=== PATIENT | male | born 1955 | race Caucasian/White ===

== ENCOUNTER 2020-07-10 07:04 | Outpatient (REF) | payer MEDICARE, SELFPAY ==
[2020-07-10 07:51] LABS: MANUAL DIFF FLAG NO
[2020-07-10 07:54] LABS: Basophils Percent Auto 0.4 % (0-2); Eosinophils Absolute Auto 0.1 X10*3/uL (0.0-0.4); Eosinophils Percent Auto 1.8 % (0-4); Hematocrit 41.7 % (42-52); Hemoglobin 13.9 g/dl (14.0-18.0); Imm Gran Abs Auto 0.02 X10*3/uL (0.00-0.03); Imm Gran Pct Auto 0.3 % (0.0-0.4); Lymphocytes Absolute Auto 1.5 X10*3/uL (1.2-4.9); Mean Corpuscular HGB Conc 33.3 g/dl (31.0-36.0); Mean Corpuscular Volume 95.9 fL (80-98); Mean Platelet Volume 9.8 fL (9.4-12.4); Monocytes Absolute Auto 0.7 X10*3/uL (0.1-1.2); Monocytes Percent Auto 10.7 % (2-11); Neutrophils Absolute Auto 4.3 X10*3/uL (2.0-8.3); Neutrophils Percent Auto 63.8 % (45-73); Platelet Count 243 X10*3/uL (160-400); Red Blood Count 4.35 X10*6/uL (4.60-5.80); Red Cell Distribution Width 12.2 % (11.0-16.0); White Blood Count 6.7 X10*3/uL (4.8-10.8)
[2020-07-10 08:21] LABS: Alanine Aminotransferase 11 U/L (0-40); Albumin Level 4.2 g/dL (3.5-5.0); Alkaline Phosphatase 96 U/L (39-117); Anion Gap 12 (12-20); Aspartate Amino Transferase 14 U/L (5-37); Bilirubin Total 0.7 mg/dL (0.0-1.0); Blood Urea Nitrogen 19 mg/dL (9-16); Carbon Dioxide 32 mmol/L (22-29); Chloride 100 mmol/L (96-108); Cholesterol 148 mg/dL; Estimated Glomerular Filt Rate > 60; Glucose Fasting 134 mg/dL (60-99); HDL Cholesterol 46 mg/dL; LDL Cholesterol Calculated 83 mg/dl; Potassium 4.9 mmol/l (3.3-5.1); Sodium 139 mmol/L (135-145); Total Protein 6.9 g/dL (6.5-8.0); Triglycerides 98 mg/dL
[2020-07-10 08:42] LABS: TSH reflex Free T4 1.58 mIU/mL (0.32-4.0); Vitamin D 25-OH Total 25.9 ng/mL (>30)
[2020-07-10 09:05] LABS: Glucose Urine UA 500 MG/DL (NEG); Leukocyte Esterase Urine NEG (NEG); Nitrite Urine NEG (NEG); PH 5.5 (5.0-8.0); Specific Gravity - Urine 1.025 (1.005-1.025); Urine Blood NEG (NEG); Urine Ketones NEG (NEG); Urine Protein NEG (NEG-TRACE)
[2020-07-10 09:06] LABS: Appearance Urine CLEAR; Color Urine YELLOW
[2020-07-10 09:33] LABS: Creatinine Urine 107.97 mg/dL; Microalbum/Creatinine Ratio Ur 6.4 ug/mg cr
[2020-07-10 09:52] LABS: Mucus Urine TRACE /LPF; RBC Urine 0 /HPF (0); Squamous Epithelial Cell Urine TRACE /LPF; WBC Urine 0 /HPF (0-4)
== END 2020-07-10 07:05 | disposition home or self-care (01) ==
LOC: HO.LAB 07:04
PROVIDERS: PCP Internal Medicine; Visit Provider Internal Medicine
DX: E11.9 Type 2 diabetes mellitus without complications (principal); I10 Essential (primary) hypertension; E78.5 Hyperlipidemia, unspecified; D64.9 Anemia, unspecified; E55.9 Vitamin D deficiency, unspecified; E66.9 Obesity, unspecified
CPT/HCPCS: 36415; 80053; 80061; 81001; 81003; 82043; 82306; 84443; 85025

== ENCOUNTER 2020-07-16 16:26 | Outpatient (REF) | payer MEDICARE, SELFPAY | END 2020-07-16 16:27 | disposition home or self-care (01) | LOC: HO.LNP 16:26 | PROVIDERS: Visit Provider Internal Medicine | DX: H60.21 Malignant otitis externa, right ear (principal) | CPT/HCPCS: 87070; 87077; 87186; 87205 ==

== ENCOUNTER 2020-11-13 07:01 | Outpatient (REF) | payer MEDICARE, SELFPAY ==
[2020-11-13 07:28] LABS: MANUAL DIFF FLAG NO
[2020-11-13 07:37] LABS: Basophils Percent Auto 0.6 % (0-2); Eosinophils Absolute Auto 0.1 X10*3/uL (0.0-0.4); Eosinophils Percent Auto 2.1 % (0-4); Hemoglobin 13.6 g/dl (14.0-18.0); Imm Gran Abs Auto 0.01 X10*3/uL (0.00-0.03); Imm Gran Pct Auto 0.2 % (0.0-0.4); Lymphocytes Absolute Auto 1.4 X10*3/uL (1.2-4.9); Lymphocytes Percent Auto 21.6 % (20-40); Mean Corpuscular HGB Conc 33.2 g/dl (31.0-36.0); Mean Corpuscular Volume 96.5 fL (80-98); Mean Platelet Volume 9.8 fL (9.4-12.4); Monocytes Absolute Auto 0.6 X10*3/uL (0.1-1.2); Monocytes Percent Auto 9.5 % (2-11); Neutrophils Absolute Auto 4.3 X10*3/uL (2.0-8.3); Platelet Count 238 X10*3/uL (160-400); Red Blood Count 4.25 X10*6/uL (4.60-5.80); Red Cell Distribution Width 12.7 % (11.0-16.0); White Blood Count 6.6 X10*3/uL (4.8-10.8)
[2020-11-13 07:44] LABS: Glucose Urine UA 500 MG/DL (NEG); Leukocyte Esterase Urine NEG (NEG); Nitrite Urine NEG (NEG); Specific Gravity - Urine 1.025 (1.005-1.025); Urine Blood NEG (NEG); Urine Ketones NEG (NEG); Urine Protein NEG (NEG-TRACE)
[2020-11-13 07:51] LABS: Appearance Urine CLEAR; Color Urine YELLOW
[2020-11-13 08:00] LABS: Creatinine Urine 135.53 mg/dL; Microalbum/Creatinine Ratio Ur 5.9 ug/mg cr
[2020-11-13 08:02] LABS: Alanine Aminotransferase 9 U/L (0-40); Albumin Level 4.2 g/dL (3.5-5.0); Alkaline Phosphatase 96 U/L (39-117); Anion Gap 12 (12-20); Aspartate Amino Transferase 13 U/L (5-37); Bilirubin Total 0.9 mg/dL (0.0-1.0); Blood Urea Nitrogen 18 mg/dL (9-16); Calcium 8.8 mg/dL (8.4-10.2); Carbon Dioxide 29 mmol/L (22-29); Chloride 103 mmol/L (96-108); Cholesterol 137 mg/dL; Estimated Glomerular Filt Rate > 60; Glucose Fasting 166 mg/dL (60-99); HDL Cholesterol 45 mg/dL; LDL Cholesterol Calculated 75 mg/dl; Potassium 4.2 mmol/L (3.3-5.1); Sodium 140 mmol/L (135-145); Triglycerides 86 mg/dL
[2020-11-13 08:25] LABS: TSH reflex Free T4 1.74 uIU/mL (0.32-4.0); Vitamin D 25-OH Total 24.7 ng/mL (>30)
== END 2020-11-13 07:02 | disposition home or self-care (01) ==
LOC: HO.LAB 07:01
PROVIDERS: PCP Internal Medicine; Visit Provider Internal Medicine
DX: I10 Essential (primary) hypertension (principal); E78.00 Pure hypercholesterolemia, unspecified; E11.9 Type 2 diabetes mellitus without complications; E66.9 Obesity, unspecified; E55.9 Vitamin D deficiency, unspecified
CPT/HCPCS: 36415; 80053; 80061; 81003; 82043; 82306; 84443; 85025

== ENCOUNTER 2021-03-16 06:26 | Outpatient (REF) | payer MEDICARE, SELFPAY ==
[2021-03-16 06:59] LABS: MANUAL DIFF FLAG NO
[2021-03-16 07:03] LABS: Basophils Percent Auto 0.5 % (0-2); Eosinophils Absolute Auto 0.1 X10*3/uL (0.0-0.4); Eosinophils Percent Auto 1.7 % (0-4); Hematocrit 41.9 % (42-52); Imm Gran Abs Auto 0.02 X10*3/uL (0.00-0.03); Imm Gran Pct Auto 0.3 % (0.0-0.4); Lymphocytes Absolute Auto 1.5 X10*3/uL (1.2-4.9); Lymphocytes Percent Auto 22.6 % (20-40); Mean Corpuscular HGB Conc 33.4 g/dl (31.0-36.0); Mean Corpuscular Hemoglobin 32.4 pg (27.0-33.0); Monocytes Absolute Auto 0.8 X10*3/uL (0.1-1.2); Monocytes Percent Auto 11.9 % (2-11); Neutrophils Absolute Auto 4.2 X10*3/uL (2.0-8.3); Platelet Count 242 X10*3/uL (160-400); Red Blood Count 4.32 X10*6/uL (4.60-5.80); Red Cell Distribution Width 12.6 % (11.0-16.0); White Blood Count 6.6 X10*3/uL (4.8-10.8)
[2021-03-16 07:31] LABS: Alanine Aminotransferase 10 U/L (0-40); Albumin Level 4.3 g/dL (3.5-5.0); Alkaline Phosphatase 96 U/L (39-117); Anion Gap 10 (12-20); Aspartate Amino Transferase 14 U/L (5-37); Bilirubin Total 0.6 mg/dL (0.0-1.0); Blood Urea Nitrogen 13 mg/dL (9-16); Calcium 9.6 mg/dL (8.4-10.2); Carbon Dioxide 33 mmol/L (22-29); Chloride 103 mmol/L (96-108); Cholesterol 132 mg/dL; Estimated Glomerular Filt Rate > 60; Glucose Fasting 116 mg/dL (60-99); HDL Cholesterol 45 mg/dL; LDL Cholesterol Calculated 73 mg/dl; Sodium 141 mmol/L (135-145); Total Protein 7.1 g/dL (6.5-8.0); Triglycerides 74 mg/dL
[2021-03-16 07:53] LABS: TSH reflex Free T4 1.55 uIU/mL (0.32-4.0); Vitamin D 25-OH Total 27.5 ng/mL (>30)
[2021-03-16 08:08] LABS: Estimated Average Glucose 194 mg/dL; Hemoglobin A1c % 8.4 %
[2021-03-16 10:10] LABS: Glucose Urine UA NEG (NEG); Leukocyte Esterase Urine NEG (NEG); Nitrite Urine NEG (NEG); Specific Gravity - Urine <= 1.005 (1.005-1.025); Urine Blood NEG (NEG); Urine Ketones NEG (NEG); Urine Protein NEG (NEG-TRACE)
[2021-03-16 10:11] LABS: Appearance Urine CLEAR; Color Urine YELLOW
[2021-03-16 10:22] LABS: Creatinine Urine 27.42 mg/dL; Microalbumin Urine < 5.0 mg/L
== END 2021-03-16 06:27 | disposition home or self-care (01) ==
LOC: HO.LAB 06:26
PROVIDERS: PCP Internal Medicine; Visit Provider Internal Medicine
DX: D64.9 Anemia, unspecified (principal); I10 Essential (primary) hypertension; E78.00 Pure hypercholesterolemia, unspecified; E11.9 Type 2 diabetes mellitus without complications; E66.9 Obesity, unspecified; E55.9 Vitamin D deficiency, unspecified
CPT/HCPCS: 36415; 80053; 80061; 81003; 82043; 82306; 83036; 84443; 85025

== ENCOUNTER 2021-10-13 06:06 | Outpatient (REF) | payer MEDICARE, SELFPAY ==
[2021-10-13 06:24] LABS: MANUAL DIFF FLAG NO
[2021-10-13 07:27] LABS: Basophils Percent Auto 0.4 % (0-2); Eosinophils Absolute Auto 0.1 X10*3/uL (0.0-0.4); Eosinophils Percent Auto 1.9 % (0-4); Hematocrit 43.5 % (42.0-52.0); Hemoglobin 14.3 g/dl (14.0-18.0); Imm Gran Abs Auto 0.02 X10*3/uL (0.00-0.03); Imm Gran Pct Auto 0.3 % (0.0-0.4); Lymphocytes Absolute Auto 1.7 X10*3/uL (1.2-4.9); Lymphocytes Percent Auto 24.8 % (20-40); Mean Corpuscular HGB Conc 32.9 g/dl (31.0-36.0); Mean Corpuscular Hemoglobin 31.8 pg (27.0-33.0); Mean Corpuscular Volume 96.9 fL (80.0-98.0); Mean Platelet Volume 10.2 fL (9.4-12.4); Monocytes Absolute Auto 0.7 X10*3/uL (0.1-1.2); Monocytes Percent Auto 10.8 % (2-11); Neutrophils Absolute Auto 4.1 x10*3/uL (2.0-8.3); Neutrophils Percent Auto 61.8 % (45-73); Platelet Count 283 X10*3/uL (160-400); Red Blood Count 4.49 X10*6/uL (4.60-5.80); Red Cell Distribution Width 12.3 % (11.0-16.0); White Blood Count 6.7 X10*3/uL (4.8-10.8)
[2021-10-13 07:50] LABS: Estimated Average Glucose 200 mg/dL; Hemoglobin A1c % 8.6 %
[2021-10-13 07:55] LABS: B Type Natriuretic Peptide < 10 pg/mL (<100)
[2021-10-13 07:59] LABS: Alanine Aminotransferase 12 U/L (0-40); Albumin Level 4.2 g/dL (3.5-5.0); Alkaline Phosphatase 104 U/L (39-117); Anion Gap 11 (12-20); Aspartate Amino Transferase 14 U/L (5-37); Bilirubin Total 0.7 mg/dL (0.0-1.0); Blood Urea Nitrogen 14 mg/dL (9-16); Calcium 9.5 mg/dL (8.4-10.2); Carbon Dioxide 31 mmol/L (22-29); Chloride 100 mmol/L (96-108); Cholesterol 115 mg/dL; Estimated Glomerular Filt Rate > 60; Glucose Fasting 147 mg/dL (60-99); HDL Cholesterol 37 mg/dL; LDL Cholesterol Calculated 62 mg/dl; Potassium 4.4 mmol/L (3.3-5.1); Sodium 138 mmol/L (135-145); Total Protein 7.1 g/dL (6.5-8.0); Triglycerides 82 mg/dL
[2021-10-13 08:08] LABS: Erythrocyte Sedimentation Rate 7 MM/HR (0-15)
[2021-10-13 08:13] LABS: Creatinine Urine 65.23 mg/dL; Microalbum/Creatinine Ratio Ur 7.6 ug/mg cr
[2021-10-13 08:23] LABS: TSH reflex Free T4 2.92 uIU/mL (0.32-4.0); Vitamin D 25-OH Total 27.9 ng/mL (>30)
[2021-10-13 08:26] LABS: Appearance Urine CLEAR; Color Urine YELLOW; Glucose Urine UA 100 MG/DL (NEG); Leukocyte Esterase Urine NEG (NEG); Nitrite Urine NEG (NEG); Urine Blood NEG (NEG); Urine Ketones NEG (NEG); Urine Protein NEG (NEG-TRACE)
== END 2021-10-13 06:07 | disposition home or self-care (01) ==
LOC: HO.LAB 06:06
PROVIDERS: PCP Internal Medicine; Visit Provider Internal Medicine
DX: E11.9 Type 2 diabetes mellitus without complications (principal); R60.0 Localized edema; D64.9 Anemia, unspecified; I10 Essential (primary) hypertension; E55.9 Vitamin D deficiency, unspecified; E78.00 Pure hypercholesterolemia, unspecified; E66.9 Obesity, unspecified; Z85.048 Personal history of other malignant neoplasm of rectum, rectosigmoid junction, and anus
CPT/HCPCS: 36415; 80053; 80061; 81003; 82043; 82306; 83036; 83880; 84443; 85025; 85652

== ENCOUNTER 2022-01-18 06:18 | Outpatient (REF) | payer MEDICARE, SELFPAY ==
[2022-01-18 06:35] LABS: MANUAL DIFF FLAG NO
[2022-01-18 07:33] LABS: Basophils Percent Auto 0.5 % (0-2); Eosinophils Absolute Auto 0.2 X10*3/uL (0.0-0.4); Hematocrit 42.2 % (42.0-52.0); Hemoglobin 13.9 g/dl (14.0-18.0); Imm Gran Abs Auto 0.02 X10*3/uL (0.00-0.03); Imm Gran Pct Auto 0.3 % (0.0-0.4); Lymphocytes Absolute Auto 1.8 X10*3/uL (1.2-4.9); Lymphocytes Percent Auto 22.2 % (20-40); Mean Corpuscular HGB Conc 32.9 g/dl (31.0-36.0); Mean Corpuscular Hemoglobin 31.9 pg (27.0-33.0); Mean Corpuscular Volume 96.8 fL (80.0-98.0); Mean Platelet Volume 10.4 fL (9.4-12.4); Monocytes Absolute Auto 0.8 X10*3/uL (0.1-1.2); Monocytes Percent Auto 10.3 % (2-11); Neutrophils Absolute Auto 5.1 x10*3/uL (2.0-8.3); Neutrophils Percent Auto 64.7 % (45-73); Platelet Count 272 X10*3/uL (160-400); Red Blood Count 4.36 X10*6/uL (4.60-5.80); Red Cell Distribution Width 12.6 % (11.0-16.0); White Blood Count 7.9 X10*3/uL (4.8-10.8)
[2022-01-18 07:41] LABS: Estimated Average Glucose 203 mg/dL; Hemoglobin A1c % 8.7 %
[2022-01-18 07:54] LABS: Alanine Aminotransferase 12 U/L (0-40); Albumin Level 4.3 g/dL (3.5-5.0); Alkaline Phosphatase 93 U/L (39-117); Anion Gap 13 (12-20); Aspartate Amino Transferase 14 U/L (5-37); Bilirubin Total 0.9 mg/dL (0.0-1.0); Blood Urea Nitrogen 16 mg/dL (9-16); Calcium 9.6 mg/dL (8.4-10.2); Carbon Dioxide 30 mmol/L (22-29); Chloride 99 mmol/L (96-108); Cholesterol 147 mg/dL; Estimated Glomerular Filt Rate > 60; Glucose Fasting 166 mg/dL (60-99); HDL Cholesterol 44 mg/dL; LDL Cholesterol Calculated 81 mg/dl; Potassium 4.4 mmol/L (3.3-5.1); Sodium 138 mmol/L (135-145); Total Protein 7.2 g/dL (6.5-8.0); Triglycerides 110 mg/dL
[2022-01-18 08:12] LABS: Appearance Urine CLEAR; Color Urine YELLOW; Glucose Urine UA 250 MG/DL (NEG); Leukocyte Esterase Urine NEG (NEG); Nitrite Urine NEG (NEG); Urine Blood NEG (NEG); Urine Ketones NEG (NEG); Urine Protein NEG (NEG-TRACE)
[2022-01-18 08:17] LABS: TSH reflex Free T4 2.32 uIU/mL (0.32-4.0); Vitamin D 25-OH Total 27.6 ng/mL (>30)
[2022-01-18 08:29] LABS: Creatinine Urine 94.22 mg/dL; Microalbum/Creatinine Ratio Ur 8.4 ug/mg cr
== END 2022-01-18 06:19 | disposition home or self-care (01) ==
LOC: HO.LAB 06:18
PROVIDERS: PCP Internal Medicine; Visit Provider Internal Medicine
DX: E55.9 Vitamin D deficiency, unspecified (principal); I10 Essential (primary) hypertension; E78.00 Pure hypercholesterolemia, unspecified; E11.9 Type 2 diabetes mellitus without complications
CPT/HCPCS: 36415; 80053; 80061; 81003; 82043; 82306; 83036; 84443; 85025

== ENCOUNTER 2022-01-19 09:07 | Outpatient (REF) | payer MEDICARE, SELFPAY ==
--- NOTE | ~2022-01-19 | XR_ITS ---
EXAMINATION: XR HUMERUS, LEFT CLINICAL INFORMATION: Pain COMPARISON: None TECHNIQUE: AP and lateral views of the left humerus. FINDINGS: No fracture of the left humerus. No focal soft tissue swelling identified. No radiopaque foreign body. Visualized portions of the left shoulder and elbow are grossly unremarkable. Visualized left-sided ribs and lung parenchyma are unremarkable. XR/XR humerus LT IMPRESSION: No fracture.
== END 2022-01-19 09:08 | disposition home or self-care (01) ==
LOC: HO.XRAY 09:07
PROVIDERS: PCP Internal Medicine; Visit Provider Nurse Practitioner Family
DX: M79.602 Pain in left arm (principal)
CPT/HCPCS: 73060

== ENCOUNTER 2022-02-22 06:47 | Outpatient (RCR) | payer MEDICARE, SELFPAY ==
[2022-02-22 07:15] VITALS: BP 192/92; PULSE 98; O2SAT 95
--- NOTE | 2022-02-22 08:54 | MHC.PT.EP ---
[facility] [place] Office [place] Office [place] Office [address] Jocelyne Caldwell [address] [phone] F: [phone] F: [phone] F: [phone] F: [phone] Physical Therapy Plan of Care Date of Evaluation: Date of Surgery: Diagnosis: UNSTEADINESS ON FEET Assessment: 66 YO MALE REF TO PT WITH A DIAGNOSIS OF UNSTEADINESS ON HIS FEET-> HE NOTES HE HAS THUS FAR BEEN ABLE TO PREVENT HIMSELF FROM FALLING. HE RETIRED 3 YRS AGO FROM A PHYSICALLY DEMANDING JOB AND HE NOTES HIS ACTIVITY LEVEL HAS GRADUALLY DECREASED. HIS PT EVAL WAS LIGHTLY INITIATED, IN ASSESSMENT, BP WAS ELEVATED AND THEREFORE ACTIVITY WAS MODIFIED. Pt'S MD WAS CONTACTED AND UPDATED RE FINDINGS. Pt CURRENTLY ASYMPTOMATIC. OBJECTIVELY, Pt HAS DECR POSTURAL AWARENESS W MILD SCOLIOSIS AND LIMITED TRUNK ROTAT, DECR MOBILITY IN EBONIE ANKLES/ HS/ MILDLY IN HPS, DECR LEs STRENGTH EVIDENT WITH HIS INCR USE OF UEs WITH SIT <-> STAND TRANSFERS. OBSERVED GAIT: TIGHT PSOAS, TIGH CALVES, DECR TRUNK ROTAT, AND LIMITED UEs SWING. Pt NOTES DIFFIC DESCENDING > ASCENDING ESCALATORS, STAIR MGMT, INCR AMB, AND IN/ OUT OF HIS VEHICLE. I DID NOT PERFORM BALANCE TESTS OR FORMAL RESISTIVE TASKS TODAY, PREFER PERFORMING AFTER BP CONCERNS ADDRESSED. Pt WILL BE A GOOD PT CANDIDATE FOR SKILLED PT TO ADDRESS LEs FLEXIB, Jt ROM, LEs STRENGTH, PROGR FUNCT MOBILITY , AND DEV A SOLID HEP. 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 Manual therapy to restore motion and function. Therapeutic exercise to improve strength and flexibility. Neuromuscular re-education for posture and balance. Therapeutic activities to return to functional activities of daily living. Electronically signed by: Lalitha Woo,PT Please sign and return to therapist. Thank you for your referral.
--- NOTE | 2022-04-05 08:57 | MHC.PT.DC ---
[facility] [place] Office [place] Office [place] Office [address] Jocelyne Caldwell [address] [phone] F: [phone] F: [phone] F: [phone] F: [phone] Physical Therapy Discharge Report Diagnosis: UNSTEADINESS ON FEET Date of Surgery: Date of Evaluation: 02/22/22 Date of Discharge: 04/05/22 Treatments to Date: 1 Cancellations to Date: No Shows to Date: Discharge Status: Recommend MD Follow-up Discharge Summary: Pt'S PT EVAL WAS LIGHTLY INITIATED, IN ASSESSMENT, BP WAS ELEVATED AND THEREFORE ACTIVITY WAS MODIFIED. Pt'S MD WAS CONTACTED AND UPDATED RE FINDINGS. PT WAS PLACED ON HOLD AWAITING FURTHER ORDERS APPROPRIATE. Electronically signed by: Lalitha WooPT Please sign and return to therapist. Thank you for your referral.
== END 2022-04-05 08:56 | disposition home or self-care (01) ==
LOC: HO.PT 06:47
PROVIDERS: PCP Internal Medicine; Visit Provider Nurse Practitioner Family
DX: R26.81 Unsteadiness on feet (principal)
CPT/HCPCS: 97162

== ENCOUNTER 2022-06-05 06:51 | Outpatient (REF) | payer MEDICARE, SELFPAY ==
[2022-06-05 07:39] LABS: Cholesterol 128 mg/dL; HDL Cholesterol 32 mg/dL; LDL Cholesterol Calculated 77 mg/dl; Triglycerides 95 mg/dL
[2022-06-05 07:45] LABS: Hematocrit 40.5 % (42.0-52.0); Hemoglobin 13.4 g/dl (14.0-18.0); Mean Corpuscular HGB Conc 33.1 g/dl (31.0-36.0); Mean Corpuscular Hemoglobin 31.3 pg (27.0-33.0); Mean Corpuscular Volume 94.6 fL (80.0-98.0); Mean Platelet Volume 10.3 fL (9.4-12.4); Platelet Count 280 X10*3/uL (160-400); Red Blood Count 4.28 X10*6/uL (4.60-5.80); Red Cell Distribution Width 12.5 % (11.0-16.0); White Blood Count 6.7 X10*3/uL (4.8-10.8)
[2022-06-05 07:51] LABS: Estimated Average Glucose 243 mg/dL; Hemoglobin A1c % 10.1 %
[2022-06-08 17:02] LABS: Vitamin D 25-OH, D2 <4 ng/mL; Vitamin D 25-OH, D3 37 ng/mL; Vitamin D 25-OH, Total 37 ng/mL (30-100)
== END 2022-06-05 06:52 | disposition home or self-care (01) ==
LOC: HO.LAB 06:51
PROVIDERS: PCP Internal Medicine; Visit Provider Nurse Practitioner Family
DX: E66.9 Obesity, unspecified (principal); E78.00 Pure hypercholesterolemia, unspecified; I10 Essential (primary) hypertension; R26.81 Unsteadiness on feet; E11.9 Type 2 diabetes mellitus without complications; D64.9 Anemia, unspecified
CPT/HCPCS: 36415; 80061; 82306; 83036; 85027

== ENCOUNTER 2022-09-02 07:07 | Outpatient (REF) | payer MEDICARE, SELFPAY ==
[2022-09-02 07:28] LABS: MANUAL DIFF FLAG NO
[2022-09-02 07:34] LABS: Basophils Absolute Auto 0.1 X10*3/uL (0.0-0.2); Basophils Percent Auto 0.7 % (0-2); Eosinophils Absolute Auto 0.1 X10*3/uL (0.0-0.4); Eosinophils Percent Auto 1.6 % (0-4); Hematocrit 45.5 % (42.0-52.0); Hemoglobin 14.8 g/dl (14.0-18.0); Imm Gran Abs Auto 0.02 X10*3/uL (0.00-0.03); Imm Gran Pct Auto 0.3 % (0.0-0.4); Lymphocytes Absolute Auto 1.5 X10*3/uL (1.2-4.9); Mean Corpuscular HGB Conc 32.5 g/dl (31.0-36.0); Mean Corpuscular Hemoglobin 30.8 pg (27.0-33.0); Mean Corpuscular Volume 94.8 fL (80.0-98.0); Mean Platelet Volume 9.6 fL (9.4-12.4); Monocytes Absolute Auto 0.7 X10*3/uL (0.1-1.2); Monocytes Percent Auto 9.1 % (2-11); Neutrophils Absolute Auto 5.2 x10*3/uL (2.0-8.3); Neutrophils Percent Auto 68.3 % (45-73); Platelet Count 291 X10*3/uL (160-400); White Blood Count 7.6 X10*3/uL (4.8-10.8)
[2022-09-02 07:52] LABS: Estimated Average Glucose 171 mg/dL; Hemoglobin A1c % 7.6 %
[2022-09-02 08:19] LABS: Alanine Aminotransferase 15 U/L (0-40); Albumin Level 4.4 g/dL (3.5-5.0); Alkaline Phosphatase 91 U/L (39-117); Anion Gap 12 (12-20); Aspartate Amino Transferase 15 U/L (5-37); Bilirubin Total 0.8 mg/dL (0.0-1.0); Blood Urea Nitrogen 16 mg/dL (9-16); Calcium 9.6 mg/dL (8.4-10.2); Carbon Dioxide 30 mmol/L (22-29); Chloride 102 mmol/L (96-108); Cholesterol 116 mg/dL; Estimated Glomerular Filt Rate > 60; Glucose Fasting 124 mg/dL (60-99); HDL Cholesterol 34 mg/dL; LDL Cholesterol Calculated 66 mg/dl; Potassium 4.4 mmol/L (3.3-5.1); Sodium 140 mmol/L (135-145); TSH reflex Free T4 2.36 uIU/mL (0.32-4.0); Total Protein 7.2 g/dL (6.5-8.0); Triglycerides 80 mg/dL; Vitamin D 25-OH Total 51.8 ng/mL (>30)
[2022-09-02 09:02] LABS: Appearance Urine Clear; Color Urine Dark Yellow; Glucose Urine UA 250 mg/dL (Negative); Leukocyte Esterase Urine Negative (Negative); Nitrite Urine Negative (Negative); PH 5.5 (5.0-9.0); Specific Gravity - Urine 1.025 (1.005-1.025); Urine Blood Negative (Negative); Urine Ketones Negative (Negative); Urine Protein Negative (Neg-Trace)
[2022-09-02 09:12] LABS: Folate > 20.0 ng/mL (> or = 4.0); Vitamin B12 562 pg/mL (200-900)
[2022-09-02 09:34] LABS: Creatinine Urine 168.56 mg/dL; Microalbum/Creatinine Ratio Ur 7.1 ug/mg cr
[2022-09-05 01:54] LABS: C Peptide 1.05 ng/mL (0.80-3.85)
[2022-09-06 17:04] LABS: Glutamic acid decarboxylase Ab <5 IU/mL (<5)
== END 2022-09-02 07:08 | disposition home or self-care (01) ==
LOC: HO.LAB 07:07
PROVIDERS: PCP Internal Medicine; Visit Provider Internal Medicine
DX: E55.9 Vitamin D deficiency, unspecified (principal); E53.8 Deficiency of other specified B group vitamins; R20.2 Paresthesia of skin; I10 Essential (primary) hypertension; E78.00 Pure hypercholesterolemia, unspecified; E11.9 Type 2 diabetes mellitus without complications
CPT/HCPCS: 36415; 80053; 80061; 81003; 82043; 82306; 82607; 82746; 83036; 84443; 84681; 85025; 86341

== ENCOUNTER 2022-12-10 15:42 | Emergency (ER) | payer MEDICARE, SELFPAY ==
--- NOTE | ~2022-12-10 | CT_ITS ---
EXAMINATION: CT HEAD WITHOUT CONTRAST CT CERVICAL SPINE WITHOUT CONTRAST CLINICAL INFORMATION: Neck pain, syncope, head strike COMPARISON: None TECHNIQUE: A noncontrast CT of the head and a noncontrast CT of the cervical spine with sagittal and coronal reformats. This CT examination was performed using dose optimization techniques as appropriate, variously including the following: *Automated exposure control *Adjustment of mA and/or kV according to patient size (this includes techniques or standardized protocols for targeted exams where dose is matched to indication/reason for exam; i.e. extremities or head) *Use of iterative reconstruction technique DLP: 1184 FINDINGS: No intra-axial or extra-axial hemorrhage. No acute territorial infarct. Chronic small vessel ischemic disease of the periventricular white matter with generalized atrophy. Preservation of guzman-white matter differentiation. No mass, mass effect, or midline shift. No fracture. Partial opacification of the left mastoid air cells. The right mastoid air cells and visualized paranasal sinuses are otherwise clear. Normal alignment of the cervical spine. No fracture. No prevertebral soft tissue swelling. Multilevel degenerative disc disease, most prominent at C5-C6 and C6-C7. Prominent degenerative changes at the anterior atlantoaxial junction. CT/CT head/brain wo IV con IMPRESSION: 1. No acute intracranial abnormality. Partial opacification of the left mastoid air cells inferiorly. Could represent mastoiditis. 2. No cervical spine fracture or traumatic subluxation.
--- NOTE | ~2022-12-10 | XR_ITS ---
EXAMINATION: XR CHEST CLINICAL INFORMATION: Fall with chest trauma COMPARISON: None available. TECHNIQUE: Frontal view of the chest was obtained. FINDINGS: No significant abnormality is noted involving the heart, lungs, mediastinum, bony thorax or soft tissues. No fractures are seen of the bony thorax. XR/XR chest 1V IMPRESSION: Unremarkable examination.
--- NOTE | ~2022-12-10 | CT_ITS ---
EXAMINATION: CT HEAD WITHOUT CONTRAST CT CERVICAL SPINE WITHOUT CONTRAST CLINICAL INFORMATION: Neck pain, syncope, head strike COMPARISON: None TECHNIQUE: A noncontrast CT of the head and a noncontrast CT of the cervical spine with sagittal and coronal reformats. This CT examination was performed using dose optimization techniques as appropriate, variously including the following: *Automated exposure control *Adjustment of mA and/or kV according to patient size (this includes techniques or standardized protocols for targeted exams where dose is matched to indication/reason for exam; i.e. extremities or head) *Use of iterative reconstruction technique DLP: 1184 FINDINGS: No intra-axial or extra-axial hemorrhage. No acute territorial infarct. Chronic small vessel ischemic disease of the periventricular white matter with generalized atrophy. Preservation of guzman-white matter differentiation. No mass, mass effect, or midline shift. No fracture. Partial opacification of the left mastoid air cells. The right mastoid air cells and visualized paranasal sinuses are otherwise clear. Normal alignment of the cervical spine. No fracture. No prevertebral soft tissue swelling. Multilevel degenerative disc disease, most prominent at C5-C6 and C6-C7. Prominent degenerative changes at the anterior atlantoaxial junction. CT/CT cervical spine wo IV con IMPRESSION: 1. No acute intracranial abnormality. Partial opacification of the left mastoid air cells inferiorly. Could represent mastoiditis. 2. No cervical spine fracture or traumatic subluxation.
[2022-12-10 16:02] VITALS: BP 94/60; PULSE 102; O2SAT 94
[2022-12-10 16:15] VITALS: BP 137/65; PULSE 101; RESP 20; TEMP 35.9; BMI 30.8
--- NOTE | 2022-12-10 18:04 | ECG_ITS ---
Test Reason : SOB Blood Pressure : / mmHG Vent. Rate : 101 BPM Atrial Rate : 101 BPM P-R Int : 174 ms QRS Dur : 096 ms QT Int : 360 ms P-R-T Axes : 055 058 030 degrees QTc Int : 466 ms Sinus tachycardia Otherwise normal ECG When compared with ECG of 30-OCT-2004 17:59, ST now depressed in Lateral leads Nonspecific T wave abnormality now evident in Lateral leads Referred By: Chelo Bruce Electronically Signed By:CHUNG TALBERT
--- NOTE | 2022-12-10 18:16 | ED.GENADULT ---
HPI - General Adult General Chief complaint: Dizziness Stated complaint: SYNCOPE Time Seen by Provider: 12/10/22 18:03 Source: patient Mode of arrival: ambulatory Limitations: no limitations History of Present Illness HPI narrative: 66-year-old male history of obesity, anemia, diabetes, hypertension presenting to the emergency department for evaluation of near syncopal episode just prior to arrival. Patient tells me that he has been feeling sick for the past few days with congestion, productive cough, fatigue, malaise, chills. He tells me me was walking out of the shower, felt dizzy and lightheaded called for help came into the bathroom, he lowered himself to the ground as he felt like he was going to fall, witnessed this, he did not lose consciousness, no head strike no injuries to chest, abdomen or pelvis, No LOC . Patient reports he just has not been feeling well and battling a cold and has been eating and drinking less than usual. Feeling slightly weak. Denies sick contacts. Denies chest pain, shortness of breath, nausea, vomiting, abdominal pain, headache, vision changes, dizziness. NIH stroke scale 0 on arrival. Related Data Home Medications Medication Instructions Recorded Confirmed cholecalciferol (vitamin D3) 50 50 mcg PO DAILY 07/15/20 09/06/22 mcg (2,000 unit) capsule Previous Rx's Medication Instructions Recorded pen needle, diabetic 32 gauge x 1 ea subcut DAILY #30 ea 07/28/21 (BD Ultra-Fine Racquel Pen Needle) atorvastatin 20 mg tablet 20 mg PO BEDTIME 90 days #90 tabs 04/10/22 pioglitazone 30 mg tablet 30 mg PO DAILY 90 days #90 tabs 04/12/22 lisinopril 10 mg tablet 10 mg PO DAILY 90 days #90 tabs 08/11/22 Trulicity 0.75 mg/0.5 mL 0.75 mg (0.5 mL) subcut QWEEK 4 09/06/22 subcutaneous pen injector weeks #2 mL (dulaglutide) insulin glargine U-300 conc 300 35 unit (0.1167 mL) subcut DAILY 09/06/22 unit/mL (1.5 mL) subcutaneous pen 90 days #10.503 mL (Toujeo SoloStar U-300 Insulin) metformin 1,000 mg tablet 1,000 mg PO BID 90 days #180 tabs 09/06/22 albuterol sulfate 90 mcg/actuation 2 inh inhalation Q4-6H PRN 12/10/22 breath activated powder inhaler shortness of breath or wheezing #1 ea benzonatate 100 mg capsule 100 mg PO BID PRN cough #20 caps 12/10/22 doxycycline hyclate 100 mg capsule 100 mg PO BID 10 days #20 caps 12/10/22 Allergies Allergy/AdvReac Type Severity Reaction Status Date / Time dulaglutide [Trulicity] AdvReac Intermediate abdominal Verified 09/06/22 09:08 pain Review of Systems Review of Systems: Constitutional : No Weight loss, No Fever, No Chills, + Fatigue, + Malaise ENT/Mouth : No sore throat, No Rhinorrhea, + congestion Eyes: No Eye Pain, No Swelling, No Redness Cardiovascular : No Chest Pain, No SOB, No Dyspnea on Exertion, No Orthopnea, No Edema, No Palpitations Respiratory : + Cough, + Sputum, No Wheezing Gastrointestinal : No Nausea, No Vomiting, No Diarrhea, No Constipation, No abdominal Pain, No Hematochezia, No Melena Genitourinary : No Dysuria, No Urinary Frequency, No Hematuria, Musculoskeletal : No joint pain, No Myalgias, No Joint Swelling Skin : No Skin Lesions, No rash Neuro : No Weakness, No Numbness, No Dizziness, No Headache Psych : No Anxiety/Panic, No Depression All other systems reviewed and are negative Yes all other systems are reviewed and are negative [facility] Past Medical History Attestation statement: The following information was validated with the patient. Source: old records reviewed and nursing notes reviewed Medical History Anemia Benign essential hypertension Bilateral lower extremity edema Diabetes mellitus History of malignant neoplasm of rectum Obesity (BMI 30-39.9) Otitis externa of left ear Pure hypercholesterolemia Vitamin D deficiency Surgical History History of colon resection (~08/23/04) Family History Family History Father Medical history unknown Mother Hypertension Stroke Diabetes Cancer Social History Social History Housing: Apartment Alcohol intake: never Patient Tobacco Use Status: Former Tobacco user Smoked in Last 30 Days: No e-Cigarette/Vaping Use: Never Used Second Hand Smoke Exposure: Yes Use of substances other than those prescribed or required for medical reasons: No Advance Directives: No Advance Directives Information Provided: No service: No Current occupational status: retired Cognitive needs: No Hearing needs: No Vision needs: Yes (glasses) Physical Exam ED Vital Signs: Vital Signs - 24 hr 12/10/22 16:15 Temperature 96.6 F L Pulse Rate 101 H Respiratory Rate 20 Blood Pressure 137/65 BMI result Body Mass Index 30.8 vss Appearance: Alert.? Oriented X3.? No acute distress.? Head: Normocephalic, atraumatic, no step-offs or deformities Eyes: Pupils equal, round and reactive to light.? ENT: Pharynx normal.? Neck: Normal inspection.? Neck supple.? CVS: Normal heart rate and rhythm.? Pulses normal.? Respiratory: No respiratory distress.? Breath sounds diminished bilaterally.? Abdomen: Soft and nontender.? Skin: Skin warm and dry.? Normal skin color.? Normal skin turgor.? Extremities: No lower extremity edema.? No calf ttp. 5/5 strength to bilateral upper and lower extremities Neuro: Oriented X 3.? No motor deficit.? No sensory deficit. CN 2-12 intact . Normal [id number], [id number]. Ambulatory with steady tandem gait normal coordination. Course Reevaluation(s) Reevaluation #1: CBC with normocytic anemia, appears to be around patient's baseline. Chemistry with no acute findings requiring intervention. Patient's total bilirubin 1.6 however no tenderness to palpation of abdomen a right upper quadrant, likely secondary to viral illness. Troponin negative, EKG without evidence of acute ischemia. Patient with sinus tachycardia. He does not have chest pain or shortness of breath at this time. He tells me he does has a dry cough. COVID and influenza negative. Head CT is no acute intracranial abnormality. Partial opacification of the left mastoid air cells inferiorly which could represent mastoiditis however patient has no mastoid tenderness therefore low suspicion. No cervical spine fractures or traumatic subluxations. Chest x-ray unremarkable. Will to treat for bacterial bronchitis. Time: 20:46 Medications Administered Discontinued Medications Generic Name Dose Route Start Last Admin Trade Name Ralph PRN Reason Stop Dose Admin Sodium Chloride 1,000 mls @ 999 mls/hr 12/10/22 18:15 12/10/22 19:09 Ns IV 12/10/22 19:15 999 mls/hr .Q1H1M JANICE Administration Medical Decision Making Medical Decision Making [facility] Narrative: 1800 66-year-old male presents with fatigue, malaise, productive cough, chills, near syncopal episode prior to arrival Physical examination with diminished breath sounds bilaterally. Regular rate and rhythm. Abdomen soft nontender nondistended. Neuro nonfocal. Cerebellar intact. NIH stroke scale 0. Concerns for viral illness. Will rule out pneumonia. Patient did not fall and hit her his head, neuro nonfocal unlikely intracranial hemorrhage, stroke, posterior stroke. No traumatic injuries to the chest, abdomen and pelvis sustained, low suspicion for fractures, dislocations or injuries to internal organs. No chest pain, sob or hypoxia unlikley PE. Plan at this time labs, chest x-ray, COVID and flu testing, troponin, EKG, orthostatic vital signs. Differential Diagnosis Differential Diagnoses: The differential diagnosis associated with the presentation includes Concerns for viral illness. Will rule out pneumonia. Patient did not fall and hit her his head, neuro nonfocal unlikely intracranial hemorrhage, stroke, posterior stroke. No traumatic injuries to the chest, abdomen and pelvis sustained, low suspicion for fractures, dislocations or injuries to internal organs. No chest pain, sob or hypoxia unlikley PE. Admission/Observation Consideration of admission/observation: Escalation of care including admission/observation considered Lab Data [facility] Lab Attestation statement: I reviewed the patient's lab results. 12/10/22 19:34 12/10/22 19:34 Labs: Lab Results 12/10/22 12/10/22 12/10/22 Range/Units 19:34 19:34 19:34 WBC 10.4 (4.8-10.8) X10*3/uL RBC 4.32 L (4.60-5.80) X10*6/uL Hgb 13.5 L (14.0-18.0) g/dl Hct 41.1 L (42.0-52.0) % MCV 95.1 (80.0-98.0) fL MCH 31.3 (27.0-33.0) pg MCHC 32.8 (31.0-36.0) g/dl RDW 13.2 (11.0-16.0) % Plt Count 209 D (160-400) X10*3/uL MPV 9.4 (9.4-12.4) fL Immature Gran % (Auto) 0.3 (0.0-0.4) % Neut % (Auto) 73.5 H (45-73) % Lymph % (Auto) 10.7 L (20-40) % [place] % (Auto) 14.8 H (2-11) % Eos % (Auto) 0.3 (0-4) % Baso % (Auto) 0.4 (0-2) % Lymph # (Auto) 1.1 L (1.2-4.9) X10*3/uL [place] # (Auto) 1.5 H (0.1-1.2) X10*3/uL Eos # (Auto) 0.0 (0.0-0.4) X10*3/uL Baso # (Auto) 0.0 (0.0-0.2) X10*3/uL Abs Immat Gran (auto) 0.03 (0.00-0.03) X10*3/uL Absolute Neuts (auto) 7.7 (2.0-8.3) x10*3/uL Absolute Nucleated RBC 0.000 (0.0-0.012) X10*3/uL Nucleated RBC % (auto) 0.0 (0.0-0.2) /100WBC Smear Tech's Comments VERIFIED Sodium 139 (135-145) mmol/L Potassium 4.3 (3.3-5.1) mmol/L Chloride 103 (96-108) mmol/L Carbon Dioxide 26 (22-29) mmol/L Anion Gap 14 (12-20) BUN 12 (9-16) mg/dL Creatinine 0.77 (0.5-1.4) mg/dL Estim Creat Clear Calc 120.6 Estimated GFR > 60 Random Glucose 135 H (60-115) mg/dL Calcium 8.8 D (8.4-10.2) mg/dL Magnesium 1.6 (1.6-2.6) mg/dL Total Bilirubin 1.6 H (0.0-1.0) mg/dL AST 16 (5-37) U/L ALT 12 (0-40) U/L Alkaline Phosphatase 88 (39-117) U/L Troponin I High Sens 4.7 (<3.5-35.0) ng/L Total Protein 6.5 (6.5-8.0) g/dL Albumin 4.0 (3.5-5.0) g/dL COVID-19 (JYOTI) (Negative) COVID-19 Clin Com Influenza Type A (LIZ) (Negative) Influenza Type B (LIZ) (Negative) Influenza A & B Note 12/10/22 12/10/22 Range/Units 19:34 19:34 WBC (4.8-10.8) X10*3/uL RBC (4.60-5.80) X10*6/uL Hgb (14.0-18.0) g/dl Hct (42.0-52.0) % MCV (80.0-98.0) fL MCH (27.0-33.0) pg MCHC (31.0-36.0) g/dl RDW (11.0-16.0) % Plt Count (160-400) X10*3/uL MPV (9.4-12.4) fL Immature Gran % (Auto) (0.0-0.4) % Neut % (Auto) (45-73) % Lymph % (Auto) (20-40) % [place] % (Auto) (2-11) % Eos % (Auto) (0-4) % Baso % (Auto) (0-2) % Lymph # (Auto) (1.2-4.9) X10*3/uL [place] # (Auto) (0.1-1.2) X10*3/uL Eos # (Auto) (0.0-0.4) X10*3/uL Baso # (Auto) (0.0-0.2) X10*3/uL Abs Immat Gran (auto) (0.00-0.03) X10*3/uL Absolute Neuts (auto) (2.0-8.3) x10*3/uL Absolute Nucleated RBC (0.0-0.012) X10*3/uL Nucleated RBC % (auto) (0.0-0.2) /100WBC Smear Tech's Comments Sodium (135-145) mmol/L Potassium (3.3-5.1) mmol/L Chloride (96-108) mmol/L Carbon Dioxide (22-29) mmol/L Anion Gap (12-20) BUN (9-16) mg/dL Creatinine (0.5-1.4) mg/dL Estim Creat Clear Calc Estimated GFR Random Glucose (60-115) mg/dL Calcium (8.4-10.2) mg/dL Magnesium (1.6-2.6) mg/dL Total Bilirubin (0.0-1.0) mg/dL AST (5-37) U/L ALT (0-40) U/L Alkaline Phosphatase (39-117) U/L Troponin I High Sens (<3.5-35.0) ng/L Total Protein (6.5-8.0) g/dL Albumin (3.5-5.0) g/dL COVID-19 (JYOTI) Negative (Negative) COVID-19 Clin Com See Note Influenza Type A (LIZ) Negative (Negative) Influenza Type B (LIZ) Negative (Negative) Influenza A & B Note See Note Core Measures AMI core measures followed: Yes Measure exclusions: not indicated Critical Care Time Critical Care Time Critical Care Time: No Discharge Plan Discharge Clinical Impression: Bronchitis, Near syncope Patient Disposition: Home, Self-Care Instructions: Acute Bronchitis (ED), Near Syncope (ED) Additional Instructions: Take your medications as prescribed. If you were prescribed antibiotics today, it is important that you take your medication to their entirety, do not skip any doses, do not finish them early. Follow-up with your primary care provider this week. Return to the emergency department with new or worsening symptoms. Such as fevers, chills, chest pain, shortness of breath, nausea, vomiting, dizziness, headache, vision changes, lethargy In case of emergency call 911 Please drink plenty of fluids. If you develop a fever you can take ibuprofen every 6 hours, Tylenol every 4 as needed for fevers, chills, pain or discomfort. Take antibiotics as prescribed. Also use inhaler as indicated. XR/XR chest 1V IMPRESSION: Unremarkable examination. ? CT/CT cervical spine & head wo IV con IMPRESSION: 1.? No acute intracranial abnormality. Partial opacification of the left mastoid air cells inferiorly. Could represent mastoiditis. 2.? No cervical spine fracture or traumatic subluxation. Prescriptions: New doxycycline hyclate 100 mg capsule 100 mg PO BID 10 Days Qty: 20 0RF albuterol sulfate 90 mcg/actuation aerosol powdr breath activated 2 inh inhalation Q4-6H PRN (Reason: shortness of breath or wheezing) Qty: 1 0RF benzonatate 100 mg capsule 100 mg PO BID PRN (Reason: cough) Qty: 20 0RF No Action pen needle, diabetic [BD Ultra-Fine Racquel Pen Needle] 32 gauge x 5/32 needle 1 ea subcut DAILY Qty: 30 12RF atorvastatin 20 mg tablet 20 mg PO BEDTIME 90 Days Qty: 90 3RF pioglitazone 30 mg tablet 30 mg PO DAILY 90 Days Qty: 90 3RF lisinopril 10 mg tablet 10 mg PO DAILY 90 Days Qty: 90 3RF cholecalciferol (vitamin D3) 50 mcg (2,000 unit) capsule 50 mcg PO DAILY Kelly Kelly U-300 Insulin 300 unit/mL (1.5 mL) insulin pen 35 unit subcut DAILY 90 Days Qty: 10.503 5RF metformin 1,000 mg tablet 1,000 mg PO BID 90 Days Qty: 180 3RF Trulicity 0.75 mg/0.5 mL pen injector 0.75 mg subcut QWEEK 28 Days Qty: 2 3RF Referrals: Nakul Torres MD [Primary Care Provider] - 2 days ED Physician,[facility] [Physician] - 2 days
[2022-12-10] MEDS: 0.9 % Sodium Chloride 1,000 ML 999 ML IV (19:09)
--- NOTE | 2022-12-10 19:12 | PC.NURSE ---
Patient calm and cooperative resting on stretcher. IV inserted to right hand and fluids started. Awaiting CT results at this time.
[2022-12-10 19:41] LABS: Basophils Percent Auto 0.4 % (0-2); Eosinophils Percent Auto 0.3 % (0-4); Hematocrit 41.1 % (42.0-52.0); Hemoglobin 13.5 g/dl (14.0-18.0); Imm Gran Abs Auto 0.03 X10*3/uL (0.00-0.03); Imm Gran Pct Auto 0.3 % (0.0-0.4); Lymphocytes Absolute Auto 1.1 X10*3/uL (1.2-4.9); Lymphocytes Percent Auto 10.7 % (20-40); MANUAL DIFF FLAG SCAN; Mean Corpuscular HGB Conc 32.8 g/dl (31.0-36.0); Mean Corpuscular Hemoglobin 31.3 pg (27.0-33.0); Mean Corpuscular Volume 95.1 fL (80.0-98.0); Mean Platelet Volume 9.4 fL (9.4-12.4); Monocytes Absolute Auto 1.5 X10*3/uL (0.1-1.2); Monocytes Percent Auto 14.8 % (2-11); Neutrophils Absolute Auto 7.7 x10*3/uL (2.0-8.3); Neutrophils Percent Auto 73.5 % (45-73); Platelet Count 209 X10*3/uL (160-400); Red Blood Count 4.32 X10*6/uL (4.60-5.80); Red Cell Distribution Width 13.2 % (11.0-16.0); SCAN SMEAR FLAG 1; White Blood Count 10.4 X10*3/uL (4.8-10.8)
[2022-12-10 20:01] LABS: COVID-19 Test Negative (Negative); IDNOW Serial# 08D9AD1C
[2022-12-10 20:02] LABS: IDNOW Serial# BCCEAD1C; Influenza A Negative (Negative); Influenza B2 Negative (Negative)
[2022-12-10 20:09] LABS: Alanine Aminotransferase 12 U/L (0-40); Alkaline Phosphatase 88 U/L (39-117); Anion Gap 14 (12-20); Aspartate Amino Transferase 16 U/L (5-37); Bilirubin Total 1.6 mg/dL (0.0-1.0); Blood Urea Nitrogen 12 mg/dL (9-16); Calcium 8.8 mg/dL (8.4-10.2); Carbon Dioxide 26 mmol/L (22-29); Chloride 103 mmol/L (96-108); Creatinine Clr Calc Pharmacy 120.6; Estimated Glomerular Filt Rate > 60; Glucose Random 135 mg/dL (60-115); Magnesium 1.6 mg/dL (1.6-2.6); Potassium 4.3 mmol/L (3.3-5.1); SLIDE REVIEW VERIFIED; Sodium 139 mmol/L (135-145); Total Protein 6.5 g/dL (6.5-8.0)
[2022-12-10 20:18] LABS: Troponin-I High Sensitivity 4.7 ng/L (<3.5-35.0)
== END 2022-12-10 21:24 | disposition home or self-care (01) ==
PROVIDERS: Physician Assistant; Emergency Provider Internal Medicine; PCP Internal Medicine
DX: R55 Syncope and collapse (principal); J40 Bronchitis, not specified as acute or chronic; M54.2 Cervicalgia; R51.9 Headache, unspecified; Z87.891 Personal history of nicotine dependence; Z20.822 Contact with and (suspected) exposure to COVID-19; Z20.828 Contact with and (suspected) exposure to other viral communicable diseases; Z79.899 Other long term (current) drug therapy
CPT/HCPCS: 70450; 71045; 72125; 80053; 83735; 84484; 85025; 87502; 87635; 93005; 99285

== ENCOUNTER 2023-01-06 07:07 | Outpatient (REF) | payer MEDICARE, SELFPAY ==
[2023-01-06 07:31] LABS: MANUAL DIFF FLAG NO
[2023-01-06 07:43] LABS: Basophils Percent Auto 0.6 % (0-2); Eosinophils Absolute Auto 0.2 X10*3/uL (0.0-0.4); Eosinophils Percent Auto 2.3 % (0-4); Hematocrit 42.4 % (42.0-52.0); Hemoglobin 13.9 g/dl (14.0-18.0); Imm Gran Abs Auto 0.02 X10*3/uL (0.00-0.03); Imm Gran Pct Auto 0.3 % (0.0-0.4); Lymphocytes Absolute Auto 1.6 X10*3/uL (1.2-4.9); Lymphocytes Percent Auto 23.6 % (20-40); Mean Corpuscular HGB Conc 32.8 g/dl (31.0-36.0); Mean Corpuscular Hemoglobin 31.7 pg (27.0-33.0); Mean Corpuscular Volume 96.6 fL (80.0-98.0); Mean Platelet Volume 9.7 fL (9.4-12.4); Monocytes Absolute Auto 0.7 X10*3/uL (0.1-1.2); Monocytes Percent Auto 10.5 % (2-11); Neutrophils Absolute Auto 4.2 x10*3/uL (2.0-8.3); Neutrophils Percent Auto 62.7 % (45-73); Platelet Count 268 X10*3/uL (160-400); Red Blood Count 4.39 X10*6/uL (4.60-5.80); Red Cell Distribution Width 13.2 % (11.0-16.0); White Blood Count 6.7 X10*3/uL (4.8-10.8)
[2023-01-06 07:50] LABS: Estimated Average Glucose 148 mg/dL; Hemoglobin A1c % 6.8 %
[2023-01-06 08:10] LABS: Alanine Aminotransferase 15 U/L (0-40); Albumin Level 4.3 g/dL (3.5-5.0); Alkaline Phosphatase 77 U/L (39-117); Anion Gap 14 (12-20); Aspartate Amino Transferase 16 U/L (5-37); Bilirubin Total 0.7 mg/dL (0.0-1.0); Blood Urea Nitrogen 14 mg/dL (9-16); Calcium 9.3 mg/dL (8.4-10.2); Carbon Dioxide 28 mmol/L (22-29); Chloride 105 mmol/L (96-108); Cholesterol 131 mg/dL; Estimated Glomerular Filt Rate > 60; Glucose Fasting 107 mg/dL (60-99); HDL Cholesterol 39 mg/dL; LDL Cholesterol Calculated 81 mg/dl; Potassium 4.3 mmol/L (3.3-5.1); Sodium 143 mmol/L (135-145); Total Protein 6.9 g/dL (6.5-8.0); Triglycerides 57 mg/dL
[2023-01-06 08:29] LABS: TSH reflex Free T4 1.74 uIU/mL (0.32-4.0); Vitamin D 25-OH Total 62.8 ng/mL (>30)
[2023-01-06 08:39] LABS: Appearance Urine Clear; Color Urine Dark Yellow; Glucose Urine UA 500 mg/dL (Negative); Leukocyte Esterase Urine Negative (Negative); Nitrite Urine Negative (Negative); PH 5.5 (5.0-9.0); Urine Blood Negative (Negative); Urine Ketones Negative (Negative); Urine Protein Negative (Neg-Trace)
[2023-01-06 08:56] LABS: Creatinine Urine 120.38 mg/dL; Microalbum/Creatinine Ratio Ur 7.4 ug/mg cr
== END 2023-01-06 07:08 | disposition home or self-care (01) ==
LOC: HO.LAB 07:07
PROVIDERS: PCP Internal Medicine; Visit Provider Internal Medicine
DX: I10 Essential (primary) hypertension (principal); E11.9 Type 2 diabetes mellitus without complications; R30.0 Dysuria; E78.00 Pure hypercholesterolemia, unspecified; E55.9 Vitamin D deficiency, unspecified
CPT/HCPCS: 36415; 80053; 80061; 81003; 82043; 82306; 83036; 84443; 85025

== ENCOUNTER 2023-03-07 09:15 | Outpatient (REF) | payer MEDICARE, SELFPAY ==
--- NOTE | 2023-03-07 09:20 | EMG_ITS ---
Please see scanned EMG / Nerve Conduction Report. MTDD
== END 2023-03-07 09:16 | disposition home or self-care (01) ==
LOC: HO.NEURO 09:15
PROVIDERS: PCP Internal Medicine; Visit Provider Internal Medicine
DX: R26.81 Unsteadiness on feet (principal); E11.43 Type 2 diabetes mellitus with diabetic autonomic (poly)neuropathy
CPT/HCPCS: 95885; 95911

== ENCOUNTER 2023-04-23 06:40 | Outpatient (REF) | payer MEDICARE, SELFPAY ==
[2023-04-23 06:55] LABS: MANUAL DIFF FLAG NO
[2023-04-23 07:12] LABS: Basophils Absolute Auto 0.1 X10*3/uL (0.0-0.2); Basophils Percent Auto 0.7 % (0-2); Eosinophils Absolute Auto 0.1 X10*3/uL (0.0-0.4); Eosinophils Percent Auto 1.7 % (0-4); Hematocrit 42.7 % (42.0-52.0); Hemoglobin 13.9 g/dl (14.0-18.0); Imm Gran Abs Auto 0.04 X10*3/uL (0.00-0.03); Imm Gran Pct Auto 0.5 % (0.0-0.4); Lymphocytes Absolute Auto 1.7 X10*3/uL (1.2-4.9); Lymphocytes Percent Auto 22.3 % (20-40); Mean Corpuscular HGB Conc 32.6 g/dl (31.0-36.0); Mean Corpuscular Hemoglobin 31.7 pg (27.0-33.0); Mean Corpuscular Volume 97.5 fL (80.0-98.0); Mean Platelet Volume 9.6 fL (9.4-12.4); Monocytes Absolute Auto 0.7 X10*3/uL (0.1-1.2); Monocytes Percent Auto 9.6 % (2-11); Neutrophils Absolute Auto 4.9 x10*3/uL (2.0-8.3); Neutrophils Percent Auto 65.2 % (45-73); Platelet Count 246 X10*3/uL (160-400); Red Blood Count 4.38 X10*6/uL (4.60-5.80); Red Cell Distribution Width 13.1 % (11.0-16.0); White Blood Count 7.6 X10*3/uL (4.8-10.8)
[2023-04-23 07:25] LABS: Estimated Average Glucose 151 mg/dL; Hemoglobin A1c % 6.9 %
[2023-04-23 07:51] LABS: Alanine Aminotransferase 16 U/L (0-40); Albumin Level 4.2 g/dL (3.5-5.0); Alkaline Phosphatase 78 U/L (39-117); Anion Gap 16 (12-20); Aspartate Amino Transferase 15 U/L (5-37); Bilirubin Total 0.6 mg/dL (0.0-1.0); Blood Urea Nitrogen 18 mg/dL (9-16); Calcium 9.6 mg/dL (8.4-10.2); Carbon Dioxide 26 mmol/L (22-29); Chloride 103 mmol/L (96-108); Cholesterol 136 mg/dL; Estimated Glomerular Filt Rate > 60; Glucose Fasting 114 mg/dL (60-99); HDL Cholesterol 41 mg/dL; LDL Cholesterol Calculated 76 mg/dl; Potassium 4.5 mmol/L (3.3-5.1); Sodium 140 mmol/L (135-145); Total Protein 7.3 g/dL (6.5-8.0); Triglycerides 96 mg/dL
[2023-04-23 08:10] LABS: Vitamin D 25-OH Total 60.8 ng/mL (>30)
[2023-04-23 09:18] LABS: Appearance Urine Clear; Color Urine Yellow; Glucose Urine UA Negative (Negative); Leukocyte Esterase Urine Negative (Negative); Nitrite Urine Negative (Negative); Urine Blood Negative (Negative); Urine Ketones Negative (Negative); Urine Protein Negative (Neg-Trace)
[2023-04-23 09:40] LABS: Creatinine Urine 41.28 mg/dL; Microalbumin Urine < 5.0 mg/L
== END 2023-04-23 06:41 | disposition home or self-care (01) ==
LOC: HO.LAB 06:40
PROVIDERS: PCP Internal Medicine; Visit Provider Internal Medicine
DX: I10 Essential (primary) hypertension (principal); E78.00 Pure hypercholesterolemia, unspecified; E55.9 Vitamin D deficiency, unspecified; E11.9 Type 2 diabetes mellitus without complications; R30.0 Dysuria
CPT/HCPCS: 36415; 80053; 80061; 81003; 82043; 82306; 83036; 84443; 85025

== ENCOUNTER 2023-04-25 08:46 | Outpatient (AMB) | payer MEDICARE, SELFPAY ==
[2023-04-25 08:53] VITALS: BP 138/76; PULSE 108; O2SAT 93; BMI 34.1
--- NOTE | 2023-04-25 08:53 | A.OFFPC_ITS ---
Vital Signs 04/25/23 08:53 Height 6 ft 2 in Weight 266 lb BMI 34.1 BP 138/76 Blood Pressure Location Lt brachial Position Sitting Pulse 108 H Pulse Source Pulse Oximeter Pulse Oximetry (%) 93 Oxygen Delivery Method Room Air Intake Visit Reasons: DM, hyperlipidemia, HTN Tamping Machine Operator Required: No Accompanied by: Self / Same As Patient Allergies dulaglutide [Trulicity] Adverse Reaction (Intermediate, Verified 04/25/23 09:10) abdominal pain Medication List - Last Reconciled 04/25/23 by Nakul Torres MD albuterol sulfate 90 mcg/actuation 2 inhalations inhalation Q4-6H PRN atorvastatin 20 mg PO BEDTIME 90 days cholecalciferol (vitamin D3) 50 mcg PO DAILY insulin glargine U-300 conc (Toujeo SoloStar U-300 Insulin) 35 units (0.1167 mL) subcut DAILY lisinopril 10 mg PO DAILY 90 days metformin 1,000 mg PO BID 90 days pen needle, diabetic (BD Ultra-Fine [place] Pen Needle) 1 ea subcut DAILY pioglitazone 30 mg PO DAILY 90 days Trulicity (dulaglutide) 0.75 mg (0.5 mL) subcut QWEEK 4 weeks NS Tobacco use date assessed: 04/25/23 Fall risk assessment: No Falls in past year Last assessed Fall Risk: 04/25/23 Dental Screening Dental Screen Date: 04/25/23 Did you have a dental visit in the last 12 months?: No Did you have a dental problem in the last 6 months where you did not have access to dental care?: No Was dental information given to patient?: No HPI DM, hyperlipidemia, HTN HPI Details Patient comes in today for his follow up visit States that he feels okay He denies any headaches or dizziness Denies any chest pains, no SOB No nausea/vomiting, no abdominal pain No change in bowel habits noted Needs a couple of his Rx refilled Had his follow up labs done a couple of days ago - to discuss his results Adds that he had his annual eye exam back in December 2022 Would also like to know how he did on his NCV & EMG done a couple of months ago [facility] Medical History Anemia Benign essential hypertension Bilateral lower extremity edema Diabetes mellitus History of malignant neoplasm of rectum Obesity (BMI 30-39.9) Otitis externa of left ear Pure hypercholesterolemia Vitamin D deficiency Surgical History History of colon resection (~08/23/04) Family History Father Medical history unknown Mother Hypertension Stroke Diabetes Cancer Social History Housing: Apartment Alcohol intake: never Patient Tobacco Use Status: Former Tobacco user e-Cigarette/Vaping Use: Never Used Second Hand Smoke Exposure: Yes service: No Current occupational status: retired Cognitive needs: No Hearing needs: No Vision needs: Yes (glasses) Questionnaire PHQ-9 Over the last 2 weeks, how often have you been bothered by any of the following problems? 1. Little interest or pleasure in doing things: not at all 2. Feeling down, depressed, or hopeless: not at all 3. Trouble falling or staying asleep, or sleeping too much: not at all 4. Feeling tired or having little energy: not at all 5. Poor appetite or overeating: not at all 6. Feeling bad about yourself - or that you are a failure or have let yourself or your family down: not at all 7. Trouble concentrating on things, such as reading the newspaper or watching television: not at all 8. Moving or speaking so slowly that other people could have noticed. Or the opposite - being so fidgety or restless that you have been moving around a lot more than usual: not at all 9. Thoughts that you would be better off or of hurting yourself in some way: not at all Total score: 0 Depression Screening Interpretation: Negative [id number] - PHQ-9 Billing: Yes Source: Developed by Drs. Henry Beebe, Lanette Intreiano, Nikunj Clifton and colleagues, with an educational pablo from [employer]. Thrive Questionnaire Date Thrive assessed: 04/25/23 I am a: Patient What is your living situation today?: I have a steady place to live Within the past 12 months, did the food you bought not last and you didn't have the money to get more?: Never true Within the past 12 months, did you worry whether your food would run out before you got money to buy more?: Never true Do you have trouble paying for medicines?: No Do you have trouble getting transportation to medical appointments?: No Do you have trouble paying your heating and electricity bill?: No Do you have trouble taking care of your child, family member or friend?: No Do you have trouble with day-to-day activities such as bathing, preparing meals, shopping, managing finances, etc.?: No Are you currently unemployed and looking for a job?: No Are you interested in more education?: No Please select the resources that you would like help with: None Currently or been in a relationship where the following occur: no concerns reported AUDIT C Alcohol Use Questionnaire (AUDIT-C) 1. How often do you have a drink containing alcohol?: Never 3. How often do you have six or more drinks on one occasion?: Never Total Score: 0 Score Reviewed/Action Taken: Yes NAYAN-7 AMB Questionnaire NAYAN-7 Date NAYAN - 7 assessed: 04/25/23 Feeling nervous, anxious, or on edge: 0 = Not at all Not being able to stop or control worryin = Not at all Worrying too much about different things: 0 = Not at all Trouble relaxin = Not at all Being so restless that it is hard to sit still: 0 = Not at all Becoming easily annoyed or irritable: 0 = Not at all Feeling afraid as if something awful might happen: 0 = Not at all Total NAYAN-7 score (0-4 normal; 5-9 mild; 10-14 moderate; 15-21 severe): 0 Source: Developed by Drs. Henry Beebe, Lanette Interiano, Nikunj Clifton and colleagues, with an educational pablo from [employer]. Review of Systems Const Denies fatigue, Denies fever(s) and Denies headache(s) ENT Denies dysphagia, Denies dizziness, Denies otalgia, Denies headache(s), Denies odynophagia and Denies sore throat Card Denies chest pain, Denies palpitations and Denies dyspnea Resp Denies cough and Denies dyspnea GI Denies abdominal pain, Denies constipation, Denies dysphagia, Denies heartburn, Denies diarrhea, Denies nausea, Denies odynophagia and Denies vomiting Denies dysuria, Denies nocturia and Denies urinary frequency Musc Reports numbness (on and off over both lower legs and feet) Neuro Reports burning sensations (over both feet, especially on the bottom), Denies dizziness, Denies headache(s) and Reports numbness (on and off over both lower legs and feet) Endo Denies fatigue and Denies palpitations Physical exam (Primary Care) Vital Signs: Last Vital Signs Pulse 108 H 04/25/23 08:53 BP 138/76 04/25/23 08:53 Pulse Ox 93 04/25/23 08:53 Oxygen Delivery Method Room Air 04/25/23 08:53 BMI result Body Mass Index 34.1 Tobacco/Smoking Status: Tobacco use Status Tobacco use date assessed 04/25/23 04/25/23 08:58 Patient Tobacco Use Status Former Tobacco user 04/25/23 08:58 e-Cigarette/Vaping Use Never Used 04/25/23 08:58 PHQ-9: PHQ-9 Score PHQ-9: Total score 0 04/25/23 08:58 Depression Screening Interpretation: Negative Thrive Assessment: Date of Thrive Assessment Date Thrive assessed 04/25/23 04/25/23 08:58 Currently or been in a relationship where the following occur: no concerns reported Const General: no acute distress and alert HENMT Ears: TM's normal bilaterally and EAC's normal Throat: Yes posterior oropharynx normal and Yes tonsils normal (no TP congestion noted) Neck Neck: Yes no lymphadenopathy and Yes supple Resp Auscultation: clear to auscultation bilaterally, no rales and no wheezes Cardio Rate: regular rate Rhythm: regular rhythm Heart sounds: no murmurs GI Palpation (GI): Soft to palpation and nontender Auscultation: normal bowel sounds Extrem General: Yes no clubbing, cyanosis or edema Results Reviewed Results Reviewed: Laboratory Tests 04/23/23 04/23/23 04/23/23 06:53 06:54 06:54 WBC 7.6 Hgb 13.9 L Hct 42.7 Plt Count 246 Sodium 140 Potassium 4.5 Creatinine 0.86 Estimated GFR > 60 Fasting Glucose 114 H Hemoglobin A1c % Calcium 9.6 AST 15 ALT 16 Triglycerides 96 Cholesterol 136 LDL Cholesterol, Calc 76 HDL Cholesterol 41 25-OH Vitamin D Total 60.8 TSH 2.80 Ur Specific [place] 1.010 Urine Protein Negative Urine Glucose (UA) Negative Urine Blood Negative 04/23/23 06:54 WBC Hgb Hct Plt Count Sodium Potassium Creatinine Estimated GFR Fasting Glucose Hemoglobin A1c % 6.9 Calcium AST ALT Triglycerides Cholesterol LDL Cholesterol, Calc HDL Cholesterol 25-OH Vitamin D Total TSH Ur Specific [place] Urine Protein Urine Glucose (UA) Urine Blood Assessment and Plan Assessment & Plan (1) Diabetes mellitus: Code(s): E11.9 - Type 2 diabetes mellitus without complications Qualifiers: Diabetes mellitus type: type 2 Diabetes mellitus detention insulin use: without remote computer terminal operator use Diabetes mellitus complication status: without complication Qualified Code(s): E11.9 - Type 2 diabetes mellitus without complications Plan: HgbA1c is at 6.9% on his labs done a couple of days ago (was at 6.8% a few months ago) - goal is <7.0% Reinforced diabetic diet Continue Pioglitazone 30 mg QD, Metformin 1000 mg BID, Toujeo Solostar 300 units/ml 35 units SQ QD and Trulicity 0.75 mg once a week He has been referred to endocrinology for further evaluation and management a couple of times over the past 2 years (referral was also renewed at his last visit) but he has yet to be scheduled for an appointment (2) Benign essential hypertension: Code(s): I10 - Essential (primary) hypertension Plan: Reinforced low sodium diet - goal is systolic BP of at least 130 to 140 mm or less Continue Lisinopril 10 mg QD Patient again prefers not to have his BP med dosage raised as he recalls feeling very dizzy and lightheaded frequently a few years ago when he was on 20 mg of Lisinopril - his dosage had to be cut back all the way to 5 mg daily at the time (3) Pure hypercholesterolemia: Code(s): E78.00 - Pure hypercholesterolemia, unspecified Plan: Results of his labs done a couple of days ago reviewed and discussed with patient Reinforced low cholesterol diet Continue Atorvastatin 20 mg QD Will recheck his labs in 4 months for follow up (4) Anemia: Code(s): D64.9 - Anemia, unspecified Qualifiers: Anemia type: unspecified type Qualified Code(s): D64.9 - Anemia, unspecified Plan: Corrected - will continue to monitor CBC regularly (5) Vitamin D deficiency: Code(s): E55.9 - Vitamin D deficiency, unspecified Plan: Corrected and his Vitamin D level has remained normal on his recent labs - continue Vitamin D3 2000 units QD (6) Bilateral lower extremity edema: Code(s): R60.0 - Localized edema Plan: Most likely stasis edema; patient encouraged again to elevate his legs and feet as often as he can throughout the day Advised that wearing compression/support stockings may help Patient advised to call if this gets significantly worse at any time - may need to check echocardiogram and reevaluate his renal function then (7) Diabetic autonomic neuropathy: Code(s): E11.43 - Type 2 diabetes mellitus with diabetic autonomic (poly)neuropathy Qualifiers: Diabetes mellitus type: type 2 Qualified Code(s): E11.43 - Type 2 diabetes mellitus with diabetic autonomic (poly)neuropathy Plan: EMG and NCV done back on 03/07/2023 revealed (+) moderately severe axonal sensory greater than motor peripheral neuropathy in the lower extremities bilaterally. EMG of the right L4-S1 innervated muscles are consistent with distal chronic neuropathic changes of neuropathy Have again advised patient that neuropathy is due to nerve damage and that other than Rx to help control/manage the symptoms, there is nothing we can give or prescribe to help treat or cure the condition Reminded again that the only thing we can do to control this is tight control of his blood sugar to minimize or halt the progression of this condition Patient states that his symptoms are mostly tolerable and do not really bother him too much and he prefers not to take any more medications at this time; states that he will call if his symptoms get significantly worse (8) History of malignant neoplasm of rectum: Code(s): Z85.048 - Personal history of other malignant neoplasm of rectum, rectosigmoid junction, and anus Plan: Follow up with GI (Dr. Alvarez) as scheduled for continuing surveillance Had repeat colonoscopy on 11/22/2018 - colonoscopy came out normal ( had a polyp that came out as tubular adenoma on pathology ) and repeat colonoscopy will be in 5 years (2023) (9) Obesity (BMI 30-39.9): Code(s): E66.9 - Obesity, unspecified Plan: Reinforced diet/exercise as tolerated/lose weight Plan To return in 4 months for his annual physical examination Orders: Orders Comprehensive [place]. Panel Fast 4 Months E78.00 - Pure hypercholesterolemia, unspecified Lipid Panel 4 Months E78.00 - Pure hypercholesterolemia, unspecified TSH reflex Free T4 4 Months E78.00 - Pure hypercholesterolemia, unspecified Complete Blood Count Auto Diff 4 Months I10 - Essential (primary) hypertension UA CC w/rflx Micro + Cult 4 Months R30.0 - Dysuria Vitamin B12 and Folate 4 Months E53.8 - Deficiency of other specified B group vitamins Hemoglobin A1c 4 Months E11.9 - Type 2 diabetes mellitus without complications Vitamin D 25-OH Total 4 Months E55.9 - Vitamin D deficiency, unspecified Microalbumin, Random (w Creat) 4 Months E11.9 - Type 2 diabetes mellitus without complications Prostate Specific Antigen 4 Months N40.0 - Benign prostatic hyperplasia without lower urinary tract symptoms, Z00.00 - Encounter for general adult medical examination without abnormal findings Medications: Refilled pioglitazone 30 mg PO DAILY 90 days 90 tabs 3RF E11.9 - Type 2 diabetes mellitus without complications Trulicity (dulaglutide) 0.75 mg (0.5 mL) subcut QWEEK 4 weeks 2 mL 3RF NS Coding Level of Care Code Est Pt Level 4 (59423) Diagnoses Diabetes mellitus E11.9 Diabetes mellitus type: type 2 Diabetes mellitus detention insulin use: without detention use Diabetes mellitus complication status: without complication Benign essential hypertension I10 Pure hypercholesterolemia E78.00 Anemia D64.9 Anemia type: unspecified type Vitamin D deficiency E55.9 Bilateral lower extremity edema R60.0 Diabetic autonomic neuropathy E11.43 Diabetes mellitus type: type 2 History of malignant neoplasm of rectum Z85.048 Obesity (BMI 30-39.9) E66.9
== END 2023-04-25 09:28 | disposition home or self-care (01) ==
PROVIDERS: PCP Internal Medicine; Visit Provider Internal Medicine
DX: E11.43 Type 2 diabetes mellitus with diabetic autonomic (poly)neuropathy (principal); I10 Essential (primary) hypertension; E78.00 Pure hypercholesterolemia, unspecified; D64.9 Anemia, unspecified; E55.9 Vitamin D deficiency, unspecified; R60.0 Localized edema; Z85.048 Personal history of other malignant neoplasm of rectum, rectosigmoid junction, and anus; E66.9 Obesity, unspecified
CPT/HCPCS: 99214

== ENCOUNTER 2023-08-17 07:01 | Outpatient (REF) | payer MEDICARE, SELFPAY ==
[2023-08-17 07:22] LABS: MANUAL DIFF FLAG NO
[2023-08-17 07:43] LABS: Basophils Absolute Auto 0.1 X10*3/uL (0.0-0.2); Basophils Percent Auto 0.7 % (0-2); Eosinophils Absolute Auto 0.1 X10*3/uL (0.0-0.4); Eosinophils Percent Auto 1.6 % (0-4); Hematocrit 42.9 % (42.0-52.0); Hemoglobin 14.4 g/dl (14.0-18.0); Imm Gran Abs Auto 0.03 X10*3/uL (0.00-0.03); Imm Gran Pct Auto 0.4 % (0.0-0.4); Lymphocytes Absolute Auto 1.4 X10*3/uL (1.2-4.9); Lymphocytes Percent Auto 18.6 % (20-40); Mean Corpuscular HGB Conc 33.6 g/dl (31.0-36.0); Mean Corpuscular Hemoglobin 32.9 pg (27.0-33.0); Mean Corpuscular Volume 97.9 fL (80.0-98.0); Mean Platelet Volume 10.2 fL (9.4-12.4); Monocytes Absolute Auto 0.7 X10*3/uL (0.1-1.2); Monocytes Percent Auto 9.9 % (2-11); Neutrophils Percent Auto 68.8 % (45-73); Platelet Count 267 X10*3/uL (160-400); Red Blood Count 4.38 X10*6/uL (4.60-5.80); Red Cell Distribution Width 12.7 % (11.0-16.0); White Blood Count 7.3 X10*3/uL (4.8-10.8)
[2023-08-17 07:56] LABS: Estimated Average Glucose 154 mg/dL
[2023-08-17 08:03] LABS: Appearance Urine Clear; Color Urine Dark Yellow; Glucose Urine UA 100 mg/dL (Negative); Leukocyte Esterase Urine Negative (Negative); Nitrite Urine Negative (Negative); PH 5.5 (5.0-9.0); Urine Blood Negative (Negative); Urine Ketones Negative (Negative); Urine Protein Negative (Neg-Trace)
[2023-08-17 08:18] LABS: Alanine Aminotransferase 15 U/L (0-40); Albumin Level 4.4 g/dL (3.5-5.0); Alkaline Phosphatase 93 U/L (39-117); Anion Gap 13 (12-20); Aspartate Amino Transferase 18 U/L (5-37); Bilirubin Total 0.9 mg/dL (0.0-1.0); Blood Urea Nitrogen 18 mg/dL (9-16); Calcium 9.5 mg/dL (8.4-10.2); Carbon Dioxide 29 mmol/L (22-29); Chloride 102 mmol/L (96-108); Cholesterol 124 mg/dL (<200); Estimated Glomerular Filt Rate > 60; Glucose Fasting 170 mg/dL (60-99); HDL Cholesterol 37 mg/dL (>40); LDL Cholesterol Calculated 69 mg/dL (<100); Potassium 4.4 mmol/L (3.3-5.1); Sodium 140 mmol/L (135-145); Total Protein 7.5 g/dL (6.5-8.0); Triglycerides 92 mg/dL (<150)
[2023-08-17 08:27] LABS: Creatinine Urine 141.57 mg/dL; Microalbum/Creatinine Ratio Ur 7.7 ug/mg cr (<30)
[2023-08-17 08:43] LABS: Folate 15.7 ng/mL (> or = 4.0); Prostate Specific Antigen 0.68 ng/mL (<0.05-4.0); Vitamin B12 542 pg/mL (200-900)
== END 2023-08-17 07:02 | disposition home or self-care (01) ==
LOC: HO.LAB 07:01
PROVIDERS: PCP Internal Medicine; Visit Provider Internal Medicine
DX: Z00.00 Encounter for general adult medical examination without abnormal findings (principal); N40.0 Benign prostatic hyperplasia without lower urinary tract symptoms; E78.00 Pure hypercholesterolemia, unspecified; R30.0 Dysuria; E55.9 Vitamin D deficiency, unspecified; E53.8 Deficiency of other specified B group vitamins; E11.9 Type 2 diabetes mellitus without complications; I10 Essential (primary) hypertension; Z12.5 Encounter for screening for malignant neoplasm of prostate
CPT/HCPCS: 36415; 80053; 80061; 81003; 82043; 82306; 82570; 82607; 82746; 83036; 84153; 84443; 85025

== ENCOUNTER 2023-11-09 08:52 | Outpatient (AMB) | payer MEDICARE, SELFPAY ==
--- NOTE | 2023-11-09 09:03 | A.OFFPC_ITS ---
Vital Signs 11/09/23 09:04 11/09/23 09:27 Height 6 ft 2 in Weight 271 lb BMI 34.8 BP 176/82 H 150/86 H Blood Pressure Location Lt brachial Lt brachial Position Sitting Sitting Respiration 17 Pulse 110 H Pulse Source Pulse Oximeter Pulse Oximetry (%) 97 Oxygen Delivery Method Room Air Intake Visit Reasons: physical Intake Note: Patient is here today for a physical. 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 Accompanied by: Self / Same As Patient Allergies dulaglutide [Trulicity] Adverse Reaction (Intermediate, Verified 11/09/23 09:17) abdominal pain Medication List - Last Reconciled 11/09/23 by Nakul Torres MD albuterol sulfate 90 mcg/actuation 2 inhalations inhalation Q4-6H PRN atorvastatin 20 mg PO BEDTIME 90 days cholecalciferol (vitamin D3) 50 mcg PO DAILY insulin glargine U-300 conc (Toujeo SoloStar U-300 Insulin) 35 units (0.1167 mL) subcut DAILY lisinopril 10 mg PO DAILY 90 days metformin 1,000 mg PO BID 90 days pen needle, diabetic (BD Ultra-Fine Racquel Pen Needle) 1 ea subcut DAILY pioglitazone 30 mg PO DAILY 90 days Trulicity (dulaglutide) 0.75 mg (0.5 mL) subcut QWEEK 4 weeks NS Tobacco use date assessed: 11/09/23 Fall risk assessment: No Falls in past year Last assessed Fall Risk: 11/09/23 Dental Screening Dental Screen Date: 11/09/23 Did you have a dental visit in the last 12 months?: Yes Did you have a dental problem in the last 6 months where you did not have access to dental care?: No Was dental information given to patient?: Patient has dentist HPI physical HPI Details Patient comes in today for his annual physical examination States that he feels okay Denies any headaches or dizziness Denies any chest pains, no SOB No nausea/vomiting, no abdominal pain No change in bowel habits noted Denies any acute urinary symptoms Had his follow up labs done back in August 2023 - was originally scheduled for his physical exam in August 2023 but his appt ended up getting rescheduled He is scheduled to see Dr. Alvarez in February 2024 and will be scheduled then for his repeat colonoscopy [facility] Medical History Bilateral lower extremity edema Otitis externa of left ear Obesity (BMI 30-39.9) History of malignant neoplasm of rectum Vitamin D deficiency Anemia Pure hypercholesterolemia Benign essential hypertension Diabetes mellitus Surgical History (Updated 11/09/23 @ 09:34 by Nakul Torres MD) Hx of colonoscopy History of colon resection (~08/23/04) Family History Father Medical history unknown Mother Hypertension Stroke Diabetes Cancer Social History Housing: Apartment Alcohol intake: never Patient Tobacco Use Status: Former Tobacco user e-Cigarette/Vaping Use: Never Used Second Hand Smoke Exposure: Yes service: No Current occupational status: retired Cognitive needs: No Hearing needs: No Vision needs: Yes (glasses) Questionnaire PHQ-9 Over the last 2 weeks, how often have you been bothered by any of the following problems? 1. Little interest or pleasure in doing things: not at all 2. Feeling down, depressed, or hopeless: not at all 3. Trouble falling or staying asleep, or sleeping too much: not at all 4. Feeling tired or having little energy: not at all 5. Poor appetite or overeating: not at all 6. Feeling bad about yourself - or that you are a failure or have let yourself or your family down: not at all 7. Trouble concentrating on things, such as reading the newspaper or watching television: not at all 8. Moving or speaking so slowly that other people could have noticed. Or the opposite - being so fidgety or restless that you have been moving around a lot more than usual: not at all 9. Thoughts that you would be better off or of hurting yourself in some way: not at all Total score: 0 Depression Screening Interpretation: Negative Depression Screening Done: Yes 40381 - PHQ-9 Billing: Yes Source: Developed by Drs. Henry Beebe, Lanette Interiano, Nikunj Clifton and colleagues, with an educational pablo from [employer]. Thrive Questionnaire Date Thrive assessed: 11/09/23 I am a: Patient What is your living situation today?: I have a steady place to live Within the past 12 months, did the food you bought not last and you didn't have the money to get more?: Never true Within the past 12 months, did you worry whether your food would run out before you got money to buy more?: Never true Do you have trouble paying for medicines?: No Do you have trouble getting transportation to medical appointments?: No Do you have trouble paying your heating and electricity bill?: No Do you have trouble taking care of your child, family member or friend?: No Do you have trouble with day-to-day activities such as bathing, preparing meals, shopping, managing finances, etc.?: No Are you currently unemployed and looking for a job?: No Are you interested in more education?: No Please select the resources that you would like help with: None Currently or been in a relationship where the following occur: no concerns reported THRIVE Score: 0 AUDIT C Alcohol Use Questionnaire (AUDIT-C) 1. How often do you have a drink containing alcohol?: Never 3. How often do you have six or more drinks on one occasion?: Never Total Score: 0 Score Reviewed/Action Taken: Yes NAYAN-7 AMB Questionnaire NAYAN-7 Date NAYAN - 7 assessed: 11/09/23 Feeling nervous, anxious, or on edge: 0 = Not at all Not being able to stop or control worryin = Not at all Worrying too much about different things: 0 = Not at all Trouble relaxin = Not at all Being so restless that it is hard to sit still: 0 = Not at all Becoming easily annoyed or irritable: 0 = Not at all Feeling afraid as if something awful might happen: 0 = Not at all Total NAYAN-7 score (0-4 normal; 5-9 mild; 10-14 moderate; 15-21 severe): 0 Source: Developed by Drs. Henry Beebe, Lanette Interiano, Nikunj Clifton and colleagues, with an educational pablo from [employer]. NAYAN-7 Assessment Billing NAYAN-7 Assessment Tool: NAYAN-7 Assessment 20560 Review of Systems Const Denies chills, Reports difficulty sleeping (at times), Denies fatigue, Denies fever(s), Denies headache(s), Denies malaise and Denies weakness Eyes Denies blurry vision, Denies change in vision, Denies irritation and Denies itchy eyes ENT Denies dysphagia, Denies dizziness, Denies otalgia, Denies headache(s), Denies nasal congestion, Denies neck pain, Denies odynophagia and Denies sore throat Card Denies chest pain, Denies rapid heart rate, Denies irregular heart rhythm, Denies palpitations and Denies dyspnea Resp Denies chest congestion, Denies cough, Denies dyspnea and Denies wheezing GI Denies abdominal pain, Denies bloating, Denies constipation, Denies dysphagia, Denies heartburn, Denies diarrhea, Denies nausea, Denies odynophagia and Denies vomiting Denies hematuria, Denies difficulty urinating, Denies dysuria, Denies urinary frequency and Denies urinary urgency Musc Denies back pain, Denies arthralgias, Denies joint swelling, Denies muscle weakness and Denies neck pain Skin/Breast Denies change in pigmentation, Denies lesions, Denies rash and Denies unusual bruising Neuro Denies dizziness, Denies headache(s), Denies paresthesias and Denies weakness Psych Denies anxiety and Denies depression Endo Denies fatigue and Denies palpitations Aller/Immun Denies itchy eyes and Denies wheezing Physical exam (Primary Care) Vital Signs: Last Vital Signs Pulse 110 H 11/09/23 09:04 Resp 17 11/09/23 09:04 BP 176/82 H 11/09/23 09:04 Pulse Ox 97 11/09/23 09:04 Oxygen Delivery Method Room Air 11/09/23 09:04 BMI result Body Mass Index 34.8 Tobacco/Smoking Status: Tobacco use Status Tobacco use date assessed 11/09/23 11/09/23 09:12 Patient Tobacco Use Status Former Tobacco user 11/09/23 09:04 e-Cigarette/Vaping Use Never Used 11/09/23 09:04 PHQ-9: PHQ-9 Score PHQ-9: Total score 0 11/09/23 09:12 Depression Screening Interpretation: Negative Thrive Assessment: Date of Thrive Assessment Date Thrive assessed 11/09/23 11/09/23 09:12 Currently or been in a relationship where the following occur: no concerns reported Const General: no acute distress, alert and awake Orientation/consciousness: patient oriented x3 HENMT Head: Yes normocephalic and Yes atraumatic Ears: external ears normal, TM's normal bilaterally and EAC's normal General nose exam: No nasal discharge present Face and sinus: Yes normal facial exam and Yes sinuses nontender Teeth and gingiva: dentition normal Throat: Yes posterior oropharynx normal and Yes tonsils normal (no TP congestion) Eyes Eyelids: Yes eyelids normal Conjunctivae: conjunctivae normal Pupils: Equal, round and reactive pupils present EOM: EOMs intact bilaterally Neck Neck: Yes no lymphadenopathy and Yes supple Thyroid: Thyroid normal Resp Auscultation: clear to auscultation bilaterally, no rales and no wheezes Cardio Rate: regular rate Rhythm: regular rhythm Heart sounds: no murmurs GI Palpation (GI): Soft to palpation, nontender and No hepatosplenomegaly present Auscultation: normal bowel sounds General: Yes no CVA tenderness Back/Spine/Pelvis Back: no CVA tenderness Thoracic/Lumbar Spine: thoracic and lumbar spine normal to inspection Skin Lesions: no lesions Rashes: no rashes Neuro General: patient oriented x3, moves all extremities, no focal motor deficits and CN's II-XI intact bilaterally Cranial nerves: Yes Equal, round and reactive pupils present Cognition (Neuro): normal cognition Gait exam (Neuro): Normal gait present Extrem General: Yes no clubbing, cyanosis or edema Results Reviewed Results Reviewed: Laboratory Tests 08/17/23 08/17/23 07:17 07:20 WBC 7.3 Hgb 14.4 Hct 42.9 Plt Count 267 Sodium 140 Potassium 4.4 Creatinine 0.78 Estimated GFR > 60 Fasting Glucose 170 H Hemoglobin A1c % 7.0 H Calcium 9.5 AST 18 ALT 15 Triglycerides 92 Cholesterol 124 LDL Cholesterol, Calc 69 HDL Cholesterol 37 L Prostate Specific Ag 0.68 Vitamin B12 542 25-OH Vitamin D Total 53.0 TSH 2.30 Ur Specific Neptune 1.020 Urine Protein Negative Urine Glucose (UA) 100 H Urine Blood Negative Urine Nitrite Negative Ur Leukocyte Esterase Negative Microalb/Creat Ratio 7.7 Assessment and Plan Assessment & Plan (1) Diabetes mellitus: Code(s): E11.9 - Type 2 diabetes mellitus without complications Qualifiers: Diabetes mellitus type: type 2 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: without correction use Diabetes mellitus complication status: without complication Qualified Code(s): E11.9 - Type 2 diabetes mellitus without complications Plan: HgbA1c was at 7.0% on his labs done a couple of months ago (was at 6.9% previously) - goal is <7.0% Reinforced diabetic diet Continue Pioglitazone 30 mg QD, Metformin 1000 mg BID, Toujeo Solostar 300 units/ml 35 units SQ QD and Trulicity 0.75 mg once a week He has been referred to endocrinology for further evaluation and management a couple of times over the past 2 years but he has yet to be seen so far (2) Benign essential hypertension: Code(s): I10 - Essential (primary) hypertension Plan: His initial BP was very high today at 176/82 mm; repeat BP a few minutes later came down slightly to 150/86 mm Reinforced low sodium diet - goal is systolic BP of at least 130 to 140 mm or less Continue Lisinopril 10 mg QD for now as patient (again) prefers not to have his BP med dosage raised as much as possible He recalls feeling very dizzy and lightheaded frequently a few years ago when he was on 20 mg of Lisinopril and his dosage had to be cut back all the way to 5 mg daily at the time just to allow his symptoms to clear up Patient is advised to continue monitoring his blood pressure regularly; will also have our nurse navigator follow up with him on this (3) Pure hypercholesterolemia: Code(s): E78.00 - Pure hypercholesterolemia, unspecified Plan: Results of his labs done a couple of months ago reviewed and discussed with patient - these were originally for his appt in August 2023 that ended up being rescheduled Reinforced low cholesterol diet Continue Atorvastatin 20 mg QD Will recheck his labs and fasting lipids in 4 months for follow up (4) Anemia: Code(s): D64.9 - Anemia, unspecified Qualifiers: Anemia type: unspecified type Qualified Code(s): D64.9 - Anemia, unspecified Plan: Corrected Will continue to monitor CBC regularly (5) Vitamin D deficiency: Code(s): E55.9 - Vitamin D deficiency, unspecified Plan: Continue Vitamin D3 2000 units QD (6) Bilateral lower extremity edema: Code(s): R60.0 - Localized edema Plan: Most likely stasis edema - patient states that this has not been occurring as often as before Patient is encouraged again to elevate his legs and feet as often as he can throughout the day and advised that wearing compression/support stockings may help Patient is reminded that he should call if this gets significantly worse at any time - may need to check echocardiogram and reevaluate his renal function then (7) Diabetic autonomic neuropathy: Code(s): E11.43 - Type 2 diabetes mellitus with diabetic autonomic (poly)neuropathy Qualifiers: Diabetes mellitus type: type 2 Qualified Code(s): E11.43 - Type 2 diabetes mellitus with diabetic autonomic (poly)neuropathy Plan: EMG and NCV done back on 03/07/2023 revealed (+) moderately severe axonal sensory greater than motor peripheral neuropathy in the lower extremities bilaterally. EMG of the right L4-S1 innervated muscles are consistent with distal chronic neuropathic changes of neuropathy Have again advised patient that neuropathy is due to nerve damage and that other than Rx to help control/manage the symptoms, there is nothing we can give or prescribe to help treat or cure the condition Reminded again that the only thing we can do to control this is tight control of his blood sugar to minimize or halt the progression of this condition Patient states that his symptoms are mostly tolerable and do not really bother him too much and he prefers not to take any more medications at this time; states that he will call if his symptoms get significantly worse (8) History of malignant neoplasm of rectum: Code(s): Z85.048 - Personal history of other malignant neoplasm of rectum, rectosigmoid junction, and anus Plan: Follow up with GI (Dr. Alvarez) as scheduled for continuing surveillance Had repeat colonoscopy on 11/22/2018 - colonoscopy came out normal ( had a polyp that came out as tubular adenoma on pathology ) and repeat colonoscopy will be in 5 years (2023) States that he is scheduled to see Dr. Alvarez in February 2024 and he will then be scheduled for a repeat colonoscopy after that (9) Obesity (BMI 30-39.9): Code(s): E66.9 - Obesity, unspecified Plan: Reinforced diet/exercise as tolerated/lose weight - patient has gained some weight since his last visit and advised that this may also be contributing to the rise in his blood pressure lately Plan Follow up in 4 months Orders: Orders Lipid Panel 4 Months E78.00 - Pure hypercholesterolemia, unspecified Complete Blood Count Auto Diff 4 Months D64.9 - Anemia, unspecified UA CC w/rflx Micro + Cult 4 Months R30.0 - Dysuria Vitamin B12 and Folate 4 Months E53.8 - Deficiency of other specified B group vitamins Vitamin D 25-OH Total 4 Months E55.9 - Vitamin D deficiency, unspecified Hemoglobin A1c 4 Months E11.9 - Type 2 diabetes mellitus without complications Comprehensive [place]. Panel Fast 4 Months E78.00 - Pure hypercholesterolemia, unspecified Microalbumin, Random (w Creat) 4 Months E11.9 - Type 2 diabetes mellitus without complications TSH reflex Free T4 4 Months E78.00 - Pure hypercholesterolemia, unspecified Coding Level of Care Code Est Pt Level 4 (98745) Diagnoses Type 2 diabetes mellitus without complication, without long-term current use of insulin E11.9 Diabetes mellitus type: type 2 Diabetes mellitus correction insulin use: without correction use Diabetes mellitus complication status: without complication Benign essential hypertension I10 Pure hypercholesterolemia E78.00 Anemia, unspecified type D64.9 Anemia type: unspecified type Vitamin D deficiency E55.9 Bilateral lower extremity edema R60.0 Diabetic autonomic neuropathy associated with type 2 diabetes mellitus E11.43 Diabetes mellitus type: type 2 History of malignant neoplasm of rectum Z85.048 Obesity (BMI 30-39.9) E66.9 Additional Codes NAYAN-7 Assessment Billing - NAYAN-7 Assessment Tool: NAYAN-7 Assessment 40021 ([id number])
[2023-11-09 09:04] VITALS: BP 176/82; PULSE 110; RESP 17; O2SAT 97; BMI 34.8
[2023-11-09 09:27] VITALS: BP 150/86
== END 2023-11-09 09:37 | disposition home or self-care (01) ==
PROVIDERS: PCP Internal Medicine; Visit Provider Internal Medicine
DX: E11.43 Type 2 diabetes mellitus with diabetic autonomic (poly)neuropathy (principal); I10 Essential (primary) hypertension; E78.00 Pure hypercholesterolemia, unspecified; D64.9 Anemia, unspecified; E55.9 Vitamin D deficiency, unspecified; R60.0 Localized edema; Z85.048 Personal history of other malignant neoplasm of rectum, rectosigmoid junction, and anus; E66.9 Obesity, unspecified
CPT/HCPCS: 99214

== ENCOUNTER 2024-03-11 06:20 | Outpatient (REF) | payer MEDICARE, SELFPAY ==
[2024-03-11 06:34] LABS: MANUAL DIFF FLAG NO
[2024-03-11 07:44] LABS: Basophils Percent Auto 0.5 % (0-2); Eosinophils Absolute Auto 0.1 X10*3/uL (0.0-0.4); Eosinophils Percent Auto 1.8 % (0-4); Hematocrit 40.7 % (42.0-52.0); Hemoglobin 13.8 g/dl (14.0-18.0); Imm Gran Abs Auto 0.04 X10*3/uL (0.00-0.03); Imm Gran Pct Auto 0.5 % (0.0-0.4); Lymphocytes Absolute Auto 1.5 X10*3/uL (1.2-4.9); Lymphocytes Percent Auto 20.1 % (20-40); Mean Corpuscular HGB Conc 33.9 g/dl (31.0-36.0); Mean Corpuscular Hemoglobin 32.8 pg (27.0-33.0); Mean Corpuscular Volume 96.7 fL (80.0-98.0); Mean Platelet Volume 9.9 fL (9.4-12.4); Monocytes Absolute Auto 0.7 X10*3/uL (0.1-1.2); Neutrophils Absolute Auto 4.9 x10*3/uL (2.0-8.3); Neutrophils Percent Auto 67.1 % (45-73); Platelet Count 282 X10*3/uL (160-400); Red Blood Count 4.21 X10*6/uL (4.60-5.80); Red Cell Distribution Width 12.8 % (11.0-16.0); White Blood Count 7.3 X10*3/uL (4.8-10.8)
[2024-03-11 07:52] LABS: Appearance Urine Clear; Color Urine Yellow; Glucose Urine UA Negative (Negative); Leukocyte Esterase Urine Negative (Negative); Nitrite Urine Negative (Negative); PH 6.5 (5.0-9.0); Urine Blood Negative (Negative); Urine Ketones Negative (Negative); Urine Protein Negative (Neg-Trace)
[2024-03-11 08:00] LABS: Estimated Average Glucose 160 mg/dL; Hemoglobin A1c % 7.2 % (<6.0)
[2024-03-11 08:16] LABS: Creatinine Urine 32.16 mg/dL; Microalbumin Urine < 5.0 mg/L
[2024-03-11 08:16] LABS: Alanine Aminotransferase 13 U/L (0-40); Albumin Level 4.3 g/dL (3.5-5.0); Alkaline Phosphatase 90 U/L (39-117); Anion Gap 13 (12-20); Aspartate Amino Transferase 16 U/L (5-37); Bilirubin Total 0.5 mg/dL (0.0-1.0); Blood Urea Nitrogen 15 mg/dL (9-16); Calcium 9.6 mg/dL (8.4-10.2); Carbon Dioxide 29 mmol/L (22-29); Chloride 104 mmol/L (96-108); Cholesterol 139 mg/dL (<200); Estimated Glomerular Filt Rate > 60; Glucose Fasting 124 mg/dL (60-99); HDL Cholesterol 40 mg/dL (>40); LDL Cholesterol Calculated 83 mg/dL (<100); Potassium 4.2 mmol/L (3.3-5.1); Sodium 142 mmol/L (135-145); Total Protein 7.3 g/dL (6.5-8.0); Triglycerides 84 mg/dL (<150)
[2024-03-11 08:37] LABS: TSH reflex Free T4 2.36 uIU/mL (0.32-4.0); Vitamin D 25-OH Total 45.7 ng/mL (>30)
[2024-03-11 08:42] LABS: Folate 13.3 ng/mL (> or = 4.0); Vitamin B12 486 pg/mL (200-900)
== END 2024-03-11 06:21 | disposition home or self-care (01) ==
LOC: HO.LAB 06:20
PROVIDERS: PCP Internal Medicine; Visit Provider Internal Medicine
DX: D64.9 Anemia, unspecified (principal); R30.0 Dysuria; E53.8 Deficiency of other specified B group vitamins; E11.9 Type 2 diabetes mellitus without complications; E78.00 Pure hypercholesterolemia, unspecified; E55.9 Vitamin D deficiency, unspecified
CPT/HCPCS: 36415; 80053; 80061; 81003; 82043; 82306; 82570; 82607; 82746; 83036; 84443; 85025

== ENCOUNTER 2024-03-12 08:36 | Outpatient (AMB) | payer MEDICARE, SELFPAY ==
[2024-03-12 08:44] VITALS: BP 148/80; PULSE 107; O2SAT 94; BMI 33.9
--- NOTE | 2024-03-12 08:44 | MHC.PC.OV ---
Vital Signs 03/12/24 08:44 Height 6 ft 2 in Weight 264 lb BMI 33.9 BP 148/80 H Blood Pressure Location Lt brachial Position Sitting Pulse 107 H Pulse Source Pulse Oximeter Pulse Oximetry (%) 94 Oxygen Delivery Method Room Air Intake Visit Reasons: Shafer eye cataract 03/27 Grape Grower Required: No Accompanied by: Self / Same As Patient Allergies No Known Allergies Allergy (Verified 03/12/24 09:19) Medication List - Last Reconciled 03/12/24 by Nakul Torres MD albuterol sulfate 90 mcg/actuation 2 inhalations inhalation Q4-6H PRN atorvastatin 20 mg PO BEDTIME 90 days cholecalciferol (vitamin D3) 50 mcg PO DAILY insulin glargine U-300 conc (Toujeo SoloStar U-300 Insulin) 35 units (0.1167 mL) subcut DAILY lisinopril 10 mg PO DAILY 90 days metformin 1,000 mg PO BID 90 days pen needle, diabetic (BD Ultra-Fine Racquel Pen Needle) 1 ea subcut DAILY pioglitazone 30 mg PO DAILY 90 days Trulicity (dulaglutide) 0.75 mg (0.5 mL) subcut QWEEK 4 weeks NS Tobacco use date assessed: 11/09/23 Fall risk assessment: No Falls in past year Last assessed Fall Risk: 03/12/24 Dental Screening Dental Screen Date: 11/09/23 HPI Shafer eye cataract 03/27 HPI Details Patient comes in today for his follow up visit He is also in today to get a preoperative medical exam for clearance for surgery at the request of [facility] He is currently scheduled for cataract extraction/phacoemulsification with IOL of the right eye under MAC on 03/27/2024, followed by the same procedure on the left eye 2 weeks later on 04/10/2024 Patient states that he feels okay Denies any headaches or dizziness Denies any chest pains, no SOB No nausea/vomiting, no abdominal pain No change in bowel habits noted Had his follow up labs done yesterday - to discuss his results [facility] Medical History (Updated 03/12/24 @ 09:30 by Nakul Torres MD) Bilateral lower extremity edema Obesity (BMI 30-39.9) History of malignant neoplasm of rectum Vitamin D deficiency Anemia Pure hypercholesterolemia Benign essential hypertension Diabetes mellitus Surgical History Hx of colonoscopy History of colon resection (~08/23/04) Family History Father Medical history unknown Mother Hypertension Stroke Diabetes Cancer Social History Housing: Apartment Alcohol intake: never Patient Tobacco Use Status: Former Tobacco user e-Cigarette/Vaping Use: Never Used Second Hand Smoke Exposure: Yes service: No Current occupational status: retired Cognitive needs: No Hearing needs: No Vision needs: Yes (glasses) Questionnaire Thrive Questionnaire Date Thrive assessed: 11/09/23 NAYAN-7 AMB Questionnaire NAYAN-7 Date NAYAN - 7 assessed: 11/09/23 Source: Developed by Drs. Henry Beebe, Lanette Interiano, Nikunj Clifton and colleagues, with an educational pablo from [employer]. Review of Systems Const Denies chills, Reports difficulty sleeping (at times), Denies fatigue, Denies fever(s) and Denies headache(s) Eyes Reports blurry vision ENT Denies dysphagia, Denies dizziness, Denies otalgia, Denies headache(s), Denies neck pain, Denies odynophagia and Denies sore throat Card Denies chest pain, Denies irregular heart rhythm, Denies palpitations and Denies dyspnea Resp Denies chest congestion, Denies cough, Denies dyspnea and Denies wheezing GI Denies abdominal pain, Denies constipation, Denies dysphagia, Denies heartburn, Denies diarrhea, Denies nausea, Denies odynophagia and Denies vomiting Denies difficulty urinating, Denies dysuria and Denies urinary frequency Musc Denies back pain, Denies arthralgias and Denies neck pain Skin/Breast Denies rash Neuro Denies dizziness, Denies headache(s) and Denies paresthesias Psych Denies anxiety Endo Denies fatigue and Denies palpitations Aller/Immun Denies wheezing Physical exam (Primary Care) Vital Signs: Last Vital Signs Pulse 107 H 03/12/24 08:44 BP 148/80 H 03/12/24 08:44 Pulse Ox 94 03/12/24 08:44 Oxygen Delivery Method Room Air 03/12/24 08:44 BMI result Body Mass Index 33.9 Tobacco/Smoking Status: Tobacco use Status Tobacco use date assessed 11/09/23 03/12/24 08:48 Patient Tobacco Use Status Former Tobacco user 03/12/24 08:48 e-Cigarette/Vaping Use Never Used 03/12/24 08:48 Thrive Assessment: Date of Thrive Assessment Date Thrive assessed 11/09/23 03/12/24 08:48 Const General: no acute distress and alert HENMT Ears: TM's normal bilaterally and EAC's normal Throat: Yes posterior oropharynx normal and Yes tonsils normal (no TP congestion) Neck Neck: Yes no lymphadenopathy and Yes supple Thyroid: Thyroid normal Resp Auscultation: clear to auscultation bilaterally, no rales and no wheezes Cardio Rate: regular rate Rhythm: regular rhythm Heart sounds: no murmurs GI Palpation (GI): Soft to palpation and nontender Auscultation: normal bowel sounds General: Yes no CVA tenderness Back/Spine/Pelvis Back: no CVA tenderness Thoracic/Lumbar Spine: No lumbar spinal tenderness Skin Rashes: no rashes Extrem General: Yes no clubbing, cyanosis or edema Results Reviewed Results Reviewed: Laboratory Tests 03/11/24 03/11/24 06:23 06:33 WBC 7.3 Hgb 13.8 L Hct 40.7 L Plt Count 282 Sodium 142 Potassium 4.2 Creatinine 0.77 Estimated GFR > 60 Fasting Glucose 124 H Hemoglobin A1c % 7.2 H Calcium 9.6 AST 16 ALT 13 Triglycerides 84 Cholesterol 139 LDL Cholesterol, Calc 83 HDL Cholesterol 40 L Vitamin B12 486 25-OH Vitamin D Total 45.7 TSH 2.36 Ur Specific [place] 1.010 Urine Protein Negative Urine Glucose (UA) Negative Urine Blood Negative Urine Nitrite Negative Ur Leukocyte Esterase Negative Assessment and Plan Assessment & Plan (1) Preoperative examination: Code(s): Z01.818 - Encounter for other preprocedural examination Plan: Patient presents with acceptable risks for planned low cardiac-risk procedure He is currently stable with no contraindications to undergo planned procedure(s) but have advised that his blood pressure and diabetes should be further improved and addressed to help lower his overall health risks Results of his labs done yesterday reviewed and discussed with patient - results are attached above for review He last had an EKG done in November 2022 - sinus tachycardia with non-specific ST-T wave changes (2) Cataract: Code(s): H26.9 - Unspecified cataract Qualifiers: Cataract type: age-related Age-related cataract type: unspecified Laterality: bilateral Qualified Code(s): H25.9 - Unspecified age-related cataract Plan: He is currently scheduled for cataract extraction/phacoemulsification with IOL of the right eye under MAC on 03/27/2024, followed by the same procedure on the left eye 2 weeks later on 04/10/[address] Bin Andujar (3) Diabetes mellitus: Code(s): E11.9 - Type 2 diabetes mellitus without complications Qualifiers: Diabetes mellitus type: type 2 Diabetes mellitus predatory animal exterminator insulin use: without predatory animal exterminator use Diabetes mellitus complication status: without complication Qualified Code(s): E11.9 - Type 2 diabetes mellitus without complications Plan: His HgbA1c is at 7.2% on his labs done yesterday (was at 7.0% a few months ago) - goal is <7.0% Reinforced diabetic diet Continue Pioglitazone 30 mg QD, Metformin 1000 mg BID and Toujeo Solostar 300 units/ml 35 units SQ QD Will go ahead and increase his Trulicity now to 1.5 mg SQ once a week to help get his diabetes under better control He has been referred to endocrinology for further evaluation and management a couple of times over the past 2 years but states that he has been unable to get in to see them so far (4) Benign essential hypertension: Code(s): I10 - Essential (primary) hypertension Plan: Reinforced low sodium diet - goal is systolic BP of at least 130 to 140 mm or less Continue Lisinopril 10 mg QD Patient again prefers not to have his dosage increased as he recalls feeling very dizzy and lightheaded frequently a few years ago when he was on 20 mg of Lisinopril and his dosage had to be cut back all the way to 5 mg daily at the time just to allow his symptoms to clear up He agrees to try adding low dose HCTZ 12.5 mg QD as we have explained to him that even when he came in a few times for BP check with our nurse navigator, his systolic BP was still consistently high He is advised to call us up JAZZMINE should he start to experience any unusual symptoms when he starts taking his HCTZ; otherwise he is to continue on it daily until his next appointment Patient is reminded to continue monitoring his blood pressure regularly (5) Pure hypercholesterolemia: Code(s): E78.00 - Pure hypercholesterolemia, unspecified Plan: Results of his labs done yesterday reviewed and discussed with patient Reinforced low cholesterol diet Continue Atorvastatin 20 mg QD Will recheck his labs and fasting lipids in 4 months for follow up (6) Anemia: Code(s): D64.9 - Anemia, unspecified Qualifiers: Anemia type: unspecified type Qualified Code(s): D64.9 - Anemia, unspecified Plan: Corrected/stable Will continue to monitor his CBC regularly (7) Vitamin D deficiency: Code(s): E55.9 - Vitamin D deficiency, unspecified Plan: Continue Vitamin D3 2000 units QD (8) Bilateral lower extremity edema: Code(s): R60.0 - Localized edema Plan: Most likely stasis edema - patient states that this has not been occurring as often as before Patient is encouraged again to elevate his legs and feet as often as he can throughout the day and advised that wearing compression/support stockings may help Have advised him that starting him on low dose HCTZ should also help address this better (9) Diabetic autonomic neuropathy: Code(s): E11.43 - Type 2 diabetes mellitus with diabetic autonomic (poly)neuropathy Qualifiers: Diabetes mellitus type: type 2 Qualified Code(s): E11.43 - Type 2 diabetes mellitus with diabetic autonomic (poly)neuropathy Plan: EMG and NCV done back on 03/07/2023 revealed (+) moderately severe axonal sensory greater than motor peripheral neuropathy in the lower extremities bilaterally. EMG of the right L4-S1 innervated muscles are consistent with distal chronic neuropathic changes of neuropathy Have again advised patient that neuropathy is due to nerve damage and that other than Rx to help control/manage the symptoms, there is nothing we can give or prescribe to help treat or cure the condition Reminded again that the only thing we can do to control this is tight control of his blood sugar to minimize or halt the progression of this condition Patient states that his symptoms are mostly tolerable and do not really bother him too much and he prefers not to take any more medications at this time; states that he will call if his symptoms get significantly worse (10) History of malignant neoplasm of rectum: Code(s): Z85.048 - Personal history of other malignant neoplasm of rectum, rectosigmoid junction, and anus Plan: Follow up with GI (Dr. Alvarez) as scheduled for continuing surveillance Had repeat colonoscopy on 11/22/2018 - colonoscopy came out normal ( had a polyp that came out as tubular adenoma on pathology ) and repeat colonoscopy will be in 5 years (2023) States that he is now scheduled for his repeat colonoscopy with Dr. Alvarez in June 2024 (11) Obesity (BMI 30-39.9): Code(s): E66.9 - Obesity, unspecified Plan: Reinforced diet/exercise as tolerated/lose weight Plan Patient is currently stable and has no medical contraindications to undergo planned low cardiac risk procedure - is MEDICALLY CLEARED for his upcoming cataract surgeries Follow up in 4 months Orders: Orders Complete Blood Count Auto Diff 4 Months D64.9 - Anemia, unspecified Microalbumin, Random (w Creat) 4 Months E11.9 - Type 2 diabetes mellitus without complications TSH reflex Free T4 4 Months E78.00 - Pure hypercholesterolemia, unspecified UA CC w/rflx Micro + Cult 4 Months R30.0 - Dysuria Vitamin D 25-OH Total 4 Months E55.9 - Vitamin D deficiency, unspecified Hemoglobin A1c 4 Months E11.9 - Type 2 diabetes mellitus without complications Lipid Panel 4 Months E78.00 - Pure hypercholesterolemia, unspecified Comprehensive [place]. Panel Fast 4 Months E78.00 - Pure hypercholesterolemia, unspecified Medications: New hydrochlorothiazide 12.5 mg PO QAM 90 days 90 tabs 1RF Changed From Trulicity (dulaglutide) 0.75 mg (0.5 mL) subcut QWEEK 4 weeks 2 mL 0RF NS To dulaglutide 1.5 mg (0.5 mL) subcut QWEEK 4 weeks 2 mL 3RF Coding Level of Care Code Est Pt Level 4 (56864) Complex EM visit Add On G2211 Diagnoses Preoperative examination Z01.818 Age-related cataract of both eyes, unspecified age-related cataract type H25.9 Cataract type: age-related Age-related cataract type: unspecified Laterality: bilateral Type 2 diabetes mellitus without complication, without long-term current use of insulin E11.9 Diabetes mellitus type: type 2 Diabetes mellitus predatory animal exterminator insulin use: without skilled nursing use Diabetes mellitus complication status: without complication Benign essential hypertension I10 Pure hypercholesterolemia E78.00 Anemia, unspecified type D64.9 Anemia type: unspecified type Vitamin D deficiency E55.9 Bilateral lower extremity edema R60.0 Diabetic autonomic neuropathy associated with type 2 diabetes mellitus E11.43 Diabetes mellitus type: type 2 History of malignant neoplasm of rectum Z85.048 Obesity (BMI 30-39.9) E66.9
== END 2024-03-12 09:31 | disposition home or self-care (01) ==
PROVIDERS: PCP Internal Medicine; Visit Provider Internal Medicine
DX: E11.43 Type 2 diabetes mellitus with diabetic autonomic (poly)neuropathy (principal); E66.9 Obesity, unspecified; Z68.33 Body mass index [BMI] 33.0-33.9, adult; Z01.818 Encounter for other preprocedural examination; H25.9 Unspecified age-related cataract; I10 Essential (primary) hypertension; E78.00 Pure hypercholesterolemia, unspecified; D64.9 Anemia, unspecified; E55.9 Vitamin D deficiency, unspecified; R60.0 Localized edema; Z85.048 Personal history of other malignant neoplasm of rectum, rectosigmoid junction, and anus
CPT/HCPCS: 99214; G2211

== ENCOUNTER 2024-06-23 06:21 | Day surgery (SDC) | payer MEDICARE, SELFPAY ==
[2024-06-19 13:24] VITALS: BMI 34.3
[2024-06-23 06:44] VITALS: BP 142/72; PULSE 100; RESP 14; TEMP 36.2; O2SAT 96; BMI 30.8
[2024-06-23] MEDS: Lactated Ringers 1,000 ML 100 ML IVCONT (07:24)
--- NOTE | 2024-06-23 07:25 | HO.ANESPROP2 ---
Documented by User: Rosa Skelton NP 06/20/24 09:19 HPI - Anesthesia Eval Consult details Narrative: 68yo M for Colonoscopy Anesthesia Pre-Procedure Meds Is the patient on any of the following meds?: GLP1/DPP4 PMFSH Active Problems Active Problems: All Active Problems Cataract (Acute) Preoperative examination (Acute) Annual physical exam (Acute) Diabetic autonomic neuropathy (Acute) Unsteady gait (Acute) Left arm pain (Acute) Otitis externa of left ear (Acute) Bilateral lower extremity edema (Acute) Obesity (BMI 30-39.9) (Acute) History of malignant neoplasm of rectum (Acute) Vitamin D deficiency (Acute) Anemia (Acute) Pure hypercholesterolemia (Acute) Benign essential hypertension (Acute) Diabetes mellitus (Acute) Past Medical History Medical History History of colon cancer Bilateral lower extremity edema Obesity (BMI 30-39.9) History of malignant neoplasm of rectum Vitamin D deficiency Anemia Pure hypercholesterolemia Benign essential hypertension Diabetes mellitus Family History Family History Father Medical history unknown Mother Hypertension Stroke Diabetes Cancer Surgical History Surgical History Hx of bilateral cataract extraction Hx of appendectomy Hx of colonoscopy History of colon resection (~08/23/04) Social History Social History Housing: Apartment Are you a primary doggy daycare activities director to a significant other at home: No Do you presently have visiting nurse or other home services: No Alcohol intake: never Patient Tobacco Use Status: Former Tobacco user e-Cigarette/Vaping Use: Never Used Second Hand Smoke Exposure: Yes Use of substances other than those prescribed or required for medical reasons: No Have you been hit, kicked, punched, or otherwise hurt by someone within the past year? If so, by whom?: No Are you DNR?: No Advance Directives: No Advance Directives Information Provided: Yes Recently lost weight without trying: No Nutrition Risks: No Nutritional Risk Poor oral hygiene: No service: No Current occupational status: retired Cognitive needs: No Hearing needs: No Vision needs: Yes (glasses) Meds Allergies Allergy/AdvReac Type Severity Reaction Status Date / Time No Known Allergies Allergy Verified 06/23/24 06:58 Home Medications ?Medication ?Instructions ?Recorded ?Confirmed ?Last Taken ?Type cholecalciferol (vitamin D3) 50 50 mcg PO DAILY 07/15/20 06/23/24 Unknown History mcg (2,000 unit) capsule atorvastatin 20 mg tablet 10 mg PO BEDTIME 06/19/24 06/23/24 Unknown History lisinopril 10 mg tablet 5 mg PO DAILY 06/19/24 06/23/24 Unknown History vitamin B complex 1 cap PO DAILY 06/19/24 06/19/24 Unknown History Exam Height,Weight and Vital Signs: Height 6 ft 2 in Weight 121.109 kg Assessment and Plan Assessment Anesthesia Assessment: Chart Reviewed Documented by User: Monique Lord DO 06/23/24 07:37 HPI - Anesthesia Eval Anesthesia Pre-Procedure Meds Is the patient on any of the following meds?: GLP1/DPP4 PMFSH Past Medical History Medical History History of colon cancer Bilateral lower extremity edema Obesity (BMI 30-39.9) History of malignant neoplasm of rectum Vitamin D deficiency Anemia Pure hypercholesterolemia Benign essential hypertension Diabetes mellitus Family History Family History Father Medical history unknown Mother Hypertension Stroke Diabetes Cancer Family history of problems with anesthesia: No Surgical History Surgical History Hx of bilateral cataract extraction Hx of appendectomy Hx of colonoscopy History of colon resection (~08/23/04) History of Problems with Anesthesia: No Social History Social History Housing: Apartment Are you a primary doggy daycare activities director to a significant other at home: No Do you presently have visiting nurse or other home services: No Alcohol intake: never Patient Tobacco Use Status: Former Tobacco user e-Cigarette/Vaping Use: Never Used Second Hand Smoke Exposure: Yes Use of substances other than those prescribed or required for medical reasons: No Have you been hit, kicked, punched, or otherwise hurt by someone within the past year? If so, by whom?: No Are you DNR?: No Advance Directives: No Advance Directives Information Provided: Yes Recently lost weight without trying: No Nutrition Risks: No Nutritional Risk Poor oral hygiene: No service: No Current occupational status: retired Cognitive needs: No Hearing needs: No Vision needs: Yes (glasses) Meds Allergies Allergy/AdvReac Type Severity Reaction Status Date / Time No Known Allergies Allergy Verified 06/23/24 06:58 Home Medications ?Medication ?Instructions ?Recorded ?Confirmed ?Last Taken ?Type cholecalciferol (vitamin D3) 50 50 mcg PO DAILY 07/15/20 06/23/24 Unknown History mcg (2,000 unit) capsule atorvastatin 20 mg tablet 10 mg PO BEDTIME 06/19/24 06/23/24 Unknown History lisinopril 10 mg tablet 5 mg PO DAILY 06/19/24 06/23/24 Unknown History vitamin B complex 1 cap PO DAILY 06/19/24 06/19/24 Unknown History Exam Exam Date and Time: 06/23/24 0725 Height,Weight and Vital Signs: Height 6 ft 2 in Weight 121.109 kg Height 6 ft 2 in Weight 108.862 kg Vital Signs Temperature 97.2 F 06/23/24 06:44 Pulse Rate 100 06/23/24 06:44 Respiratory Rate 14 06/23/24 06:44 Blood Pressure 142/72 H 06/23/24 06:44 Pulse Oximetry 96 06/23/24 06:44 Oxygen Delivery Method Room Air 06/23/24 06:44 Temperature 97.2 F 06/23/24 06:44 Pulse Rate 100 06/23/24 06:44 Respiratory Rate 14 06/23/24 06:44 Blood Pressure 142/72 H 06/23/24 06:44 Pulse Oximetry 96 06/23/24 06:44 Oxygen Delivery Method Room Air 06/23/24 06:44 Airway Mallampati Class: III TM Dist: >3cm Neck ROM: Full Loose/Missing/Broken Teeth: No (patient denies any loose or broken teeth) Heart: S1S2 Lungs: CTAB Assessment and Plan Assessment Anesthesia Assessment: Anesthesia Plan Discussed and Chart Reviewed Final Anesthetic Review Family History of Problems with Anesthesia: No History of Problems with Anesthesia: No NPO: Yes ASA Class: III Final Preanesthetic Review: No Changes in Pt Med Stat, Meds/Allgs Chart Reviewed, Consent Obtained/Reviewed and Anes Risks/Benef Reviewed Patient Risk: Intermediate Procedure Risk: Low Anesthetic Plan Anesthetic Plan: MAC: and Agree w/ Assess. and Plan Disposition: Standard PACU
[2024-06-23 07:54] LABS: Glucose, Whole Blood 123 mg/dL (60-115)
[2024-06-23 08:26] VITALS: BP 86/45; PULSE 86; RESP 16; TEMP 36.3; O2SAT 93
[2024-06-23 08:29] VITALS: BP 90/49
[2024-06-23 08:30] VITALS: BP 104/52
--- NOTE | 2024-06-23 08:31 | PM.OP ---
Brief Operative Note Date of Service: 06/23/24 Pre-op diagnosis: Screening Post-op diagnosis: other (Polyp) Procedure: Colonoscopy to the cecum with cold snare polypectomy Surgeon: Henry Alvarez MD Anesthesia: MAC Was an Supervisor Sandblaster used for this Procedure?: No Estimated blood loss (mL): 2.0 Pathology: other (A. Polyp at 50cm) Condition: stable Disposition: PACU
[2024-06-23 08:41] VITALS: BP 103/65; PULSE 90; RESP 18; O2SAT 97
[2024-06-23 08:56] VITALS: BP 114/72; PULSE 84; RESP 18; TEMP 36.4; O2SAT 98
--- NOTE | 2024-06-23 09:22 | OP_ITS ---
DATE OF SERVICE: 06/23/2024 SURGEON: Henry Alvarez MD INDICATIONS: The patient presents for evaluation of a personal history of a malignant colon polyp, personal history of tubular adenoma of the colon, and need for colorectal cancer screening. Full consent has been obtained from him for this, including risks of bleeding and perforation. PREOPERATIVE DIAGNOSIS: POSTOPERATIVE DIAGNOSIS: PROCEDURE PERFORMED: Colonoscopy to the cecum with cold snare polypectomy x1. ESTIMATED BLOOD LOSS: COMPLICATIONS: ANESTHESIA: Monitored anesthesia care. ASSISTANTS: SPECIMENS: PREOPERATIVE DIAGNOSES: Personal history of a malignant colon polyp, personal history of tubular adenoma of the colon, and colorectal cancer screening. POSTOPERATIVE DIAGNOSES: Personal history of a malignant colon polyp, personal history of tubular adenoma of the colon, colorectal cancer screening, small colon polyp, diverticulosis, normal anastomosis, and internal hemorrhoids. DESCRIPTION OF PROCEDURE: The patient was placed in the left lateral decubitus position. The digital rectal exam revealed no abnormalities. The [employer] video pediatric colonoscope was then entered into the rectum and advanced easily to the cecum. Once in the cecum, I did identify normal-appearing cecal pouch with appendiceal orifice and a normal-appearing ileocecal valve. The entire cecum and ileocecal valve appeared normal. The scope was slowly withdrawn assessing all mucosal surfaces carefully. Preparation was excellent. At 50 cm, was a flat, approximately 5 mm polyp, which was removed by cold snare polypectomy and recovered by suction. The polypectomy site appeared clean, without any sign of residual polyp nor significant bleeding. I did not visualize any other polyps, colitis, or angiodysplasias. There was a mild amount of diverticulosis in the left colon. A normal anastomosis was seen distally at approximately 10 cm. It appeared normal. The scope was able to be retroflexed, visualizing internal hemorrhoids, but no other pathology. The scope was straightened and withdrawn from the patient. He tolerated the procedure well and was returned to the recovery area in stable condition. IMPRESSION: 1. Small colon polyp. 2. Diverticulosis. 3. Internal hemorrhoids. PLAN: The results of the pathology will be checked. I would recommend a repeat colonoscopy in 5 years. He was advised not to use any aspirin or NSAIDs for 1 week. He will, otherwise, see me on a p.r.n. basis. MD NEL Hughes/LEOBARDO / [phone]
== END 2024-06-23 09:21 | disposition home or self-care (01) ==
PROVIDERS: PCP Internal Medicine; Visit Provider Internal Medicine
PROC: 0DJD8ZZ Inspection of Lower Intestinal Tract, Via Natural or Artificial Opening Endoscopic (ICD-10-PCS; CPT 45378; principal; 2024-06-23 07:30)
DX: Z12.11 Encounter for screening for malignant neoplasm of colon (principal); Z85.038 Personal history of other malignant neoplasm of large intestine; Z86.0101 Personal history of adenomatous and serrated colon polyps; K63.5 Polyp of colon; K57.30 Diverticulosis of large intestine without perforation or abscess without bleeding; K64.8 Other hemorrhoids; I10 Essential (primary) hypertension; E11.9 Type 2 diabetes mellitus without complications; Z90.49 Acquired absence of other specified parts of digestive tract; Z98.0 Intestinal bypass and anastomosis status; Z79.4 Long term (current) use of insulin; Z79.84 Long term (current) use of oral hypoglycemic drugs; Z79.85 Long-term (current) use of injectable non-insulin antidiabetic drugs; Z79.899 Other long term (current) drug therapy; Z87.891 Personal history of nicotine dependence
CPT/HCPCS: 45385; 82947; 88305; J2003; J2704

== ENCOUNTER 2024-08-11 07:32 | Outpatient (REF) | payer MEDICARE, SELFPAY ==
[2024-08-11 07:52] LABS: MANUAL DIFF FLAG NO
[2024-08-11 08:06] LABS: Appearance Urine Clear; Color Urine Yellow; Glucose Urine UA 100 mg/dL (Negative); Leukocyte Esterase Urine Negative (Negative); Nitrite Urine Negative (Negative); PH 6.5 (5.0-9.0); Specific Gravity - Urine 1.015 (1.005-1.025); Urine Blood Negative (Negative); Urine Ketones Negative (Negative); Urine Protein Negative (Neg-Trace)
[2024-08-11 08:06] LABS: Basophils Percent Auto 0.5 % (0-2); Eosinophils Absolute Auto 0.1 X10*3/uL (0.0-0.4); Eosinophils Percent Auto 1.4 % (0-4); Hematocrit 38.5 % (42.0-52.0); Hemoglobin 12.9 g/dl (14.0-18.0); Imm Gran Abs Auto 0.02 X10*3/uL (0.00-0.03); Imm Gran Pct Auto 0.3 % (0.0-0.4); Lymphocytes Absolute Auto 1.4 X10*3/uL (1.2-4.9); Lymphocytes Percent Auto 18.6 % (20-40); Mean Corpuscular HGB Conc 33.5 g/dl (31.0-36.0); Mean Corpuscular Hemoglobin 32.3 pg (27.0-33.0); Mean Corpuscular Volume 96.3 fL (80.0-98.0); Mean Platelet Volume 9.6 fL (9.4-12.4); Monocytes Absolute Auto 0.8 X10*3/uL (0.1-1.2); Monocytes Percent Auto 10.1 % (2-11); Neutrophils Absolute Auto 5.4 x10*3/uL (2.0-8.3); Neutrophils Percent Auto 69.1 % (45-73); Platelet Count 269 X10*3/uL (160-400); Red Cell Distribution Width 12.8 % (11.0-16.0); White Blood Count 7.8 X10*3/uL (4.8-10.8)
[2024-08-11 08:16] LABS: Estimated Average Glucose 160 mg/dL; Hemoglobin A1C 180.6878 umol/L; Hemoglobin A1c % 7.2 % (<6.0); Total Hemoglobin (HGBA1C) 3265.0103 umol/L
[2024-08-11 08:29] LABS: Microalbumin Urine < 5.0 mg/L
[2024-08-11 08:41] LABS: Alanine Aminotransferase 11 U/L (0-40); Albumin Level 4.2 g/dL (3.5-5.0); Alkaline Phosphatase 97 U/L (39-117); Anion Gap 12 (12-20); Aspartate Amino Transferase 20 U/L (5-37); Bilirubin Total 0.7 mg/dL (0.0-1.0); Blood Urea Nitrogen 15 mg/dL (9-16); Calcium 9.5 mg/dL (8.4-10.2); Carbon Dioxide 31 mmol/L (22-29); Chloride 99 mmol/L (96-108); Cholesterol 132 mg/dL (<200); Estimated Glomerular Filt Rate > 60; Glucose Fasting 119 mg/dL (60-99); HDL Cholesterol 36 mg/dL (>40); LDL Cholesterol Calculated 73 mg/dL (<100); Potassium 4.2 mmol/L (3.3-5.1); Sodium 138 mmol/L (135-145); Total Protein 7.2 g/dL (6.5-8.0); Triglycerides 118 mg/dL (<150)
[2024-08-11 08:57] LABS: TSH reflex Free T4 3.54 uIU/mL (0.32-4.0)
== END 2024-08-11 07:33 | disposition home or self-care (01) ==
LOC: HO.LAB 07:32
PROVIDERS: PCP Internal Medicine; Visit Provider Internal Medicine
DX: D64.9 Anemia, unspecified (principal); E11.9 Type 2 diabetes mellitus without complications; R30.0 Dysuria; E78.00 Pure hypercholesterolemia, unspecified; E55.9 Vitamin D deficiency, unspecified
CPT/HCPCS: 36415; 80053; 80061; 81003; 82306; 82570; 83036; 84443; 85025

== ENCOUNTER 2024-08-13 08:54 | Outpatient (AMB) | payer MEDICARE, SELFPAY ==
[2024-08-13 08:59] VITALS: BP 128/72; PULSE 110; O2SAT 95; BMI 33.3
--- NOTE | 2024-08-13 08:59 | A.OFFPC_ITS ---
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 Accompanied by: Self / Same As Patient Allergies No Known Allergies Allergy (Verified 08/13/24 09:11) Medication List - Last Reconciled 08/13/24 by Nakul Torres MD albuterol sulfate 90 mcg/actuation 2 inhalations inhalation Q4-6H PRN atorvastatin 10 mg (1/2 x 20 mg) PO BEDTIME cholecalciferol (vitamin D3) 50 mcg PO DAILY dulaglutide 1.5 mg (0.5 mL) subcut QWEEK 4 weeks hydrochlorothiazide 12.5 mg PO QAM 90 days insulin glargine U-300 conc (Toujeo SoloStar U-300 Insulin) 35 units (0.1167 mL) subcut DAILY lisinopril 5 mg PO DAILY metformin 1,000 mg PO BID 90 days pen needle, diabetic (BD Ultra-Fine Racquel Pen Needle) 1 ea subcut DAILY pioglitazone 30 mg PO DAILY 90 days vitamin B complex 1 cap PO DAILY Tobacco use date assessed: 08/13/24 Fall risk assessment: No Falls in past year Last assessed Fall Risk: 08/13/24 Dental Screening Dental Screen Date: 08/13/24 Did you have a dental visit in the last 12 months?: No Did you have a dental problem in the last 6 months where you did not have access to dental care?: No Was dental information given to patient?: No HPI DM, hyperlipidemia, HTN HPI Details Patient comes in today for his follow up visit States that he feels okay He denies any headaches or dizziness Denies any chest pains, no SOB No nausea/vomiting, no abdominal pain No change in bowel habits noted States that he had his repeat colonoscopy with Dr. Alvarez done early last month - was told that his colonoscopy came out normal Needs a few of his Rx refilled; states that his Atorvastatin was recently sent in for 10 mg but he was on 20 mg in the past He had his follow up labs done a couple of days ago - to discuss his results [facility] Medical History History of colon cancer Bilateral lower extremity edema Obesity (BMI 30-39.9) History of malignant neoplasm of rectum Vitamin D deficiency Anemia Pure hypercholesterolemia Benign essential hypertension Diabetes mellitus Surgical History (Updated 08/13/24 @ 09:33 by Nakul Torres MD) Hx of bilateral cataract extraction Hx of appendectomy Hx of colonoscopy History of colon resection (~08/23/04) Family History Father Medical history unknown Mother Hypertension Stroke Diabetes Cancer Social History Housing: Apartment Are you a primary care connector to a significant other at home: No Do you presently have visiting nurse or other home services: No Alcohol intake: never Patient Tobacco Use Status: Former Tobacco user e-Cigarette/Vaping Use: Never Used Second Hand Smoke Exposure: Yes service: No Current occupational status: retired Cognitive needs: No Hearing needs: No Vision needs: Yes (glasses) Questionnaire PHQ-9 Over the last 2 weeks, how often have you been bothered by any of the following problems? 1. Little interest or pleasure in doing things: not at all 2. Feeling down, depressed, or hopeless: not at all 3. Trouble falling or staying asleep, or sleeping too much: not at all 4. Feeling tired or having little energy: not at all 5. Poor appetite or overeating: not at all 6. Feeling bad about yourself - or that you are a failure or have let yourself or your family down: not at all 7. Trouble concentrating on things, such as reading the newspaper or watching television: not at all 8. Moving or speaking so slowly that other people could have noticed. Or the opposite - being so fidgety or restless that you have been moving around a lot more than usual: not at all 9. Thoughts that you would be better off or of hurting yourself in some way: not at all Total score: 0 Depression Screening Interpretation: Negative Depression Screening Done: Yes 52810 - PHQ-9 Billing: Yes Source: Developed by Drs. Henry Beebe, Lanette Interiano, Nikunj Clifton and colleagues, with an educational pablo from [employer]. Thrive Questionnaire Date Thrive assessed: 08/13/24 I am a: Patient What is your living situation today?: I have a steady place to live Within the past 12 months, did the food you bought not last and you didn't have the money to get more?: Never true Within the past 12 months, did you worry whether your food would run out before you got money to buy more?: Never true Do you have trouble paying for medicines?: No Do you have trouble getting transportation to medical appointments?: No Do you have trouble paying your heating and electricity bill?: No Do you have trouble taking care of your child, family member or friend?: No Do you have trouble with day-to-day activities such as bathing, preparing meals, shopping, managing finances, etc.?: No Are you currently unemployed and looking for a job?: No Are you interested in more education?: No Please select the resources that you would like help with: None Currently or been in a relationship where the following occur: No concerns reported THRIVE Score: 0 AUDIT C Alcohol Use Questionnaire (AUDIT-C) 1. How often do you have a drink containing alcohol?: Never 3. How often do you have six or more drinks on one occasion?: Never Total Score: 0 Score Reviewed/Action Taken: Yes NAYAN-7 AMB Questionnaire NAYAN-7 Date NAYAN - 7 assessed: 08/13/24 Feeling nervous, anxious, or on edge: 0 = Not at all Not being able to stop or control worryin = Not at all Worrying too much about different things: 0 = Not at all Trouble relaxin = Not at all Being so restless that it is hard to sit still: 0 = Not at all Becoming easily annoyed or irritable: 0 = Not at all Feeling afraid as if something awful might happen: 0 = Not at all Total NAYAN-7 score (0-4 normal; 5-9 mild; 10-14 moderate; 15-21 severe): 0 Source: Developed by Drs. Henry Beebe, Lanette Interiano, Nikunj Clifton and colleagues, with an educational pablo from [employer]. Review of Systems Const Denies chills, Reports difficulty sleeping (at times), Denies fatigue, Denies fever(s) and Denies headache(s) ENT Denies dysphagia, Denies dizziness, Denies otalgia, Denies headache(s), Denies neck pain, Denies odynophagia and Denies sore throat Card Denies chest pain, Denies irregular heart rhythm, Denies palpitations and Denies dyspnea Resp Denies chest congestion, Denies cough and Denies dyspnea GI Denies abdominal pain, Denies constipation, Denies dysphagia, Denies heartburn, Denies diarrhea, Denies nausea, Denies odynophagia and Denies vomiting Denies difficulty urinating, Denies dysuria, Denies nocturia and Denies urinary frequency Musc Denies back pain, Denies arthralgias and Denies neck pain Skin/Breast Denies rash Neuro Denies dizziness, Denies headache(s) and Denies paresthesias Psych Denies anxiety Endo Denies fatigue and Denies palpitations Physical exam (Primary Care) Vital Signs: Last Vital Signs Pulse 110 H 08/13/24 08:59 BP 128/72 08/13/24 08:59 Pulse Ox 95 08/13/24 08:59 Oxygen Delivery Method Room Air 08/13/24 08:59 BMI result Body Mass Index 33.3 Tobacco/Smoking Status: Tobacco use Status Tobacco use date assessed 08/13/24 08/13/24 09:04 Patient Tobacco Use Status Former Tobacco user 08/13/24 09:04 e-Cigarette/Vaping Use Never Used 08/13/24 09:04 PHQ-9: PHQ-9 Score PHQ-9: Total score 0 08/13/24 09:04 Depression Screening Interpretation: Negative Thrive Assessment: Date of Thrive Assessment Date Thrive assessed 08/13/24 08/13/24 09:04 Currently or been in a relationship where the following occur: No concerns reported Const General: no acute distress and alert HENMT Ears: TM's normal bilaterally and EAC's normal Throat: Yes posterior oropharynx normal and Yes tonsils normal (no TP congestion) Neck Neck: Yes no lymphadenopathy and Yes supple Thyroid: Thyroid normal Resp Auscultation: clear to auscultation bilaterally, no rales and no wheezes Cardio Rate: regular rate Rhythm: regular rhythm Heart sounds: no murmurs GI Palpation (GI): Soft to palpation and nontender Auscultation: normal bowel sounds General: Yes no CVA tenderness Back/Spine/Pelvis Back: no CVA tenderness Thoracic/Lumbar Spine: No lumbar spinal tenderness Skin Rashes: no rashes Extrem General: Yes no clubbing, cyanosis or edema Results Reviewed Results Reviewed: Laboratory Tests 08/11/24 08/11/24 07:49 07:50 WBC 7.8 Hgb 12.9 L Hct 38.5 L Plt Count 269 Sodium 138 Potassium 4.2 Creatinine 0.86 Estimated GFR > 60 Fasting Glucose 119 H Hemoglobin A1c % 7.2 H Calcium 9.5 AST 20 ALT 11 Triglycerides 118 Cholesterol 132 LDL Cholesterol, Calc 73 HDL Cholesterol 36 L 25-OH Vitamin D Total 50.0 TSH 3.54 Ur Specific [place] 1.015 Urine Protein Negative Urine Glucose (UA) 100 H Urine Blood Negative Urine Nitrite Negative Ur Leukocyte Esterase Negative Coding Level of Care Code Est Pt Level 4 (82458) Complex EM visit Add On G2211 Diagnoses Type 2 diabetes mellitus without complication, without long-term current use of insulin E11.9 Diabetes mellitus type: type 2 Diabetes mellitus superintendent container terminal insulin use: without superintendent container terminal use Diabetes mellitus complication status: without complication Pure hypercholesterolemia E78.00 Benign essential hypertension I10 Anemia, unspecified type D64.9 Anemia type: unspecified type Vitamin D deficiency E55.9 Bilateral lower extremity edema R60.0 Diabetic autonomic neuropathy associated with type 2 diabetes mellitus E11.43 Diabetes mellitus type: type 2 History of malignant neoplasm of rectum Z85.048 Obesity (BMI 30-39.9) E66.9 Additional Codes PHQ-9 - 46815 - PHQ-9 Billing: Yes ([id number]) Assessment & Plan Assessment & Plan (1) Diabetes mellitus: Code(s): E11.9 - Type 2 diabetes mellitus without complications Category: Medical Qualifiers: Diabetes mellitus type: type 2 Diabetes mellitus superintendent container terminal insulin use: without mcc use Diabetes mellitus complication status: without complication Qualified Code(s): E11.9 - Type 2 diabetes mellitus without complications Plan: His HgbA1c remains at 7.2% on his labs done a couple of days ago (was also at 7.2% previously) - goal is <7.0% Reinforced diabetic diet Continue Pioglitazone 30 mg QD, Metformin 1000 mg BID, Toujeo Solostar 35 units SQ QD and Trulicity 1.5 mg SQ once a week He has been referred to endocrinology for further evaluation and management a couple of times over the past 2 years but states that he has been unable to get in to see them so far (2) Pure hypercholesterolemia: Code(s): E78.00 - Pure hypercholesterolemia, unspecified Category: Medical Plan: Results of his labs done a couple of days ago reviewed and discussed with patient Reinforced low cholesterol diet Continue Atorvastatin 20 mg QD - new Rx sent in to correct a 10 mg Rx sent in error previously Will recheck his labs and fasting lipids in 4 months for follow up (3) Benign essential hypertension: Code(s): I10 - Essential (primary) hypertension Category: Medical Plan: Reinforced low sodium diet - goal is systolic BP of at least 130 to 140 mm or less His blood pressure appears better controlled today Continue HCTZ 12.5 mg QD and Lisinopril 10 mg QD Patient again prefers not to have his Lisinopril dosage increased as he recalls feeling very dizzy and lightheaded frequently a few years ago when he was on 20 mg of Lisinopril and his dosage had to be cut back all the way to 5 mg daily at the time just to allow his symptoms to clear up Patient is reminded to continue monitoring his blood pressure regularly (4) Anemia: Code(s): D64.9 - Anemia, unspecified Category: Medical Qualifiers: Anemia type: unspecified type Qualified Code(s): D64.9 - Anemia, unspecified Plan: Stable Will continue to monitor his CBC regularly (5) Vitamin D deficiency: Code(s): E55.9 - Vitamin D deficiency, unspecified Category: Medical Plan: Continue Vitamin D3 2000 units QD (6) Bilateral lower extremity edema: Code(s): R60.0 - Localized edema Category: Medical Plan: This is most likely stasis edema - patient states that this has not been occurr ing as often as before Patient is encouraged again to elevate his legs and feet as often as he can throughout the day and advised that wearing compression/support stockings may help if his edema starts increasing again It appears that starting him on low dose HCTZ previously also helped address this issue better (7) Diabetic autonomic neuropathy: Code(s): E11.43 - Type 2 diabetes mellitus with diabetic autonomic (poly)neuropathy Category: Medical Qualifiers: Diabetes mellitus type: type 2 Qualified Code(s): E11.43 - Type 2 diabetes mellitus with diabetic autonomic (poly)neuropathy Plan: His EMG and NCV done back on 03/07/2023 revealed (+) moderately severe axonal sensory greater than motor peripheral neuropathy in the lower extremities bilaterally. EMG of the right L4-S1 innervated muscles are consistent with distal chronic neuropathic changes of neuropathy Have again advised patient that neuropathy is due to nerve damage and that other than Rx to help control/manage the symptoms, there is nothing we can give or prescribe to help treat or cure the condition Reminded again that the only thing we can do to control this is tight control of his blood sugar to minimize or halt the progression of this condition Patient states that his symptoms are mostly tolerable and do not really bother him too much and he prefers not to take any more medications at this time; states that he will call if his symptoms get significantly worse (8) History of malignant neoplasm of rectum: Code(s): Z85.048 - Personal history of other malignant neoplasm of rectum, rectosigmoid junction, and anus Category: Medical Plan: Follow up with GI (Dr. Alvarez) as scheduled for continuing surveillance Had repeat colonoscopy early last month on 06/23/2024 - colonoscopy came out normal (had a polyp that came out as a hyperplastic polyp on pathology); recommend repeat colonoscopy again in 5 years (2028) (9) Obesity (BMI 30-39.9): Code(s): E66.9 - Obesity, unspecified Category: Medical Plan: Reinforced diet/exercise as tolerated/lose weight Plan Follow up in 4 months Orders: Orders Lipid Panel 4 Months E78.00 - Pure hypercholesterolemia, unspecified TSH reflex Free T4 4 Months E78.00 - Pure hypercholesterolemia, unspecified Vitamin D 25-OH Total 4 Months E55.9 - Vitamin D deficiency, unspecified Hemoglobin A1c 4 Months E11.9 - Type 2 diabetes mellitus without complications Complete Blood Count Auto Diff 4 Months D64.9 - Anemia, unspecified Comprehensive [place]. Panel Fast 4 Months E78.00 - Pure hypercholesterolemia, unspecified Microalbumin, Random (w Creat) 4 Months E11.9 - Type 2 diabetes mellitus without complications Medications: Changed From atorvastatin 10 mg (1/2 x 20 mg) PO BEDTIME 90 tabs 0RF To atorvastatin 20 mg PO BEDTIME 90 days 90 tabs 3RF From lisinopril 10 mg PO DAILY To lisinopril 10 mg PO DAILY 90 days 90 tabs 3RF Refilled pioglitazone 30 mg PO DAILY 90 days 90 tabs 1RF E11.9 - Type 2 diabetes mellitus without complications
== END 2024-08-13 09:32 | disposition home or self-care (01) ==
PROVIDERS: PCP Internal Medicine; Visit Provider Internal Medicine
DX: E11.43 Type 2 diabetes mellitus with diabetic autonomic (poly)neuropathy (principal); E78.00 Pure hypercholesterolemia, unspecified; I10 Essential (primary) hypertension; D64.9 Anemia, unspecified; E55.9 Vitamin D deficiency, unspecified; R60.0 Localized edema; Z85.048 Personal history of other malignant neoplasm of rectum, rectosigmoid junction, and anus; E66.9 Obesity, unspecified

== ENCOUNTER → 2024-08-13 08:54 | Outpatient (BNVA) | payer MEDICARE, SELFPAY | PROVIDERS: PCP Internal Medicine; Visit Provider Internal Medicine | DX: E11.43 Type 2 diabetes mellitus with diabetic autonomic (poly)neuropathy (principal); E78.00 Pure hypercholesterolemia, unspecified; I10 Essential (primary) hypertension; D64.9 Anemia, unspecified; E55.9 Vitamin D deficiency, unspecified; E66.9 Obesity, unspecified; Z85.048 Personal history of other malignant neoplasm of rectum, rectosigmoid junction, and anus | CPT/HCPCS: 96127; 99212 ==

== ENCOUNTER 2024-11-08 07:23 | Outpatient (REF) | payer MEDICARE, SELFPAY ==
--- OUTSIDE RECORDS SUMMARY | 2024-11-08 07:25 | XMS_ITS ---
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 Name Role Phone Brian LAGUERRE, [place] Primary Care Provider Henry Greco Unavailable [phone] ALLERGIES No Known Allergies REASON FOR VISIT Patient presents today for a recall colonoscopy MEDICATIONS Medication SIG (Take, Route, Frequency, Duration) Notes Start Date End Date Status Toujeo SoloStar 300 UNIT/ML Subcutaneous for 39 Active Lisinopril 5 MG 1 tablet Orally Once a day Active Vitamin D 2000 UNIT 1 tablet Orally Once a day for 30 day(s) Active Vitamin B Complex - as directed Orally once a day Active Atorvastatin Calcium 10 MG 1 tablet Orally Once a day for 30 day(s) Active metFORMIN HCl 1000 MG Oral for 90 Active Pioglitazone HCl 30 MG TAKE 1 TABLET BY MOUTH ONCE DAILY Oral for 90 E119,Unavailab le Active Trulicity 0.75 MG/0.5ML Subcutaneous for 28 Active VITAL SIGNS BMI 34.28 kg/m2 02/26/2024 Blood pressure systolic 00 mm Hg 02/26/20 24 Blood pressure diastolic 00 mm Hg 024 Height 74 in 02/26/2024 Weight 267 lbs 02/26/2024 Encounters Encounter Location Date Provider Diagnosis [facility] [address] [place] [address] 02/26/2024 Henry Alvarez History of colon can cer Z85.038 ; Preprocedural examination Z01.818 ; History of adenomatous polyp of colon Z86.010 and Encounter for screening for malignant neoplasm of colon Z12.11 ASSESSMENTS Encounter Date Diagnosis Assessment Notes Treatment Notes Treatment Clinical Notes 02/26/2024 History of colon cancer (ICD-10 - Z85.038) 02/26/2024 Preprocedural examination (ICD-10 - Z01.818) 02/26/2024 History of adenomatous polyp of colon (ICD-10 - Z86.010) 02/26/2024 Encounter for screening for malignant neoplasm of colon (ICD-10 - Z12.11) DO NOT TAKE TRULICITY FOR AT LEAT 7 DAYS BEFORE THE COLONOSCOPY TAKE 1/2 OF THE USUAL TOUJEO DOSE THE NIGHT BEFORE THE COLONOSCOPY DO NOT TAKE THE PIOGLITAZONE OR THE METFORMIN THE NIGHT BEFORE NOR ON THE MORNING OF THE COLONOSCOPY PLAN OF TREATMENT Treatment Notes Assessment Notes Encounter for screening for malignant neoplasm of colon DO NOT TAKE TRULICITY FOR AT LEAT 7 DAYS BEFORE THE COLONOSCOPY TAKE 1/2 OF THE USUAL TOUJEO DOSE THE NIGHT BEFORE THE COLONOSCOPY DO NOT TAKE THE PIOGLITAZONE OR THE METFORMIN THE NIGHT BEFORE NOR ON THE MORNING OF THE COLONOSCOPY Future Test Test Name Order Date COLONOSCOPY 02/26/2024 Next Appt Details Follow Up: prn, Reason: Progress Notes * Examination Category Sub-Category Detail Notes General Examination GENERAL APPEARANCE: pleasant , well nourished, well developed, in no acute distress EYES: sclera non-icteric NECK/THYROID: no cervical lymphade nopathy, neck supple HEART: S1, S2 normal LUNGS: clear to auscultatio n bilaterally ABDOMEN: normal bowel sounds, no guarding or rigidity, no hepatosplenomegaly, no masses palpable, soft, nontender, nondistended. NEUROLOGIC: alert and oriented SKIN: nonjaundiced, no spi jarvis angiomata. EXTREMITIES: no edema ORAL CAVITY: mucosa moist
--- OUTSIDE RECORDS SUMMARY | 2024-11-08 07:26 | XMS_ITS | Patient Health Record ---
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 Name Role Phone Brian LAGUERRE, Nakul Primary Care Provider Henry Greco [phone] ALLERGIES No Known Allergies RESULTS Component Value Reference Range Notes Pathology (Not yet reviewed by provider) Interpretation: Performing Lab:[facility], [address] [place] [id number] Notes/Report: Glucose, Whole Blood Reviewed date:06/23/2024 05:46:37 PM Interpretation: Performing Lab:[facility], [address] [place] [id number] Notes/Report: Glucose, Whole Blood 123 60-115 mg/dL METER # : [id number] REASON FOR REFERRAL No Information MEDICATIONS Medication SIG (Take, Route, Frequency, Duration) [...] Trulicity 0.75 MG/0.5ML Subcutaneous for 28 Active IMMUNIZATIONS Vaccine Route Administration Date Status Comme nts Influenza Unknown 06/17/2018 Administered SOCIAL HISTORY Sex Assigned At : Social History Observation Description Sex Assigned At Unknown PROBLEMS Problem Type ICD Code Onset Dates Problem Status W/U Status Risk SNOMED Code Notes Problem Encounter for screening for malignant neoplasm of colon (Z12.11) Active confirmed 679902382 Problem History of adenomatous polyp of colon (Z86.010) Active confirmed 383704424 Problem Diverticulosis of large intestine without perforation or abscess without bleeding (K57.30) Active confirmed Diverticul ar disease of colon (331033254) Problem Preprocedural examination (Z01.818) Active confirmed [id number] Problem History of colon cancer (Z85.038) Active confirmed 551861749 VITAL SIGNS Blood pressure diastolic 00 mm Hg 02/26/2024 Height 74 in 02/26/2024 Blood pressure systolic 00 mm Hg 02/26/2024 Weight 267 lbs 02/26/2024 BMI 34.28 kg/m2 02/26/2024 Encounters Encounter Location Date Provider Diagnosis [facility] [place] Outpatient [address], [place] [id number] 06/23/2024 Henry Alvarez Colon cancer screeni ng Z12.11 ; Colon polyps K63.5 ; Diverticulosis of large intestine without perforation or abscess without bleeding K57.30 and Other hemorrhoids K64.8 [facility] [address] [place] [address] 02/26/2024 Henry Alvarez History of colon can cer Z85.038 ; Preprocedural examination Z01.818 ; History of adenomatous polyp of colon Z86.010 and Encounter for screening for malignant neoplasm of colon Z12.11 ASSESSMENTS Encounter Date Diagnosis Assessment Notes Treatment Notes Treatment Clinical Notes 06/23/2024 Colon cancer screening (ICD-10 - Z12.11) 06/23/2024 Colon polyps (ICD-10 - K63.5) 02/26/2024 Preprocedural examination (ICD-10 - Z01.818) 02/26/2024 History of colon cancer (ICD-10 - Z85.038) 06/23/2024 Diverticulosis of large intestine without perforation or abscess without bleeding (ICD-10 - K57.30) 02/26/2024 History of adenomatous polyp of colon (ICD-10 - Z86.010) 06/23/2024 Other hemorrhoids (ICD-10 - K64.8) 02/26/2024 Encounter for screening for malignant neoplasm of colon (ICD-10 - Z12.11) DO NOT TAKE TRULICITY FOR AT LEAT 7 DAYS BEFORE THE COLONOSCOPY TAKE 1/2 OF THE USUAL TOUJEO DOSE THE NIGHT BEFORE THE COLONOSCOPY DO NOT TAKE THE PIOGLITAZONE OR THE METFORMIN THE NIGHT BEFORE NOR ON THE MORNING OF THE COLONOSCOPY PLAN OF TREATMENT Pending Test Test Name Order Date Pathology 06/23/2024 Future Test Test Name Order Date COLONOSCOPY 04/15/2013 COLONOSCOPY 10/10/2018 COLONOSCOPY 02/26/2024 Insurance Providers Payer Name Payer Address Payer Phone Subscriber Number Group Number Insured Name Patient Relationship to Insured Coverage Start Date Coverage End Date [facility] [address] [place] [address] [phone] [id number] VETO GUTIERREZ Self - patient is the insured MEDICAL (GENERAL) HISTORY Medical History History ICD Code History of colon cancer--he had a malignant colon polyp removed on his screening colonoscopy July 2004--this revealed a moderately differentiated adenocarcinoma, with tumor invasion into the submucosa which was present within 0.5 mm of the margin of resection, and lymphatic invasion could not be definitively excluded-as such, he underwent a laparoscopic sigmoid resection with Dr. Rosas as below He had small tubular adenoma s removed in 2005 and 2006 during followup colonoscopies Colonoscopy in 12-24-2008, [facility] was negative for polyps; colonoscopy in 06/2013 with one tubular adenoma removed Followup screening Colon[place] py in November of 2018 with 2 small tubular adenomas removed HTN IDDM Denies [place],CVA,Lung disease,renal disease Surgical History Surgery Date(Month/Year) appendectomy Laparoscopic sigmoid resecti on by Dr. Rosas in 2003 for a malignant polyp as above-no residual cancer nor invasion--therefore, no chemotherapy required Bilateral catracts 03/2024
[2024-11-08 07:52] LABS: MANUAL DIFF FLAG NO
[2024-11-08 09:11] LABS: Basophils Percent Auto 0.5 % (0-2); Eosinophils Absolute Auto 0.1 X10*3/uL (0.0-0.4); Eosinophils Percent Auto 1.7 % (0-4); Hematocrit 40.7 % (42.0-52.0); Hemoglobin 13.3 g/dl (14.0-18.0); Imm Gran Abs Auto 0.02 X10*3/uL (0.00-0.03); Imm Gran Pct Auto 0.3 % (0.0-0.4); Lymphocytes Absolute Auto 1.6 X10*3/uL (1.2-4.9); Lymphocytes Percent Auto 21.7 % (20-40); Mean Corpuscular HGB Conc 32.7 g/dl (31.0-36.0); Mean Corpuscular Hemoglobin 31.4 pg (27.0-33.0); Mean Platelet Volume 9.8 fL (9.4-12.4); Monocytes Absolute Auto 0.8 X10*3/uL (0.1-1.2); Monocytes Percent Auto 10.1 % (2-11); Neutrophils Absolute Auto 4.9 x10*3/uL (2.0-8.3); Neutrophils Percent Auto 65.7 % (45-73); Platelet Count 300 X10*3/uL (160-400); Red Blood Count 4.24 X10*6/uL (4.60-5.80); White Blood Count 7.5 X10*3/uL (4.8-10.8)
[2024-11-08 09:18] LABS: Estimated Average Glucose 151 mg/dL; Hemoglobin A1C 179.9181 umol/L; Hemoglobin A1c % 6.9 % (<6.0)
[2024-11-08 09:36] LABS: Creatinine Urine 181.07 mg/dL; Microalbum/Creatinine Ratio Ur 9.3 ug/mg cr (<30)
[2024-11-08 10:07] LABS: Alanine Aminotransferase 14 U/L (0-40); Albumin Level 4.3 g/dL (3.5-5.0); Alkaline Phosphatase 91 U/L (39-117); Anion Gap 14 (12-20); Aspartate Amino Transferase 23 U/L (5-37); Bilirubin Total 0.7 mg/dL (0.0-1.0); Blood Urea Nitrogen 29 mg/dL (9-16); Calcium 9.5 mg/dL (8.4-10.2); Carbon Dioxide 28 mmol/L (22-29); Chloride 103 mmol/L (96-108); Cholesterol 124 mg/dL (<200); Estimated Glomerular Filt Rate > 60; Glucose Fasting 140 mg/dL (60-99); HDL Cholesterol 36 mg/dL (>40); LDL Cholesterol Calculated 73 mg/dL (<100); Potassium 4.8 mmol/L (3.3-5.1); Sodium 140 mmol/L (135-145); Total Protein 7.6 g/dL (6.5-8.0); Triglycerides 77 mg/dL (<150)
[2024-11-08 10:12] LABS: TSH reflex Free T4 1.87 uIU/mL (0.32-4.0); Vitamin D 25-OH Total 53.6 ng/mL (>30)
== END 2024-11-08 07:24 | disposition home or self-care (01) ==
LOC: HO.LAB 07:23
PROVIDERS: PCP Internal Medicine; Visit Provider Internal Medicine
DX: E78.00 Pure hypercholesterolemia, unspecified (principal); D64.9 Anemia, unspecified; E11.9 Type 2 diabetes mellitus without complications; E55.9 Vitamin D deficiency, unspecified
CPT/HCPCS: 36415; 80053; 80061; 82043; 82306; 82570; 83036; 84443; 85025

== ENCOUNTER 2024-11-11 08:54 | Outpatient (AMB) | payer MEDICARE, SELFPAY ==
--- NOTE | 2024-11-11 09:02 | MHC.PC.OV ---
Vital Signs 11/11/24 09:04 Height 6 ft 2 in Weight 260 lb 4 oz BMI 33.4 BP 122/78 Blood Pressure Location Lt brachial Position Sitting Pulse 115 H Pulse Source Pulse Oximeter Pulse Oximetry (%) 95 Oxygen Delivery Method Room Air Intake Visit Reasons: Annual Exam Climatology Professor Required: No Accompanied by: Self / Same As Patient Allergies No Known Allergies Allergy (Verified 11/11/24 09:18) Medication List - Last Reconciled 11/11/24 by Nakul Torres MD albuterol sulfate 90 mcg/actuation 2 inhalations inhalation Q4-6H PRN atorvastatin 20 mg PO BEDTIME 90 days cholecalciferol (vitamin D3) 50 mcg PO DAILY dulaglutide 1.5 mg (0.5 mL) subcut QWEEK 4 weeks hydrochlorothiazide 12.5 mg PO QAM 90 days insulin glargine U-300 conc (Toujeo SoloStar U-300 Insulin) 35 units (0.1167 mL) subcut DAILY lisinopril 10 mg PO DAILY 90 days metformin 1,000 mg PO BID 90 days pen needle, diabetic (BD Ultra-Fine Racquel Pen Needle) 1 ea subcut DAILY pioglitazone 30 mg PO DAILY 90 days vitamin B complex 1 cap PO DAILY Tobacco use date assessed: 11/11/24 Fall risk assessment: No Falls in past year Last assessed Fall Risk: 11/11/24 Dental Screening Dental Screen Date: 11/11/24 Did you have a dental visit in the last 12 months?: No Did you have a dental problem in the last 6 months where you did not have access to dental care?: No Was dental information given to patient?: No HPI Annual Exam HPI Details Patient comes in today for his annual physical examination States that he feels okay He denies any headaches or dizziness Denies any chest pains, no SOB No nausea/vomiting, no abdominal pain No change in bowel habits noted Denies any acute urinary symptoms Needs a few of his Rx refilled He had his follow up labs done a few days ago - to discuss his results He is up-to-date with his colon cancer screening - he is recommended to have his repeat colonoscopy done in 2028 [facility] Medical History History of colon cancer Bilateral lower extremity edema Obesity (BMI 30-39.9) History of malignant neoplasm of rectum Vitamin D deficiency Anemia Pure hypercholesterolemia Benign essential hypertension Diabetes mellitus Surgical History Hx of bilateral cataract extraction Hx of appendectomy Hx of colonoscopy History of colon resection (~08/23/04) Family History Father Medical history unknown Mother Hypertension Stroke Diabetes Cancer Social History Housing: Apartment Are you a primary manager primary care to a significant other at home: No Do you presently have visiting nurse or other home services: No Alcohol intake: never Patient Tobacco Use Status: Former Tobacco user e-Cigarette/Vaping Use: Never Used Second Hand Smoke Exposure: Yes service: No Current occupational status: retired Cognitive needs: No Hearing needs: No Vision needs: Yes (glasses) Questionnaire PHQ-9 Over the last 2 weeks, how often have you been bothered by any of the following problems? 1. Little interest or pleasure in doing things: not at all 2. Feeling down, depressed, or hopeless: not at all 3. Trouble falling or staying asleep, or sleeping too much: not at all 4. Feeling tired or having little energy: not at all 5. Poor appetite or overeating: not at all 6. Feeling bad about yourself - or that you are a failure or have let yourself or your family down: not at all 7. Trouble concentrating on things, such as reading the newspaper or watching television: not at all 8. Moving or speaking so slowly that other people could have noticed. Or the opposite - being so fidgety or restless that you have been moving around a lot more than usual: not at all 9. Thoughts that you would be better off or of hurting yourself in some way: not at all Total score: 0 Depression Screening Interpretation: Negative Depression Screening Done: Yes 55456 - PHQ-9 Billing: Yes Source: Developed by Drs. Henry Beebe, Lanette Interiano, Nikunj Clifton and colleagues, with an educational pablo from [employer]. Thrive Questionnaire Date Thrive assessed: 11/11/24 I am a: Patient What is your living situation today?: I have a steady place to live Within the past 12 months, did the food you bought not last and you didn't have the money to get more?: Never true Within the past 12 months, did you worry whether your food would run out before you got money to buy more?: Never true Do you have trouble paying for medicines?: No Do you have trouble getting transportation to medical appointments?: No Do you have trouble paying your heating and electricity bill?: No Do you have trouble taking care of your child, family member or friend?: No Do you have trouble with day-to-day activities such as bathing, preparing meals, shopping, managing finances, etc.?: No Are you currently unemployed and looking for a job?: No Are you interested in more education?: No Please select the resources that you would like help with: None Currently or been in a relationship where the following occur: No concerns reported THRIVE Score: 0 AUDIT C Alcohol Use Questionnaire (AUDIT-C) 1. How often do you have a drink containing alcohol?: Never 3. How often do you have six or more drinks on one occasion?: Never Total Score: 0 Score Reviewed/Action Taken: Yes NAYAN-7 AMB Questionnaire NAYAN-7 Date NAYAN - 7 assessed: 11/11/24 Feeling nervous, anxious, or on edge: 0 = Not at all Not being able to stop or control worryin = Not at all Worrying too much about different things: 0 = Not at all Trouble relaxin = Not at all Being so restless that it is hard to sit still: 0 = Not at all Becoming easily annoyed or irritable: 0 = Not at all Feeling afraid as if something awful might happen: 0 = Not at all Total NAYAN-7 score (0-4 normal; 5-9 mild; 10-14 moderate; 15-21 severe): 0 Source: Developed by Drs. Henry Beebe, Lanette Interiano, Nikujn Clifton and colleagues, with an educational pablo from [employer]. Review of Systems Const Denies chills, Reports difficulty sleeping (at times), Denies fatigue, Denies fever(s) and Denies headache(s) ENT Denies dysphagia, Denies dizziness, Denies otalgia, Denies headache(s), Denies neck pain, Denies odynophagia and Denies sore throat Card Denies chest pain, Denies irregular heart rhythm, Denies palpitations and Denies dyspnea Resp Denies chest congestion, Denies cough and Denies dyspnea GI Denies abdominal pain, Denies constipation, Denies dysphagia, Denies heartburn, Denies diarrhea, Denies nausea, Denies odynophagia and Denies vomiting Denies difficulty urinating, Denies dysuria, Denies nocturia and Denies urinary frequency Musc Denies back pain, Denies arthralgias and Denies neck pain Skin/Breast Denies rash Neuro Denies dizziness, Denies headache(s) and Denies paresthesias Psych Denies anxiety Endo Denies fatigue and Denies palpitations Physical exam (Primary Care) Vital Signs: Last Vital Signs Pulse 115 H 11/11/24 09:04 BP 122/78 11/11/24 09:04 Pulse Ox 95 11/11/24 09:04 Oxygen Delivery Method Room Air 11/11/24 09:04 BMI result Body Mass Index 33.4 Tobacco/Smoking Status: Tobacco use Status Tobacco use date assessed 11/11/24 11/11/24 09:10 Patient Tobacco Use Status Former Tobacco user 11/11/24 09:10 e-Cigarette/Vaping Use Never Used 11/11/24 09:10 PHQ-9: PHQ-9 Score PHQ-9: Total score 0 11/11/24 09:10 Depression Screening Interpretation: Negative Thrive Assessment: Date of Thrive Assessment Date Thrive assessed 11/11/24 11/11/24 09:10 Currently or been in a relationship where the following occur: No concerns reported Const General: no acute distress, alert and awake Orientation/consciousness: patient oriented x3 HENMT Head: Yes normocephalic and Yes atraumatic Ears: external ears normal, TM's normal bilaterally and EAC's normal General nose exam: No nasal discharge present Face and sinus: Yes normal facial exam and Yes sinuses nontender Teeth and gingiva: dentition normal Throat: Yes posterior oropharynx normal and Yes tonsils normal (no TP congestion) Eyes Eyelids: Yes eyelids normal Conjunctivae: conjunctivae normal Pupils: Equal, round and reactive pupils present EOM: EOMs intact bilaterally Neck Neck: Yes supple and No lymphadenopathy Thyroid: Thyroid normal Resp Auscultation: clear to auscultation bilaterally, no rales and no wheezes Cardio Rate: regular rate Rhythm: regular rhythm Heart sounds: no murmurs GI Palpation (GI): Soft to palpation, nontender and No hepatosplenomegaly present Auscultation: normal bowel sounds General: Yes no CVA tenderness Back/Spine/Pelvis Back: no CVA tenderness Thoracic/Lumbar Spine: thoracic and lumbar spine normal to inspection Skin Lesions: no lesions Rashes: no rashes Neuro General: patient oriented x3, moves all extremities, no focal motor deficits and CN's II-XI intact bilaterally Cranial nerves: Yes Equal, round and reactive pupils present Cognition (Neuro): normal cognition Gait exam (Neuro): Normal gait present Extrem General: Yes no clubbing, cyanosis or edema Results Reviewed Results Reviewed: Laboratory Tests 08/11/24 11/08/24 11/08/24 07:50 07:48 07:51 WBC 7.5 Hgb 13.3 L Hct 40.7 L Plt Count 300 Creatinine 1.01 Estimated GFR > 60 Fasting Glucose 140 H Hemoglobin A1c % 6.9 H Calcium 9.5 AST 23 ALT 14 Triglycerides 77 Cholesterol 124 LDL Cholesterol, Calc 73 HDL Cholesterol 36 L 25-OH Vitamin D Total 53.6 TSH 1.87 Ur Specific [place] 1.015 Urine Protein Negative Urine Glucose (UA) 100 H Urine Blood Negative Urine Nitrite Negative Ur Leukocyte Esterase Negative Microalb/Creat Ratio 9.3 Coding Level of Care Code Est Pt Level 4 (67481) Diagnoses Type 2 diabetes mellitus without complication, without long-term current use of insulin E11.9 Diabetes mellitus type: type 2 Diabetes mellitus longterm insulin use: without termite exterminator helper use Diabetes mellitus complication status: without complication Pure hypercholesterolemia E78.00 Benign essential hypertension I10 Anemia, unspecified type D64.9 Anemia type: unspecified type Vitamin D deficiency E55.9 Bilateral lower extremity edema R60.0 Diabetic autonomic neuropathy associated with type 2 diabetes mellitus E11.43 Diabetes mellitus type: type 2 History of malignant neoplasm of rectum Z85.048 Obesity (BMI 30-39.9) E66.9 Additional Codes PHQ-9 - 61064 - PHQ-9 Billing: Yes ([id number]) Assessment & Plan Assessment & Plan (1) Diabetes mellitus: Code(s): E11.9 - Type 2 diabetes mellitus without complications Category: Medical Qualifiers: Diabetes mellitus type: type 2 Diabetes mellitus longterm insulin use: without longterm use Diabetes mellitus complication status: without complication Qualified Code(s): E11.9 - Type 2 diabetes mellitus without complications Plan: His HgbA1c was at 6.9% on his labs done a few days ago (was previously at 7.2% a few months ago) - goal is <7.0% Reinforced diabetic diet Continue Pioglitazone 30 mg QD, Metformin 1000 mg BID, Toujeo Solostar 35 units SQ QD and Trulicity 1.5 mg SQ once a week He has been referred to endocrinology for further evaluation and management a couple of times over the past 2 years but states that he has been unable to get in to see them and since his diabetes is well-controlled, would like to hold off on this for now (2) Pure hypercholesterolemia: Code(s): E78.00 - Pure hypercholesterolemia, unspecified Category: Medical Plan: Results of his labs done a few days ago reviewed and discussed with patient Reinforced low cholesterol diet Continue Atorvastatin 20 mg QD Will recheck his labs and fasting lipids in a couple of months for follow up (3) Benign essential hypertension: Code(s): I10 - Essential (primary) hypertension Category: Medical Plan: Reinforced low sodium diet - goal is systolic BP of at least 130 to 140 mm or less Continue HCTZ 12.5 mg QD and Lisinopril 10 mg QD Patient is reminded to continue monitoring his blood pressure regularly (4) Anemia: Code(s): D64.9 - Anemia, unspecified Category: Medical Qualifiers: Anemia type: unspecified type Qualified Code(s): D64.9 - Anemia, unspecified Plan: Stable Will continue to monitor his CBC regularly (5) Vitamin D deficiency: Code(s): E55.9 - Vitamin D deficiency, unspecified Category: Medical Plan: Continue Vitamin D3 2000 units QD (6) Bilateral lower extremity edema: Code(s): R60.0 - Localized edema Category: Medical Plan: This is most likely stasis edema - patient states that this has not been occurring as often as before Patient is encouraged again to elevate his legs and feet as often as he can throughout the day and advised that wearing compression/support stockings may help if his edema starts increasing again It appears that starting him on low dose HCTZ previously also helped address this issue better (7) Diabetic autonomic neuropathy: Code(s): E11.43 - Type 2 diabetes mellitus with diabetic autonomic (poly)neuropathy Category: Medical Qualifiers: Diabetes mellitus type: type 2 Qualified Code(s): E11.43 - Type 2 diabetes mellitus with diabetic autonomic (poly)neuropathy Plan: His EMG and NCV done back on 03/07/2023 revealed (+) moderately severe axonal sensory greater than motor peripheral neuropathy in the lower extremities bilaterally. EMG of the right L4-S1 innervated muscles are consistent with distal chronic neuropathic changes of neuropathy Have again advised patient that neuropathy is due to nerve damage and that other than Rx to help control/manage the symptoms, there is nothing we can give or prescribe to help treat or cure the condition Reminded again that the only thing we can do to control this is tight control of his blood sugar to minimize or halt the progression of this condition Patient states that his symptoms are mostly tolerable and do not really bother him too much and he prefers not to take any more medications at this time; states that he will call if his symptoms get significantly worse (8) History of malignant neoplasm of rectum: Code(s): Z85.048 - Personal history of other malignant neoplasm of rectum, rectosigmoid junction, and anus Category: Medical Plan: Follow up with GI (Dr. Alvarez) as scheduled for continuing surveillance He had his repeat colonoscopy last year on 06/23/2024 - colonoscopy came out normal (had a polyp that came out as a hyperplastic polyp on pathology); recommend repeat colonoscopy again in 5 years (2028) (9) Obesity (BMI 30-39.9): Code(s): E66.9 - Obesity, unspecified Category: Medical Plan: Reinforced diet/exercise as tolerated/lose weight Plan Follow up as scheduled in December 2024 Orders: Orders Comprehensive [place]. Panel Fast 01/04/25 E78.00 - Pure hypercholesterolemia, unspecified Lipid Panel 01/04/25 E78.00 - Pure hypercholesterolemia, unspecified Microalbumin, Random (w Creat) 01/04/25 E11.9 - Type 2 diabetes mellitus without complications Hemoglobin A1c 01/04/25 E11.9 - Type 2 diabetes mellitus without complications Medications: Refilled dulaglutide 1.5 mg (0.5 mL) subcut QWEEK 4 weeks 2 mL 3RF hydrochlorothiazide 12.5 mg PO QAM 90 days 90 tabs 3RF insulin glargine U-300 conc (Toujeo SoloStar U-300 Insulin) 35 units (0.1167 mL) subcut DAILY 6 mL 3RF E11.9 - Type 2 diabetes mellitus without complications metformin 1,000 mg PO BID 90 days 180 tabs 3RF pioglitazone 30 mg PO DAILY 90 days 90 tabs 3RF E11.9 - Type 2 diabetes mellitus without complications
[2024-11-11 09:04] VITALS: BP 122/78; PULSE 115; O2SAT 95; BMI 33.4
--- OUTSIDE RECORDS SUMMARY | 2024-11-11 09:34 | XMS_ITS ---
Author Organization [facility] Address [address] [place] [address] Care Team Providers Care Machine Set Up Technician Name Role Phone Brian LAGUERRE, Nakul Primary Care Provider UnaHenry Rubalcava Unavailable [phone] REASON FOR VISIT screening,hx colon cancer,hx polyps PROBLEMS Problem Type ICD Code Onset Dates Problem Status W/U Status Risk SNOMED Code Notes Problem Diverticulosis of large intestine without perforation or abscess without bleeding (K57.30) Active confirmed Diverticul ar disease of colon (360223409) Encounters Encounter Location Date Provider Diagnosis [facility] [place] Outpatient [address] [place], [place] [id number] 06/23/2024 Henry Alvarez Colon cancer scree june Z12.11 ; Colon polyps K63.5 ; Diverticulosis of large intestine without perforation or abscess without bleeding K57.30 and Other hemorrhoids K64.8 ASSESSMENTS Encounter Date Diagnosis Assessment Notes Treatment Notes Treatment Clinical Notes 06/23/2024 Colon cancer screening (ICD-10 - Z12.11) 06/23/2024 Colon polyps (ICD-10 - K63.5) 06/23/2024 Diverticulosis of large intestine without perforation or abscess without bleeding (ICD-10 - K57.30) 06/23/2024 Other hemorrhoids (ICD-10 - K64.8) PLAN OF TREATMENT No Information
--- OUTSIDE RECORDS SUMMARY | 2024-11-11 09:34 | XMS_ITS ---
Author Organization [facility] Address [address] [place] [address] Care Team Providers Care Rhia Name Role Phone Brian LAGUERRE, [place] Primary Care Provider Henry Greco Unavailable [phone] ALLERGIES No Known Allergies REASON FOR VISIT [...] MG/0.5ML Subcutaneous for 28 Active VITAL SIGNS Blood pressure systolic 00 mm Hg 02/26/20 24 Blood pressure diastolic 00 mm Hg 024 Height 74 in 02/26/2024 Weight 267 lbs 02/26/2024 BMI 34.28 kg/m2 02/26/2024 Encounters Encounter Location Date Provider Diagnosis [facility] [address] [place] [address] 02/26/2024 Henry Alvarez History of colon can [...]
--- OUTSIDE RECORDS SUMMARY | 2024-11-11 09:34 | XMS_ITS | Patient Health Record ---
Author Organization [facility] Address [address] [place] [address] Care Team Providers Care Chief Business Officer Name Role Phone Brian LAGUERRE, Nakul Primary Care Provider Henry Greco [phone] ALLERGIES No Known Allergies RESULTS Component Value Reference Range Notes Pathology (Not yet reviewed by provider) Interpretation: Performing Lab:[facility], [address] [place] [phone] Notes/Report: Glucose, Whole Blood Reviewed date:06/23/2024 05:46:37 PM Interpretation: Performing Lab:[facility], [address] [place] [phone] Notes/Report: Glucose, Whole Blood 123 60-115 mg/dL METER # : [id number] REASON FOR REFERRAL No Information MEDICATIONS Medication [...] malignant neoplasm of colon (Z12.11) Active confirmed 927327212 Problem History of adenomatous polyp of colon (Z86.010) Active confirmed 816108368 Problem Diverticulosis of large intestine without perforation or abscess without bleeding (K57.30) Active confirmed Diverticul ar disease of colon (932766156) Problem Preprocedural examination (Z01.818) Active confirmed 606875650903978 Problem History of colon cancer (Z85.038) Active confirmed 542627548 VITAL SIGNS Blood pressure diastolic 00 mm Hg 02/26/2024 Height 74 in 02/26/2024 Blood pressure systolic 00 mm Hg 02/26/2024 Weight 267 lbs 02/26/2024 BMI 34.28 kg/m2 02/26/2024 Encounters Encounter Location Date Provider Diagnosis [facility] [place] Out[place] [address], [place] [id number] 06/23/2024 Henry Alvarez Colon cancer screeni ng Z12.11 ; Colon polyps K63.5 ; Diverticulosis of large intestine without perforation or abscess without bleeding K57.30 and Other hemorrhoids K64.8 [facility] [address] [place] [address] 02/26/2024 Henry Alvarez History of colon can [...] Insured Coverage Start Date Coverage End Date [facility] [address] [place] [address] [phone] [id number] VETO GUTIERREZ Self - patient is the [...] 2006 during followup colonoscopies Colonoscopy in 12-24-2008, [facility] was negative for polyps; colonoscopy in 06/2013 with one tubular adenoma removed Followup screening [place] py in November of 2018 with 2 small tubular adenomas removed HTN IDDM Denies [place],CVA,Lung disease,renal disease Surgical History Surgery Date(Month/Year) appendectomy Laparoscopic sigmoid resecti on by Dr. Rosas in 2003 for a malignant polyp as above-no residual cancer nor invasion--therefore, no chemotherapy required Bilateral catracts 03/2024
== END 2024-11-11 09:35 | disposition home or self-care (01) ==
PROVIDERS: PCP Internal Medicine; Visit Provider Internal Medicine
DX: E11.43 Type 2 diabetes mellitus with diabetic autonomic (poly)neuropathy (principal); E78.00 Pure hypercholesterolemia, unspecified; I10 Essential (primary) hypertension; D64.9 Anemia, unspecified; E55.9 Vitamin D deficiency, unspecified; R60.0 Localized edema; Z85.048 Personal history of other malignant neoplasm of rectum, rectosigmoid junction, and anus; E66.9 Obesity, unspecified

== ENCOUNTER → 2024-11-11 08:54 | Outpatient (BNVA) | payer MEDICARE, SELFPAY | PROVIDERS: PCP Internal Medicine; Visit Provider Internal Medicine | DX: E11.43 Type 2 diabetes mellitus with diabetic autonomic (poly)neuropathy (principal); E78.00 Pure hypercholesterolemia, unspecified; I10 Essential (primary) hypertension; D64.9 Anemia, unspecified; E55.9 Vitamin D deficiency, unspecified; R60.0 Localized edema; E66.9 Obesity, unspecified; Z85.048 Personal history of other malignant neoplasm of rectum, rectosigmoid junction, and anus | CPT/HCPCS: 96127; 99212 ==

== ENCOUNTER 2025-01-10 07:05 | Outpatient (REF) | payer MEDICARE, SELFPAY ==
[2025-01-10 08:45] LABS: Estimated Average Glucose 157 mg/dL; Hemoglobin A1C 185.6831 umol/L; Hemoglobin A1c % 7.1 % (<6.0); Total Hemoglobin (HGBA1C) 3412.9319 umol/L
[2025-01-10 09:13] LABS: Alanine Aminotransferase 16 U/L (0-40); Albumin Level 4.1 g/dL (3.5-5.0); Alkaline Phosphatase 95 U/L (39-117); Anion Gap 11 (12-20); Aspartate Amino Transferase 22 U/L (5-37); Bilirubin Total 0.8 mg/dL (0.0-1.0); Blood Urea Nitrogen 23 mg/dL (9-16); Calcium 9.5 mg/dL (8.4-10.2); Carbon Dioxide 29 mmol/L (22-29); Chloride 102 mmol/L (96-108); Cholesterol 133 mg/dL (<200); Estimated Glomerular Filt Rate > 60; Glucose Fasting 147 mg/dL (60-99); HDL Cholesterol 36 mg/dL (>40); LDL Cholesterol Calculated 77 mg/dL (<100); Sodium 137 mmol/L (135-145); Triglycerides 100 mg/dL (<150)
[2025-01-10 10:03] LABS: Creatinine Urine 80.73 mg/dL; Microalbumin Urine < 5.0 mg/L
== END 2025-01-10 07:06 | disposition home or self-care (01) ==
LOC: HO.LAB 07:05
PROVIDERS: PCP Internal Medicine; Visit Provider Internal Medicine
DX: E78.00 Pure hypercholesterolemia, unspecified (principal); E11.9 Type 2 diabetes mellitus without complications
CPT/HCPCS: 36415; 80053; 80061; 82043; 82570; 83036

== ENCOUNTER 2025-01-12 08:48 | Outpatient (AMB) | payer MEDICARE, SELFPAY ==
--- NOTE | 2025-01-12 08:50 | MHC.PC.OV ---
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 Accompanied by: Self / Same As Patient Allergies No Known Allergies Allergy (Verified 01/12/25 09:12) Medication List - Last Reconciled 01/12/25 by Nakul Torres MD albuterol sulfate 90 mcg/actuation 2 inhalations inhalation Q4-6H PRN atorvastatin 20 mg PO BEDTIME 90 days cholecalciferol (vitamin D3) 50 mcg PO DAILY dulaglutide 1.5 mg (0.5 mL) subcut QWEEK 4 weeks hydrochlorothiazide 12.5 mg PO QAM 90 days insulin glargine U-300 conc (Toujeo SoloStar U-300 Insulin) 35 units (0.1167 mL) subcut DAILY lisinopril 10 mg PO DAILY 90 days metformin 1,000 mg PO BID 90 days pen needle, diabetic (BD Ultra-Fine Racquel Pen Needle) 1 ea subcut DAILY pioglitazone 30 mg PO DAILY 90 days Tobacco use date assessed: 01/12/25 Fall risk assessment: No Falls in past year Last assessed Fall Risk: 01/12/25 Dental Screening Dental Screen Date: 01/12/25 Did you have a dental visit in the last 12 months?: No Did you have a dental problem in the last 6 months where you did not have access to dental care?: No Was dental information given to patient?: No HPI DM, hyperlipidemia, HTN, Hx of colon cancer HPI Details Patient comes in today for his follow up visit for his HTN, DM, hyperlipidemia States that he feels okay He denies any headaches or dizziness Denies any chest pains, no SOB No nausea/vomiting, no abdominal pain No change in bowel habits noted He had his follow up labs done a couple of days ago - to discuss his results [facility] Medical History History of colon cancer Bilateral lower extremity edema Obesity (BMI 30-39.9) History of malignant neoplasm of rectum Vitamin D deficiency Anemia Pure hypercholesterolemia Benign essential hypertension Diabetes mellitus Surgical History Hx of bilateral cataract extraction Hx of appendectomy Hx of colonoscopy History of colon resection (~08/23/04) Family History Father Medical history unknown Mother Hypertension Stroke Diabetes Cancer Social History Housing: Apartment Are you a primary caretaker grounds to a significant other at home: No Do you presently have visiting nurse or other home services: No Alcohol intake: never Patient Tobacco Use Status: Former Tobacco user e-Cigarette/Vaping Use: Never Used Second Hand Smoke Exposure: Yes service: No Current occupational status: retired Cognitive needs: No Hearing needs: No Vision needs: Yes (glasses) Questionnaire PHQ-9 Over the last 2 weeks, how often have you been bothered by any of the following problems? 1. Little interest or pleasure in doing things: not at all 2. Feeling down, depressed, or hopeless: not at all 3. Trouble falling or staying asleep, or sleeping too much: not at all 4. Feeling tired or having little energy: not at all 5. Poor appetite or overeating: not at all 6. Feeling bad about yourself - or that you are a failure or have let yourself or your family down: not at all 7. Trouble concentrating on things, such as reading the newspaper or watching television: not at all 8. Moving or speaking so slowly that other people could have noticed. Or the opposite - being so fidgety or restless that you have been moving around a lot more than usual: not at all 9. Thoughts that you would be better off or of hurting yourself in some way: not at all Total score: 0 Depression Screening Interpretation: Negative Depression Screening Done: Yes 69488 - PHQ-9 Billing: Yes Source: Developed by Drs. Henry Beebe, Lanette Interiano, Nikunj Clifton and colleagues, with an educational pablo from [employer]. Thrive Questionnaire Date Thrive assessed: 01/12/25 I am a: Patient What is your living situation today?: I have a steady place to live Within the past 12 months, did the food you bought not last and you didn't have the money to get more?: Never true Within the past 12 months, did you worry whether your food would run out before you got money to buy more?: Never true Do you have trouble paying for medicines?: No Do you have trouble getting transportation to medical appointments?: No Do you have trouble paying your heating and electricity bill?: No Do you have trouble taking care of your child, family member or friend?: No Do you have trouble with day-to-day activities such as bathing, preparing meals, shopping, managing finances, etc.?: No Are you currently unemployed and looking for a job?: No Are you interested in more education?: No Please select the resources that you would like help with: None Currently or been in a relationship where the following occur: No concerns reported THRIVE Score: 0 AUDIT C Alcohol Use Questionnaire (AUDIT-C) 1. How often do you have a drink containing alcohol?: Never 3. How often do you have six or more drinks on one occasion?: Never Total Score: 0 Score Reviewed/Action Taken: Yes NAYAN-7 AMB Questionnaire NAYAN-7 Date NAYAN - 7 assessed: 01/12/25 Feeling nervous, anxious, or on edge: 0 = Not at all Not being able to stop or control worryin = Not at all Worrying too much about different things: 0 = Not at all Trouble relaxin = Not at all Being so restless that it is hard to sit still: 0 = Not at all Becoming easily annoyed or irritable: 0 = Not at all Feeling afraid as if something awful might happen: 0 = Not at all Total NAYAN-7 score (0-4 normal; 5-9 mild; 10-14 moderate; 15-21 severe): 0 Source: Developed by Drs. Henry Beebe, Lanette Interiano, Nikunj Clifton and colleagues, with an educational pablo from [employer]. Review of Systems Const Denies chills, Reports difficulty sleeping (at times), Denies fatigue, Denies fever(s) and Denies headache(s) ENT Denies dysphagia, Denies dizziness, Denies otalgia, Denies headache(s), Denies neck pain, Denies odynophagia and Denies sore throat Card Denies chest pain, Denies irregular heart rhythm, Denies palpitations and Denies dyspnea Resp Denies chest congestion, Denies cough and Denies dyspnea GI Denies abdominal pain, Denies constipation, Denies dysphagia, Denies heartburn, Denies diarrhea, Denies nausea, Denies odynophagia and Denies vomiting Denies difficulty urinating, Denies dysuria, Denies nocturia and Denies urinary frequency Musc Denies back pain, Denies arthralgias and Denies neck pain Skin/Breast Denies rash Neuro Denies dizziness, Denies headache(s) and Denies paresthesias Psych Denies anxiety Endo Denies fatigue and Denies palpitations Physical exam (Primary Care) Vital Signs: Last Vital Signs Pulse 100 01/12/25 08:51 BP 134/66 01/12/25 08:51 Pulse Ox 98 01/12/25 08:51 Oxygen Delivery Method Room Air 01/12/25 08:51 BMI result Body Mass Index 33.3 Tobacco/Smoking Status: Tobacco use Status Tobacco use date assessed 01/12/25 01/12/25 09:01 Patient Tobacco Use Status Former Tobacco user 01/12/25 09:01 e-Cigarette/Vaping Use Never Used 01/12/25 09:01 PHQ-9: PHQ-9 Score PHQ-9: Total score 0 01/12/25 09:01 Depression Screening Interpretation: Negative Thrive Assessment: Date of Thrive Assessment Date Thrive assessed 01/12/25 01/12/25 09:01 Currently or been in a relationship where the following occur: No concerns reported Const General: no acute distress and alert HENMT Ears: TM's normal bilaterally and EAC's normal Throat: Yes posterior oropharynx normal and Yes tonsils normal (no TP congestion) Neck Neck: Yes supple and No lymphadenopathy Thyroid: Thyroid normal Resp Auscultation: clear to auscultation bilaterally, no rales and no wheezes Cardio Rate: regular rate Rhythm: regular rhythm Heart sounds: no murmurs GI Palpation (GI): Soft to palpation and nontender Auscultation: normal bowel sounds General: Yes no CVA tenderness Back/Spine/Pelvis Back: no CVA tenderness Thoracic/Lumbar Spine: No lumbar spinal tenderness Skin Rashes: no rashes Extrem General: Yes no clubbing, cyanosis or edema Results Reviewed Results Reviewed: Laboratory Tests 04/26/25 07:38 Sodium 137 Potassium 5.0 Creatinine 0.85 Estimated GFR > 60 Fasting Glucose 147 H Hemoglobin A1c % 7.1 H Calcium 9.5 AST 22 ALT 16 Triglycerides 100 Cholesterol 133 LDL Cholesterol, Calc 77 HDL Cholesterol 36 L Coding Level of Care Code Est Pt Level 4 (31036) Complex EM visit Add On G2211 Diagnoses Type 2 diabetes mellitus without complication, without long-term current use of insulin E11.9 Diabetes mellitus type: type 2 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 use: without assisted use Diabetes mellitus complication status: without complication Pure hypercholesterolemia E78.00 Benign essential hypertension I10 Anemia, unspecified type D64.9 Anemia type: unspecified type Vitamin D deficiency E55.9 Bilateral lower extremity edema R60.0 Diabetic autonomic neuropathy associated with type 2 diabetes mellitus E11.43 Diabetes mellitus type: type 2 History of malignant neoplasm of rectum Z85.048 Obesity (BMI 30-39.9) E66.9 Additional Codes PHQ-9 - 93896 - PHQ-9 Billing: Yes ([id number]) Assessment & Plan Assessment & Plan (1) Diabetes mellitus: Code(s): E11.9 - Type 2 diabetes mellitus without complications Category: Medical Qualifiers: Diabetes mellitus type: type 2 Diabetes mellitus assisted insulin use: without longwall shearer operator use Diabetes mellitus complication status: without complication Qualified Code(s): E11.9 - Type 2 diabetes mellitus without complications Plan: His HgbA1c was at 7.1% on his labs done a couple of days ago (was previously at 6.9% a couple of months ago) - goal is <7.0% Reinforced diabetic diet Continue Pioglitazone 30 mg QD, Metformin 1000 mg BID, Toujeo Solostar 35 units SQ QD and Trulicity 1.5 mg SQ once a week He has been referred to endocrinology for further evaluation and management a couple of times over the past 2 years but states that he has been unable to get in to see them and since his diabetes is well-controlled, would like to hold off on referral at this time (2) Pure hypercholesterolemia: Code(s): E78.00 - Pure hypercholesterolemia, unspecified Category: Medical Plan: Results of his labs done a couple of days ago reviewed and discussed with patient Reinforced low cholesterol diet Continue Atorvastatin 20 mg QD Will recheck his labs and fasting lipids in a couple of months for follow up (3) Benign essential hypertension: Code(s): I10 - Essential (primary) hypertension Category: Medical Plan: Reinforced low sodium diet - goal is systolic BP of at least 130 to 140 mm or less Continue HCTZ 12.5 mg QD and Lisinopril 10 mg QD Patient is reminded to continue monitoring his blood pressure regularly (4) Anemia: Code(s): D64.9 - Anemia, unspecified Category: Medical Qualifiers: Anemia type: unspecified type Qualified Code(s): D64.9 - Anemia, unspecified Plan: Stable Will continue to monitor his CBC regularly (5) Vitamin D deficiency: Code(s): E55.9 - Vitamin D deficiency, unspecified Category: Medical Plan: Continue Vitamin D3 2000 units QD (6) Bilateral lower extremity edema: Code(s): R60.0 - Localized edema Category: Medical Plan: This is most likely stasis edema - patient states that this has not been occurring as often as before Patient is encouraged again to elevate his legs and feet as often as he can throughout the day and advised that wearing compression/support stockings may help if his edema starts increasing again It appears that starting him on low dose HCTZ previously also helped address this issue (7) Diabetic autonomic neuropathy: Code(s): E11.43 - Type 2 diabetes mellitus with diabetic autonomic (poly)neuropathy Category: Medical Qualifiers: Diabetes mellitus type: type 2 Qualified Code(s): E11.43 - Type 2 diabetes mellitus with diabetic autonomic (poly)neuropathy Plan: His EMG and NCV done back on 03/07/2023 revealed (+) moderately severe axonal sensory greater than motor peripheral neuropathy in the lower extremities bilaterally. EMG of the right L4-S1 innervated muscles are consistent with distal chronic neuropathic changes of neuropathy Have again advised patient that neuropathy is due to nerve damage and that other than Rx to help control/manage the symptoms, there is nothing we can give or prescribe to help treat or cure the condition Reminded again that the only thing we can do to control this is tight control of his blood sugar to minimize or halt the progression of this condition Patient states that his symptoms are mostly tolerable and do not really bother him too much and he prefers not to take any more medications at this time; states that he will call if his symptoms get significantly worse (8) History of malignant neoplasm of rectum: Code(s): Z85.048 - Personal history of other malignant neoplasm of rectum, rectosigmoid junction, and anus Category: Medical Plan: Follow up with GI (Dr. Alvarez) as scheduled for continuing surveillance He had his repeat colonoscopy last year on 06/23/2024 - colonoscopy came out normal (had a polyp that came out as a hyperplastic polyp on pathology); recommend repeat colonoscopy again in 5 years (2028) (9) Obesity (BMI 30-39.9): Code(s): E66.9 - Obesity, unspecified Category: Medical Plan: Reinforced diet/exercise as tolerated/lose weight Plan Follow up in 4 months Orders: Orders Complete Blood Count Auto Diff 4 Months D64.9 - Anemia, unspecified Comprehensive [place]. Panel Fast 4 Months E78.00 - Pure hypercholesterolemia, unspecified Hemoglobin A1c 4 Months E11.9 - Type 2 diabetes mellitus without complications Vitamin D 25-OH Total 4 Months E55.9 - Vitamin D deficiency, unspecified Lipid Panel 4 Months E78.00 - Pure hypercholesterolemia, unspecified TSH reflex Free T4 4 Months E78.00 - Pure hypercholesterolemia, unspecified UA CC w/rflx Micro + Cult 4 Months R30.0 - Dysuria Microalbumin, Random (w Creat) 4 Months E11.9 - Type 2 diabetes mellitus without complications Vitamin B12 and Folate 4 Months E53.8 - Deficiency of other specified B group vitamins
[2025-01-12 08:51] VITALS: BP 134/66; PULSE 100; O2SAT 98; BMI 33.3
== END 2025-01-12 09:22 | disposition home or self-care (01) ==
LOC: HO.HMCH 08:48
PROVIDERS: PCP Internal Medicine; Visit Provider Internal Medicine
DX: E11.43 Type 2 diabetes mellitus with diabetic autonomic (poly)neuropathy (principal); E78.00 Pure hypercholesterolemia, unspecified; I10 Essential (primary) hypertension; D64.9 Anemia, unspecified; R60.0 Localized edema; E55.9 Vitamin D deficiency, unspecified; Z85.048 Personal history of other malignant neoplasm of rectum, rectosigmoid junction, and anus; E66.9 Obesity, unspecified

== ENCOUNTER → 2025-01-12 08:48 | Outpatient (BNVA) | payer MEDICARE, SELFPAY | PROVIDERS: PCP Internal Medicine; Visit Provider Internal Medicine | DX: E11.43 Type 2 diabetes mellitus with diabetic autonomic (poly)neuropathy (principal); E78.00 Pure hypercholesterolemia, unspecified; I10 Essential (primary) hypertension; D64.9 Anemia, unspecified; E55.9 Vitamin D deficiency, unspecified; R60.0 Localized edema; E66.9 Obesity, unspecified; Z68.33 Body mass index [BMI] 33.0-33.9, adult; Z85.048 Personal history of other malignant neoplasm of rectum, rectosigmoid junction, and anus; Z79.4 Long term (current) use of insulin; Z79.84 Long term (current) use of oral hypoglycemic drugs; Z79.899 Other long term (current) drug therapy | CPT/HCPCS: 96127; 99212 ==

== ENCOUNTER 2025-05-25 06:04 | Outpatient (REF) | payer MEDICARE, SELFPAY ==
--- OUTSIDE RECORDS SUMMARY | 2024-06-23 03:30 | XMS_ITS ---
Author Organization [facility] Address [address] [place] [address] Care Team Providers Care Order Processing Clerk Name Role Phone Brian LAGUERRE, [place] Primary Care Provider Henry Greco Unavailable [phone] REASON FOR VISIT screening,hx colon cancer,hx polyps Problems Problem Type SNOMED Code ICD Code Onset Dates Problem Status W/U Status Risk Notes Problem Diverticular disease of colon (859270598) Diverticulosis of large intestine without perforation or abscess without bleeding (K57.30) Active confirmed Encounters Encounter Location Date Provider Diagnosis [facility] [place] [address] [place] [address] [phone] 06/23/2024 Henry Alvarez Colon cancer scree june [...] Notes * VETO GUTIERREZDOB:1955 (69 yo M)Acc No.[id number]:06/23/2024 COLON WITH MAC Patient: VETO GILLIAM Provider: Jack Alvarez MD :1955 A ge:68 Y S ex:Male Date:06/23/2024 Address:[address] [place] [address] [address], [id number] Pcp:Nakul Torres MD Subjective: * Chief Complaints: [...] 1 Generated for Vinnie mejia/Nyasia/Meenakshiitting on: 0 05/25/2025 06:08 AM EDT
--- OUTSIDE RECORDS SUMMARY | 2025-05-25 06:08 | XMS_ITS | Patient Health Record ---
Author Organization [facility] Address [address] [place] [address] Care Team Providers Care Pad Machine Operator Name Role Phone Brian LAGUERRE, Nakul Primary Care Provider Henry Greco [phone] Allergies No Known Allergies Results Component Value Reference Range Notes Glucose, Whole Blood Reviewed date:06/23/2024 05:46:37 PM Interpretation: Performing Lab:[facility], [address] [place] [phone] Notes/Report: Glucose, Whole Blood 123 60-115 mg/dL METER # : [id number] Pathology Reviewed date:04/29/2025 03:36:16 PM Interpretation: Performing Lab:[address] [phone] Notes/Report: Reason For Referral No Information Medications Medication SIG (Take, Route, Frequency, Duration) Notes Start Date End Date Status Toualycia SoloStar 300 UNIT/ML Subcutaneous for 39 Active [...] Trulicity 0.75 MG/0.5ML Subcutaneous for 28 Active Immunizations Vaccine Route Administration Date Status Comme nts Influenza Unknown 06/17/2018 Administered Problems Problem Type SNOMED Code ICD Code Onset Dates Problem Status W/U Status Risk Notes Problem [id number] Encounter for screening for malignant neoplasm of colon (Z12.11) Active confirmed Problem 897775674 History of adenomatous polyp of colon (Z86.010) Active confirmed Problem Diverticular disease of colon (387057021) Diverticulosis of large intestine without perforation or abscess without bleeding (K57.30) Active confirmed Problem 842214793514323 Preprocedural examination (Z01.818) Active confirmed Problem 364535292 History of colon cancer (Z85.038) Active confirmed Encounters Encounter Location Date Provider Diagnosis [facility] [place] [facility] [place] [address] [place] [phone] 06/23/2024 Henry Alvarez Colon cancer scree june [...] hemorrhoids (ICD-10 - K64.8) Plan Of Treatment Future Test Test Name Order Date COLONOSCOPY 04/15/2013 COLONOSCOPY 10/10/2018 COLONOSCOPY 02/26/2024 Insurance Providers Payer Name Payer Address Payer Phone Subscriber Number Group Number Insured Name Patient Relationship to Insured Coverage Start Date Coverage End Date [facility] [address] [place] [phone] [id number] VETO GUTIERREZ Self - patient is the insured Medical (General) History Medical History History ICD Code History of [...] 2006 during followup colonoscopies Colonoscopy in 12-24-2008, [facility] was negative for polyps; colonoscopy in 06/2013 with one tubular adenoma removed Followup screening [place] py in November of 2018 with 2 small tubular adenomas removed HTN IDDM Denies [place],CVA,Lung disease,renal disease Surgical History Surgery Date(Month/Year) appendectomy Laparoscopic sigmoid resecti on by Dr. Rosas in 2003 for a malignant polyp as above-no residual cancer nor invasion--therefore, no chemotherapy required Bilateral catracts 03/2024
[2025-05-25 06:29] LABS: MANUAL DIFF FLAG NO
[2025-05-25 07:45] LABS: Hemoglobin A1C 200.6925 umol/L; Total Hemoglobin (HGBA1C) 3469.3007 umol/L
[2025-05-25 07:59] LABS: Hematocrit 40.1 % (42.0-52.0); Hemoglobin 13.1 g/dl (14.0-18.0); Imm Gran Abs Auto 0.04 X10*3/uL (0.00-0.03); Imm Gran Pct Auto 0.5 % (0.0-0.4); Lymphocytes Absolute Auto 1.6 X10*3/uL (1.2-4.9); Mean Corpuscular HGB Conc 32.7 g/dl (31.0-36.0); Mean Corpuscular Hemoglobin 31.0 pg (27.0-33.0); Mean Corpuscular Volume 94.8 fL (80.0-98.0); NRBC Abs Auto 0.000 X10*3/uL (0.0-0.012); NRBC Pct Auto 0.0 /100WBC (0.0-0.2); Platelet Count 290 X10*3/uL (160-400); Red Blood Count 4.23 X10*6/uL (4.60-5.80); White Blood Count 8.0 X10*3/uL (4.8-10.8)
[2025-05-25 08:18] LABS: Alanine Aminotransferase 22 U/L (0-40); Albumin Level 4.5 g/dL (3.5-5.0); Alkaline Phosphatase 111 U/L (39-117); Anion Gap 15 (12-20); Aspartate Amino Transferase 25 U/L (5-37); Blood Urea Nitrogen 23 mg/dL (9-16); Calcium 9.5 mg/dL (8.4-10.2); Carbon Dioxide 26 mmol/L (22-29); Chloride 104 mmol/L (96-108); Cholesterol 134 mg/dL (<200); Estimated Glomerular Filt Rate > 60; HDL Cholesterol 36 mg/dL (>40); Potassium 5.2 mmol/L (3.3-5.1); Sodium 140 mmol/L (135-145); Total Protein 7.7 g/dL (6.5-8.0); Triglycerides 109 mg/dL (<150)
[2025-05-25 08:33] LABS: Folate 7.0 ng/mL (> or = 4.0); Vitamin B12 371 pg/mL (200-900)
[2025-05-25 08:51] LABS: Appearance Urine Clear; Glucose Urine UA 100 mg/dL (Negative); PH 5.5 (5.0-9.0); Specific Gravity - Urine 1.010 (1.005-1.025)
[2025-05-25 09:59] LABS: Microalbum/Creatinine Ratio Ur 9.7 ug/mg cr (<30)
== END 2025-05-25 06:05 | disposition home or self-care (01) ==
LOC: HO.LAB 06:04
PROVIDERS: PCP Internal Medicine; Visit Provider Internal Medicine
DX: E11.9 Type 2 diabetes mellitus without complications (principal); E53.8 Deficiency of other specified B group vitamins; E78.00 Pure hypercholesterolemia, unspecified; E55.9 Vitamin D deficiency, unspecified; D64.9 Anemia, unspecified; R30.0 Dysuria
CPT/HCPCS: 36415; 80053; 80061; 81003; 82043; 82306; 82570; 82607; 82746; 83036; 84443; 85025

== ENCOUNTER 2025-05-27 08:53 | Outpatient (AMB) | payer MEDICARE, SELFPAY ==
--- OUTSIDE RECORDS SUMMARY | 2024-06-23 03:30 | XMS_ITS ---
Author Organization [facility] Address [address] [place] [address] Care Team Providers Care Nuclear Process Engineer Name Role Phone Brian LAGUERRE, [place] Primary Care Provider Henry Greco Unavailable [phone] REASON FOR VISIT screening,hx colon cancer,hx polyps Problems Problem Type SNOMED Code ICD Code Onset Dates Problem Status W/U Status Risk Notes Problem Diverticular disease of colon (703191450) Diverticulosis of large intestine without perforation or abscess without bleeding (K57.30) Active confirmed Encounters Encounter Location Date Provider Diagnosis [facility] [place] [address] [place] [id number] 06/23/2024 Henry Alvarez Colon cancer scree june Z12.11 ; Colon polyps K63.5 ; Diverticulosis of large intestine without perforation or abscess without bleeding K57.30 and Other hemorrhoids K64.8 Assessments Encounter Date Diagnosis (ICD Code) Assessment Notes Treatment Notes Treatment Clinical Notes Section Notes 06/23/2024 Colon cancer screening (ICD-10 - Z12.11) 06/23/2024 Colon polyps (ICD-10 - K63.5) 06/23/2024 Diverticulosis of large intestine without perforation or abscess without bleeding (ICD-10 - K57.30) 06/23/2024 Other hemorrhoids (ICD-10 - K64.8) Plan Of Treatment No Information Progress Notes * VETO GUTIERREZDOB:1955 (69 yo M)Acc No.[id number]:06/23/2024 COLON WITH MAC Patient: VETO GILLIAM Provider: Jack Alvarez MD :1955 A ge:68 Y S ex:Male Date:06/23/2024 Address:[address] [place] [address] [address], [id number] Pcp:Nakul Torres MD Subjective: * Chief Complaints: * 1 . Screening,hx colon cancer,hx polyps. * Medical History: Objective: * Vitals: Assessment: * Assessment: 1. C olon cancer screening - Z12.11 (Primary) 2 . C olon polyps - K63.5? 3. D iverticulosis of large intestine without perforation or abscess without bleeding - K57.30 4 . O ther hemorrhoids - K64.8 Plan: * Treatment: * Procedure Codes: 4 5385 LESION REMOVAL COLONOSCOPY, Modifiers: PT , 0529F INTRVL 3+YRS PTS CLNSCP DOCD, Modifiers: 8P , 0528F RCMND FLW-UP 10 YRS DOCD, Modifiers: 1P * * The named appointment provid er may or may not be the originator of this progress note, and it is not deemed complete until electronically signed by the appointment provider. Sign off status: Pending * Provider: Jack Alvarez MD Date: 1 Generated for Vinnie mejia/Nyasia/Meenakshiitting on: 0 05/27/2025 10:27 AM EDT
[2025-05-27 08:56] VITALS: BP 142/68; PULSE 109; O2SAT 96; BMI 33.6
--- NOTE | 2025-05-27 08:56 | A.OFFPC_ITS ---
Vital Signs 05/27/25 08:56 Height 6 ft 2 in Weight 261 lb 8 oz BMI 33.6 BP 142/68 H Blood Pressure Location Lt brachial Position Sitting Pulse 109 H Pulse Source Pulse Oximeter Pulse Oximetry (%) 96 Oxygen Delivery Method Room Air Intake Visit Reasons: hyperlipidemia, DM, HTN Geophysical Support Specialist Required: No Accompanied by: Self / Same As Patient Allergies No Known Allergies Allergy (Verified 05/27/25 09:10) Medication List - Last Reconciled 05/27/25 by Nakul Torres MD albuterol sulfate 90 mcg/actuation 2 inhalations inhalation Q4-6H PRN atorvastatin 20 mg PO BEDTIME 90 days cholecalciferol (vitamin D3) 50 mcg PO DAILY dulaglutide 1.5 mg (0.5 mL) subcut QWEEK 4 weeks hydrochlorothiazide 12.5 mg PO QAM 90 days insulin glargine U-300 conc (Toujeo SoloStar U-300 Insulin) 35 units (0.1167 mL) subcut DAILY lisinopril 10 mg PO DAILY 90 days metformin 1,000 mg PO BID 90 days pen needle, diabetic (BD Ultra-Fine Racquel Pen Needle) 1 ea subcut DAILY pioglitazone 30 mg PO DAILY 90 days Tobacco use date assessed: 05/27/25 Fall risk assessment: No Falls in past year Last assessed Fall Risk: 05/27/25 Dental Screening Dental Screen Date: 05/27/25 Did you have a dental visit in the last 12 months?: No Did you have a dental problem in the last 6 months where you did not have access to dental care?: No Was dental information given to patient?: No HPI hyperlipidemia, DM, HTN HPI Details Patient comes in today for follow up visit for his HTN, DM, hyperlipidemia States that he feels well He denies any headaches or dizziness Denies any chest pains, no increased SOB No nausea/vomiting, no abdominal pain No change in bowel habits noted He had his follow up labs done a couple of days ago - to discuss his results [facility] Medical History History of colon cancer Bilateral lower extremity edema Obesity (BMI 30-39.9) History of malignant neoplasm of rectum Vitamin D deficiency Anemia Pure hypercholesterolemia Benign essential hypertension Diabetes mellitus Surgical History Hx of bilateral cataract extraction Hx of appendectomy Hx of colonoscopy History of colon resection (~08/23/04) Family History Father Medical history unknown Mother Hypertension Stroke Diabetes Cancer Social History Housing: Apartment Are you a primary healthcare customer service to a significant other at home: No Do you presently have visiting nurse or other home services: No Alcohol intake: never Patient Tobacco Use Status: Former Tobacco user e-Cigarette/Vaping Use: Never Used Second Hand Smoke Exposure: Yes service: No Current occupational status: retired Cognitive needs: No Hearing needs: No Vision needs: Yes (glasses) Questionnaire PHQ-9 Over the last 2 weeks, how often have you been bothered by any of the following problems? 1. Little interest or pleasure in doing things: not at all 2. Feeling down, depressed, or hopeless: not at all 3. Trouble falling or staying asleep, or sleeping too much: not at all 4. Feeling tired or having little energy: not at all 5. Poor appetite or overeating: not at all 6. Feeling bad about yourself - or that you are a failure or have let yourself or your family down: not at all 7. Trouble concentrating on things, such as reading the newspaper or watching television: not at all 8. Moving or speaking so slowly that other people could have noticed. Or the opposite - being so fidgety or restless that you have been moving around a lot more than usual: not at all 9. Thoughts that you would be better off or of hurting yourself in some way: not at all Total score: 0 Depression Screening Interpretation: Negative Depression Screening Done: Yes 49339 - PHQ-9 Billing: Yes Source: Developed by Drs. Henry Beebe, Lanette Interiano, Nikunj Clifton and colleagues, with an educational pablo from [employer]. Thrive Questionnaire Date Thrive assessed: 05/27/25 I am a: Patient What is your living situation today?: I have a steady place to live Within the past 12 months, did the food you bought not last and you didn't have the money to get more?: Never true Within the past 12 months, did you worry whether your food would run out before you got money to buy more?: Never true Do you have trouble paying for medicines?: No Do you have trouble getting transportation to medical appointments?: No Do you have trouble paying your heating and electricity bill?: No Do you have trouble taking care of your child, family member or friend?: No Do you have trouble with day-to-day activities such as bathing, preparing meals, shopping, managing finances, etc.?: No Are you currently unemployed and looking for a job?: No Are you interested in more education?: No Please select the resources that you would like help with: None Currently or been in a relationship where the following occur: No concerns reported THRIVE Score: 0 AUDIT C Alcohol Use Questionnaire (AUDIT-C) 1. How often do you have a drink containing alcohol?: Never 3. How often do you have six or more drinks on one occasion?: Never Total Score: 0 Score Reviewed/Action Taken: Yes NAYAN-7 AMB Questionnaire NAYAN-7 Date NAYAN - 7 assessed: 05/27/25 Feeling nervous, anxious, or on edge: 0 = Not at all Not being able to stop or control worryin = Not at all Worrying too much about different things: 0 = Not at all Trouble relaxin = Not at all Being so restless that it is hard to sit still: 0 = Not at all Becoming easily annoyed or irritable: 0 = Not at all Feeling afraid as if something awful might happen: 0 = Not at all Total NAYAN-7 score (0-4 normal; 5-9 mild; 10-14 moderate; 15-21 severe): 0 Source: Developed by Drs. Henry Beebe, Lanette Interiano, Nikunj Clifton and colleagues, with an educational pablo from [employer]. Review of Systems Const Denies chills, Reports difficulty sleeping (at times), Denies fatigue, Denies fever(s) and Denies headache(s) ENT Denies dysphagia, Denies dizziness, Denies otalgia, Denies headache(s), Denies neck pain, Denies odynophagia and Denies sore throat Card Denies chest pain, Denies irregular heart rhythm, Denies palpitations and Denies dyspnea Resp Denies chest congestion, Denies cough and Denies dyspnea GI Denies abdominal pain, Denies constipation, Denies dysphagia, Denies heartburn, Denies diarrhea, Denies nausea, Denies odynophagia and Denies vomiting Denies difficulty urinating, Denies dysuria, Denies nocturia and Denies urinary frequency Musc Denies back pain, Denies arthralgias and Denies neck pain Skin/Breast Denies rash Neuro Denies dizziness, Denies headache(s) and Denies paresthesias Psych Denies anxiety Endo Denies fatigue and Denies palpitations Physical exam (Primary Care) Vital Signs: Last Vital Signs Pulse 109 H 05/27/25 08:56 BP 142/68 H 05/27/25 08:56 Pulse Ox 96 05/27/25 08:56 Oxygen Delivery Method Room Air 05/27/25 08:56 BMI result Body Mass Index 33.6 Tobacco/Smoking Status: Tobacco use Status Tobacco use date assessed 05/27/25 05/27/25 09:01 Patient Tobacco Use Status Former Tobacco user 05/27/25 09:01 e-Cigarette/Vaping Use Never Used 05/27/25 09:01 PHQ-9: PHQ-9 Score PHQ-9: Total score 0 05/27/25 09:15 Depression Screening Interpretation: Negative Thrive Assessment: Date of Thrive Assessment Date Thrive assessed 05/27/25 05/27/25 09:01 Currently or been in a relationship where the following occur: No concerns reported Const General: no acute distress and alert HENMT Ears: TM's normal bilaterally and EAC's normal Throat: Yes posterior oropharynx normal and Yes tonsils normal (no TP congestion) Neck Neck: Yes supple and No lymphadenopathy Thyroid: Thyroid normal Resp Auscultation: clear to auscultation bilaterally, no rales and no wheezes Cardio Rate: regular rate Rhythm: regular rhythm Heart sounds: no murmurs GI Palpation (GI): Soft to palpation and nontender Auscultation: normal bowel sounds General: Yes no CVA tenderness Back/Spine/Pelvis Back: no CVA tenderness Thoracic/Lumbar Spine: No lumbar spinal tenderness Skin Rashes: no rashes Extrem General: Yes no clubbing, cyanosis or edema Results Reviewed Results Reviewed: Laboratory Tests 05/25/25 05/25/25 06:11 06:26 WBC 8.0 Hgb 13.1 L Hct 40.1 L Plt Count 290 Sodium 140 Potassium 5.2 H Creatinine 0.89 Estimated GFR > 60 Fasting Glucose 153 H Hemoglobin A1c % 7.4 H Calcium 9.5 AST 25 ALT 22 Triglycerides 109 Cholesterol 134 LDL Cholesterol, Calc 77 HDL Cholesterol 36 L Vitamin B12 371 25-OH Vitamin D Total 54.9 TSH 1.94 Ur Specific [place] 1.010 Urine Protein Negative Urine Glucose (UA) 100 H Urine Blood Negative Urine Nitrite Negative Ur Leukocyte Esterase Negative Microalb/Creat Ratio 9.7 Coding Level of Care Code Est Pt Level 4 (44932) Diagnoses Type 2 diabetes mellitus without complication, without long-term current use of insulin E11.9 Diabetes mellitus complication status: without complication Diabetes mellitus half-way insulin use: without half-way use Diabetes mellitus type: type 2 Diabetic autonomic neuropathy associated with type 2 diabetes mellitus E11.43 Diabetes mellitus type: type 2 Pure hypercholesterolemia E78.00 Benign essential hypertension I10 Anemia, unspecified type D64.9 Anemia type: unspecified type Vitamin D deficiency E55.9 Bilateral lower extremity edema R60.0 History of malignant neoplasm of rectum Z85.048 Obesity (BMI 30-39.9) E66.9 Additional Codes PHQ-9 - 26561 - PHQ-9 Billing: Yes ([id number]) Assessment & Plan Assessment & Plan (1) Diabetes mellitus: Code(s): E11.9 - Type 2 diabetes mellitus without complications Category: Medical Qualifiers: Diabetes mellitus complication status: without complication Diabetes mellitus half-way insulin use: without manager intermediate use Diabetes mellitus type: type 2 Qualified Code(s): E11.9 - Type 2 diabetes mellitus without complications Plan: His HgbA1c was at 7.4% on his labs done a couple of days ago (was previously at 7.1% a few months ago) - goal is <7.0% Reinforced diabetic diet Continue Pioglitazone 30 mg QD, Metformin 1000 mg BID, Toujeo Solostar 35 units SQ QD and Trulicity 1.5 mg SQ once a week He has been referred to endocrinology for further evaluation and management a couple of times over the past 2 years but states that he has been unable to get in to see them and since his diabetes is well-controlled, would like to hold off on referral at this time (2) Diabetic autonomic neuropathy: Code(s): E11.43 - Type 2 diabetes mellitus with diabetic autonomic (poly)neuropathy Category: Medical Qualifiers: Diabetes mellitus type: type 2 Qualified Code(s): E11.43 - Type 2 diabetes mellitus with diabetic autonomic (poly)neuropathy Plan: His EMG and NCV done back on 03/07/2023 revealed (+) moderately severe axonal sensory greater than motor peripheral neuropathy in the lower extremities bilaterally. EMG of the right L4-S1 innervated muscles are consistent with distal chronic neuropathic changes of neuropathy Have again advised patient that neuropathy is due to nerve damage and that other than Rx to help control/manage the symptoms, there is nothing we can give or prescribe to help treat or cure the condition Reminded again that the only thing we can do to control this is tight control of his blood sugar to minimize or halt the progression of this condition Patient states that his symptoms are mostly tolerable and do not really bother him too much and he prefers not to take any more medications at this time; states that he will call if his symptoms get significantly worse (3) Pure hypercholesterolemia: Code(s): E78.00 - Pure hypercholesterolemia, unspecified Category: Medical Plan: Results of his labs done a couple of days ago reviewed and discussed with patient Reinforced low cholesterol diet Continue Atorvastatin 20 mg QD Will recheck his labs and fasting lipids in a couple of months for follow up (4) Benign essential hypertension: Code(s): I10 - Essential (primary) hypertension Category: Medical Plan: Reinforced low sodium diet - goal is systolic BP of at least 130 to 140 mm or less Continue HCTZ 12.5 mg QD and Lisinopril 10 mg QD Patient is reminded to continue monitoring his blood pressure regularly (5) Anemia: Code(s): D64.9 - Anemia, unspecified Category: Medical Qualifiers: Anemia type: unspecified type Qualified Code(s): D64.9 - Anemia, unspecified Plan: Stable - his H/H was at 13.1/40.1 on his labs done a couple of days ago Will continue to monitor his CBC regularly (6) Vitamin D deficiency: Code(s): E55.9 - Vitamin D deficiency, unspecified Category: Medical Plan: Continue Vitamin D3 2000 units QD (7) Bilateral lower extremity edema: Code(s): R60.0 - Localized edema Category: Medical Plan: Patient states that this has not been occurring as often as before since he was started on HCTZ - is most likely stasis edema Patient is encouraged again to elevate his legs and feet as often as he can throughout the day and advised that wearing compression/support stockings may help if his edema starts increasing again (8) History of malignant neoplasm of rectum: Code(s): Z85.048 - Personal history of other malignant neoplasm of rectum, rectosigmoid junction, and anus Category: Medical Plan: Follow up with GI (Dr. Alvarez) as scheduled for continuing surveillance He had his repeat colonoscopy last year on 06/23/2024 - colonoscopy came out normal (had a polyp that came out as a hyperplastic polyp on pathology); recommend repeat colonoscopy again in 5 years (2028) (9) Obesity (BMI 30-39.9): Code(s): E66.9 - Obesity, unspecified Category: Medical Plan: Reinforced diet/exercise as tolerated/lose weight Plan Follow up in 4 months Orders: Orders Complete Blood Count Auto Diff 4 Months D64.9 - Anemia, unspecified Hemoglobin A1c 4 Months E11.9 - Type 2 diabetes mellitus without complications Microalbumin, Random (w Creat) 4 Months E11.9 - Type 2 diabetes mellitus without complications Vitamin B12 and Folate 4 Months E53.8 - Deficiency of other specified B group vitamins Vitamin D 25-OH Total 4 Months E55.9 - Vitamin D deficiency, unspecified Reticulocyte Count 4 Months D64.9 - Anemia, unspecified Comprehensive [place]. Panel Fast 4 Months E78.00 - Pure hypercholesterolemia, unspecified Lipid Panel 4 Months E78.00 - Pure hypercholesterolemia, unspecified TSH reflex Free T4 4 Months E78.00 - Pure hypercholesterolemia, unspecified UA CC w/rflx Micro + Cult 4 Months R30.0 - Dysuria IRON PROFILE 4 Months D50.9 - Iron deficiency anemia, unspecified Medications: Changed From dulaglutide 1.5 mg (0.5 mL) subcut QWEEK 4 weeks 2 mL 3RF To dulaglutide 3 mg (0.5 mL) subcut QWEEK 2 mL 3RF 4 weeks
--- OUTSIDE RECORDS SUMMARY | 2025-05-27 10:28 | XMS_ITS | Patient Health Record ---
Author Organization [facility] Address [address] [place] [address] Care Team Providers Care Assembly Inspector Helper Name Role Phone Brian LAGUERRE, Nakul Primary Care Provider Henry Greco [phone] Allergies No Known Allergies Results Component Value Reference Range Notes Glucose, Whole Blood Reviewed date:06/23/2024 05:46:37 PM Interpretation: Performing Lab:[facility], [place], [address] [place] [id number] Notes/Report: Glucose, Whole Blood 123 60-115 mg/dL METER # : [id number] Pathology Reviewed date:04/29/2025 03:36:16 PM Interpretation: Performing Lab:[address] [id number] Notes/Report: Reason For Referral No Information Medications [...] Problem Status W/U Status Risk Notes Problem [id number] Encounter for screening for malignant neoplasm of colon (Z12.11) Active confirmed Problem 228777024 History of adenomatous polyp of colon (Z86.010) Active confirmed Problem Diverticular disease of colon (547178909) Diverticulosis of large intestine without perforation or abscess without bleeding (K57.30) Active confirmed Problem [id number] Preprocedural examination (Z01.818) Active confirmed Problem 245164623 History of colon cancer (Z85.038) Active confirmed Encounters Encounter Location Date Provider Diagnosis [facility] [facility] [address] [place] [id number] 06/23/2024 Henry Alvarez Colon cancer scree june [...] Insured Coverage Start Date Coverage End Date [facility] [address] [place] [address] [phone] [id number] VETO GUTIERREZ Self - patient is the [...] 2006 during followup colonoscopies Colonoscopy in 12-24-2008, [facility] was negative for polyps; colonoscopy in 06/2013 with one tubular adenoma removed Followup screening [place] py in November of 2018 with 2 small tubular adenomas removed HTN IDDM Denies RI,CVA,Lung disease,renal disease Surgical History Surgery Date(Month/Year) appendectomy Laparoscopic sigmoid resecti on by Dr. Rosas in 2003 for a malignant polyp as above-no residual cancer nor invasion--therefore, no chemotherapy required Bilateral catracts 03/2024
== END 2025-05-27 09:29 | disposition home or self-care (01) ==
LOC: HO.HMCH 08:54
PROVIDERS: PCP Internal Medicine; Visit Provider Internal Medicine
DX: E11.43 Type 2 diabetes mellitus with diabetic autonomic (poly)neuropathy (principal); E78.00 Pure hypercholesterolemia, unspecified; I10 Essential (primary) hypertension; D64.9 Anemia, unspecified; E55.9 Vitamin D deficiency, unspecified; R60.0 Localized edema; Z85.048 Personal history of other malignant neoplasm of rectum, rectosigmoid junction, and anus; E66.9 Obesity, unspecified

== ENCOUNTER → 2025-05-27 08:53 | Outpatient (BNVA) | payer MEDICARE, SELFPAY | PROVIDERS: PCP Internal Medicine; Visit Provider Internal Medicine | DX: E11.43 Type 2 diabetes mellitus with diabetic autonomic (poly)neuropathy (principal); E78.00 Pure hypercholesterolemia, unspecified; I10 Essential (primary) hypertension; D64.9 Anemia, unspecified; E55.9 Vitamin D deficiency, unspecified; R60.0 Localized edema; E66.9 Obesity, unspecified; Z68.33 Body mass index [BMI] 33.0-33.9, adult; Z85.048 Personal history of other malignant neoplasm of rectum, rectosigmoid junction, and anus; Z79.4 Long term (current) use of insulin; Z79.84 Long term (current) use of oral hypoglycemic drugs; Z79.899 Other long term (current) drug therapy; Z13.31 Encounter for screening for depression; Z13.39 Encounter for screening examination for other mental health and behavioral disorders | CPT/HCPCS: 96127; 99212 ==

== ENCOUNTER 2025-08-03 12:40 | Emergency (ER) | payer MEDICARE, SELFPAY ==
--- NOTE | ~2025-08-03 | XR_ITS ---
EXAMINATION: XR FOOT, LEFT CLINICAL INFORMATION: left heel pain COMPARISON: None available. TECHNIQUE: AP, lateral, and oblique views of the left foot. FINDINGS: Degenerative changes in the tarsal tarsometatarsal. No acute fracture or dislocation. No bony erosions. No periosteal bone reaction. No subcutaneous emphysema. Osteopenia versus osteoporosis. Vascular calcifications. No metallic or radiopaque foreign body. No joint effusion. Small plantar calcaneal spur. XR/XR foot LT 2V IMPRESSION: Degenerative changes without gross osteomyelitis. Atherosclerosis disease, peripheral. Electronically signed by: David Major MD 08/03/2025 02:03 PM [facility]
[2025-08-03 13:14] VITALS: BP 164/82; PULSE 99; RESP 16; TEMP 36.4; O2SAT 97; BMI 34.0
--- NOTE | 2025-08-03 13:20 | ED.GENADULT ---
HPI - General Adult General Chief complaint: Extremity Injury, Lower Stated complaint: Injury Time Seen by Provider: 08/03/25 15:11 Source: patient and family (Significant other at bedside) Mode of arrival: ambulatory Limitations: no limitations History of Present Illness ED Provider: DIONY Wells HPI narrative: 69-year-old male with medical history of T2DM, anemia, HLD, HTN, diabetic neuropathy, history of malignant neoplasm of rectum, presents to the ED due to 3 days of left foot pain. Patient states he has been noticing pain in the heel area of his left foot has taken 1 dose of aspirin without relief. Patient denies injury, fall, trauma to the area or increased physical activity. MD complaint: L heel pain Related Data Home Medications ?Medication ?Instructions ?Recorded ?Confirmed cholecalciferol (vitamin D3) 50 50 mcg PO DAILY 07/15/20 05/27/25 mcg (2,000 unit) capsule Previous Rx's ?Medication ?Instructions ?Recorded pen needle, diabetic 32 gauge x 1 ea subcut DAILY #30 ea 07/28/21 (BD Ultra-Fine Racquel Pen Needle) albuterol sulfate 90 mcg/actuation 2 inh inhalation Q4-6H PRN 12/10/22 breath activated powder inhaler shortness of breath or wheezing #1 ea atorvastatin 20 mg tablet 20 mg PO BEDTIME 90 days #90 tabs 08/13/24 lisinopril 10 mg tablet 10 mg PO DAILY 90 days #90 tabs 08/13/24 hydrochlorothiazide 12.5 mg tablet 12.5 mg PO QAM 90 days #90 tabs 11/11/24 metformin 1,000 mg tablet 1,000 mg PO BID 90 days #180 tabs 11/11/24 pioglitazone 30 mg tablet 30 mg PO DAILY 90 days #90 tabs 11/11/24 insulin glargine U-300 conc 300 35 unit (0.1167 mL) subcut DAILY 05/01/25 unit/mL (1.5 mL) subcutaneous pen #6 mL (Toujeo SoloStar U-300 Insulin) dulaglutide 3 mg/0.5 mL 3 mg (0.5 mL) subcut QWEEK 4 weeks 05/27/25 subcutaneous pen injector #2 mL Allergies Allergy/AdvReac Type Severity Reaction Status Date / Time No Known Allergies Allergy Verified 08/03/25 13:15 [facility] Past Medical History Attestation statement: The following information was validated with the patient. Source: old records reviewed and nursing notes reviewed Medical History History of colon cancer Bilateral lower extremity edema Obesity (BMI 30-39.9) History of malignant neoplasm of rectum Vitamin D deficiency Anemia Pure hypercholesterolemia Benign essential hypertension Diabetes mellitus Surgical History Hx of bilateral cataract extraction Hx of appendectomy Hx of colonoscopy History of colon resection (~08/23/04) Family History Family History Father Medical history unknown Mother Hypertension Stroke Diabetes Cancer Social History Social History Housing: Apartment Are you a primary elderly caregiver to a significant other at home: No Do you presently have visiting nurse or other home services: No Alcohol intake: never Patient Tobacco Use Status: Former Tobacco user e-Cigarette/Vaping Use: Never Used Second Hand Smoke Exposure: Yes Advance Directives: No Advance Directives Information Provided: No service: No Current occupational status: retired Cognitive needs: No Hearing needs: No Vision needs: Yes (glasses) Physical Exam ED Vital Signs: Vital Signs - 24 hr 08/03/25 13:14 Temperature 97.5 F Pulse Rate 99 Respiratory Rate 16 Blood Pressure 164/82 H Pulse Oximetry 97 Oxygen Delivery Method Room Air BMI result Body Mass Index 34.0 GENERAL APPEARANCE: ?AxOx4, generally well-appearing, no acute distress. HEENT: ?NC, AT. MMM. EOMI, clear conjunctiva, oropharynx clear. NECK: ?Supple without lymphadenopathy.? No stiffness or restricted ROM. HEART:? Normal rate and regular rhythm, normal S1/S2, no m/r/g LUNGS:? CTAB, moving air well. No crackles or wheezes are heard. ABDOMEN: ?Soft, nontender, nondistended with good bowel sounds heard. BACK: No CVAT, no obvious deformity. EXTREMITIES: ?Without cyanosis, clubbing or edema. LLE without pitting edema, erythema, warmth, DP pulses 2+ on the left side, the limb is well perfused and vascularly intact, patient is TTP over the calcaneus and into the arch of the foot, ROM is intact, SILT NEUROLOGICAL: ?Grossly nonfocal. Alert and oriented, moving all 4 extremities. Skin: ?Warm and dry without any rash. Course Course Course Narrative: RME: 69 yold male presents to the ED for left heel foot pain for 5 days without any trauma. patient states no swelling, redness, calf pain, chest pain, or shorntess of breath. heel/foot xray ordered. Medications Administered Discontinued Medications Generic Name Dose Route Start Last Admin Trade Name Ralph PRN Reason Stop Dose Admin Acetaminophen 975 mg 08/03/25 16:31 08/03/25 16:40 Acetaminophen 325 Mg Tablet PO 08/03/25 16:32 975 mg ONCE ONE Administration Ketorolac Tromethamine 30 mg 08/03/25 16:31 08/03/25 16:36 Ketorolac Tromethamine 30 Mg/Ml Vial IM 08/03/25 16:32 30 mg ONCE ONE Administration Medical Decision Making Medical Decision Making [facility] Narrative: 69-year-old male with medical history of T2DM, anemia, HLD, HTN, diabetic neuropathy, history of malignant neoplasm of rectum, presents to the ED due to 3 days of left foot pain. Patient states he has been noticing pain in the heel area of his left foot has taken 1 dose of aspirin without relief VS on initial observation-BP 164/82, pulse rate of 99, respiratory rate of 16, afebrile with oral temp of 97.5?, O2 saturation 97% on room air. On physical exam LLE without pitting edema, erythema, warmth, DP pulses 2+ on the left side, the limb is well perfused and vascularly intact, patient is TTP over the calcaneus and into the arch of the foot, ROM is intact, SILT, compartments soft, skin is intact, there are no puncture areas, skin breakdown XR L foot negative for fracture, dislocation however does reveal a small plantar calcaneal spur which is most likely causing his pain. Patient is afebrile and the limb is well perfused. Patient will be given a dose of 30mg IM toradol and 975 po tylenol for pain management. I counseled patient to manage pain at home with Tylenol and ibuprofen. I have placed referral for Podiatry and instructed the patient to call their office tomorrow morning to become established. I counseled patient to follow up with his primary care doctor to ensure resolution of pain. I counseled patient on strict return precautions. Patient feels well enough to go home for self-care and is in agreement with the plan. Differential Diagnosis Differential Diagnoses: The differential diagnosis associated with the presentation includes Compartment syndrome Foot fracture Plantar fasciitis Calcaneal spur Admission/Observation Consideration of admission/observation: Escalation of care including admission/observation considered Independent Interpretation I performed an independent interpretation of an: Plain X-Ray Interpretation: The personally interpreted the XR L foot which was negative for fracture, dislocation, small calcaneal spur is present, I agree with the radiologist's interpretation Radiology Impression Discussion of test interpretation with radiology: I have reviewed the radiologist's reading. Radiologist Impression: XR L foot FINDINGS: Degenerative changes in the tarsal tarsometatarsal. No acute fracture or dislocation. No bony erosions. No periosteal bone reaction. No subcutaneous emphysema. Osteopenia versus osteoporosis. Vascular calcifications. No metallic or radiopaque foreign body. No joint effusion. Small plantar calcaneal spur. XR/XR foot LT 2V IMPRESSION: Degenerative changes without gross osteomyelitis. Atherosclerosis disease, peripheral. Electronically signed by: David Major MD 08/03/2025 02:03 PM [facility] Dictated By: David Flowers MD Signed By: <Electronically signed by David Miguel MD in OV> 08/03/25 1403 Independent Historian Clinical information obtained from an independent historian. History obtained from or confirmed by: Spouse (Significant other at bedside) External Record Review External record reviewed: Inpatient record, Office record and Outpatient record Prescription Management I considered prescription management with: Antibiotic No erythema, no warmth, no edema, no areas of skin breakdown, no punctate wounds, skin intact on the foot no indication for antibiotics at this time Chronic Conditions Patient?s care impacted by: Diabetes, Hypertension, Cancer (History of malignant neoplasm of the rectum) and Other (Anemia, HLD, diabetic neuropathy) Discharge Plan Discharge Clinical Impression: Calcaneal spur Patient Disposition: Home, Self-Care Additional Instructions: You were evaluated in the ED today due to pain of your left foot. Your x-ray was negative for fracture, dislocation, however did show a calcaneal spur of your left foot that is most likely causing her problems. Your physical exam was reassuring as you did not have any areas of broken skin or puncture wounds on the foot. To manage pain at home you can take 500 mg of Tylenol, and 400 mg of ibuprofen every 6 hours. I have placed a referral for Podiatry. You need to call their office tomorrow morning as they will not call you. Please follow up with your primary care doctor to ensure resolution of your symptoms and that you have appropriate follow up with Podiatry. Please return to the emergency department if you experience fevers over 100.4?, worsening pain in your left foot, numbness or tingling of your left foot, temperature changes, redness, swelling or any new/worsening/concerning symptoms. Prescriptions: No Action pen needle, diabetic [BD Ultra-Fine Racquel Pen Needle] 32 gauge x 5/32 needle 1 ea subcut DAILY Qty: 30 12RF Toujeo SoloStar U-300 Insulin 300 unit/mL (1.5 mL) insulin pen 35 unit subcut DAILY Qty: 6 3RF albuterol sulfate 90 mcg/actuation aerosol powdr breath activated 2 inh inhalation Q4-6H PRN (Reason: shortness of breath or wheezing) Qty: 1 0RF cholecalciferol (vitamin D3) 50 mcg (2,000 unit) capsule 50 mcg PO DAILY hydrochlorothiazide 12.5 mg tablet 12.5 mg PO QAM 90 Days Qty: 90 3RF metformin 1,000 mg tablet 1,000 mg PO BID 90 Days Qty: 180 3RF pioglitazone 30 mg tablet 30 mg PO DAILY 90 Days Qty: 90 3RF dulaglutide 3 mg/0.5 mL pen injector 3 mg subcut QWEEK 28 Days Qty: 2 3RF atorvastatin 20 mg tablet 20 mg PO BEDTIME 90 Days Qty: 90 3RF lisinopril 10 mg tablet 10 mg PO DAILY 90 Days Qty: 90 3RF Referrals: Prieto Hanson DPM [Physician, Podiatry] Donnie Rodriguez DPM [Certified Phlebotomy Technician, Podiatry] Referral Note: calcaneal spur of L heel Discharge Date/Time: 08/03/25 16:53 Print Language: Malawian
== END 2025-08-03 16:53 | disposition home or self-care (01) ==
PROVIDERS: Emergency Provider Emergency Medicine; PCP Internal Medicine
DX: S99.922A Unspecified injury of left foot, initial encounter (principal); M77.32 Calcaneal spur, left foot; X58.XXXA Exposure to other specified factors, initial encounter; Y93.9 Activity, unspecified; Y92.9 Unspecified place or not applicable; Y99.8 Other external cause status; Z79.899 Other long term (current) drug therapy
CPT/HCPCS: 73620; 96372; 99282; 99284; J1885

== ENCOUNTER → 2025-08-03 13:20 | Outpatient (BNV) | payer MEDICARE, SELFPAY | PROVIDERS: Visit Provider Radiology Diagnostic Radiology | DX: M19.072 Primary osteoarthritis, left ankle and foot (principal); I70.202 Unspecified atherosclerosis of native arteries of extremities, left leg | CPT/HCPCS: 73620 ==

== ENCOUNTER 2025-08-24 08:01 | Outpatient (AMB) | payer MEDICARE, SELFPAY ==
[2025-08-24 08:08] VITALS: BMI 33.4
--- NOTE | 2025-08-24 08:08 | A.OFFVIS_ITS ---
Vital Signs 08/24/25 08:08 Height 6 ft 2 in Weight 260 lb BMI 33.4 Intake Visit Reasons: L heel pain Intake Note: Lance is a 69 year old male who presents to the office today as a new patient visit referred by [facility] ED for left heel pain. Pt was seen at the ED on 08/03/25 and X-ray was obtained that revealed a small plantar calcaneal spur. Pt states the pain has been going on for about 1 month and he has tried taking aspirin to help manage his pain symptoms and has found temporary relief. Allergies No Known Allergies Allergy (Verified 08/24/25 08:08) HPI HPI L heel pain: Details: 69 y/o male past medical history of diabtes mellitus type 2, hyperlipidemia, hypertension, presents for painful left heel. The pain started 1 month ago, is worst first step in the morning, and improves by the end of the day. He rates his pain an 8/10 at its worst. He has not tried treatment so far other than aspirin. 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 He endorses occasional numbness/tingling to his feet. Denies any burning. Denies history of ulcerations. Denies calf/thigh cramping when ambulating. [facility] Medical History History of colon cancer Bilateral lower extremity edema Obesity (BMI 30-39.9) History of malignant neoplasm of rectum Vitamin D deficiency Anemia Pure hypercholesterolemia Benign essential hypertension Diabetes mellitus Surgical History Hx of bilateral cataract extraction Hx of appendectomy Hx of colonoscopy History of colon resection (~08/23/04) Family History Father Medical history unknown Mother Hypertension Stroke Diabetes Cancer Social History Housing: Apartment Are you a primary date night caregiver to a significant other at home: No Do you presently have visiting nurse or other home services: No Alcohol intake: never Patient Tobacco Use Status: Former Tobacco user e-Cigarette/Vaping Use: Never Used Second Hand Smoke Exposure: Yes service: No Current occupational status: retired Cognitive needs: No Hearing needs: No Vision needs: Yes (glasses) Review of Systems Const All systems reviewed & are unremarkable except as noted in HPI and below Physical Exam Vital Signs: BMI result Body Mass Index 33.4 Extrem Other: *Bilateral Lower Extremity Focused Diabetic Foot Exam Vascular: DP/PT non-palpable, CFT<3s to digits, TG warm to cool, pedal hair absent Derm: Skin: dry, cracked skin (xerosis) bilateral feet Interdigital spaces: Clear, no maceration or fungal infection. Nails: Thickened elongated dystrophic discolored toenails x 10. Neuro: Bardolph-noni monofilament (10g) test 8/10 intact to right foot, 8/10 intact to left foot. Msk: Mild tenderness on palpation of the left plantar medial calcaneal tubercle. No pain along the plantar fascial band. No pain to the Achilles tendon. Deformities: Mild flexion deformity 2 through 5 bilateral Muscle strength: 5/5 in all muscle groups. Gait: Normal, no antalgic or steppage gait observed. Footwear Assessment: Shoes inspected; appropriate fit, no excessive wear, or foreign objects noted. Office Procedures AMB Debridement/Avulsion Podia Details: Procedure: Nail debridement Location: 10 nails, bilateral feet Anesthesia: N/A Description: The affected toenails were cleansed with an antiseptic solution. Using sterile nail nippers and a rotary mariel, dystrophic and mycotic nail material was carefully debrided and reduced in thickness. Care was taken to avoid trauma to the surrounding skin and nail bed. All debris was removed as tolerated. The area was inspected for signs of infection or ulceration. Patient tolerated the procedure well without complications. Tolerance: Patient tolerated procedure well, no immediate complications. Class B findings as per physical exam findings above. The patient has a diagnosis of diabetes mellitus and presents with elongated, thickened toenails. Due to underlying diabetic neuropathy and mild vascular disease findings, the patient is at increased risk for complications such as ulceration, infection, and difficulty with self-care. Debridement of elongated toenails is medically necessary to prevent development of pressure-related lesions, reduce risk of secondary infection, and maintain foot health in high- risk comorbidities. 08675-[id number] of Nail 6+ Procedure code (CPT) selection complete Results Reviewed Results Reviewed: Laboratory Tests 09/08/25 06:26 Hemoglobin A1c % 7.4 H X-ray Read: X-ray left foot 3 views (AP, MO, Lateral) reviewed which shows mild plantar calcaneal spur, diffuse sclerotic vessels in the forefoot and ankle. I personally reviewed the imaging and my findings are listed above. Assessment & Plan Assessment & Plan (1) Diabetic autonomic neuropathy: Code(s): E11.43 - Type 2 diabetes mellitus with diabetic autonomic (poly)neuropathy Category: Medical Qualifiers: Diabetes mellitus type: type 2 Qualified Code(s): E11.43 - Type 2 diab etes mellitus with diabetic autonomic (poly)neuropathy Plan: Risk Stratification: No current ulceration, infection, or pre-ulcerative lesion. (+) loss of protective sensation (+) signs of peripheral arterial disease. Referred for lower extremity arterial duplex study. Patient is at moderate risk for diabetic foot complications at this time. Recommendations: Continue routine foot care and daily self-inspection. Recommend moisturizing daily. Amlactin prescribed. Recommend supportive proper fitting shoe-wear. The patient may require diabetic shoes in the future. Reinforced diabetic foot education and risks from peripheral neuropathy. (2) Peripheral artery disease: Code(s): I73.9 - Peripheral vascular disease, unspecified Category: Medical Plan: * Referred for bilateral lower extremity US arterial duplex (3) Tinea unguium: Code(s): B35.1 - Tinea unguium Category: Medical Plan: * Debrided nails x10 Orders: Orders US arterial duplex LE BI Today I73.9 - Peripheral vascular disease, unspecified Medications: New ammonium lactate 12% (AmLactin) Apply to bottom of both feet 1 appl topical DAILY 225 grams 1RF diabetic neuropathic skin E11.43 - Type 2 diabetes mellitus with diabetic autonomic (poly)neuropathy Coding Level of Care Code New Pt Level 4 (18887) Diagnoses Diabetic autonomic neuropathy associated with type 2 diabetes mellitus E11.43 Diabetes mellitus type: type 2 Peripheral artery disease I73.9 Tinea unguium B35.1 CPT Codes Skin Debridement - CPT: 66091-Mumhcitdjxg of Nail 6+ ([id number]) Time Spent (min) 35
--- OUTSIDE RECORDS SUMMARY | 2025-08-24 08:10 | XMS_ITS | Patient Health Record ---
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 Name Role Phone Nakul Torres MD Primary Care Provider Henry Greco Unavailable [phone] Allergies No Known Allergies Reason For Referral No Information Medications Medication SIG (Take, Route, Frequency, Duration) Notes Start Date End Date Status Toujeo SoloStar 300 UNIT/ML Solution Pen-injector Subcutaneous; Duration: 39 Active Lisinopril 5 MG Tablet 1 tablet Orally O nce a day Active Vitamin D 2000 UNIT Tablet 1 tablet Orally Once a day; Duration: 30 day(s) Active Vitamin B Complex - Tablet as directed Orally once a day Active Atorvastatin Calcium 10 MG Tablet 1 tablet Orally Once a day; Duration: 30 day(s) Active metFORMIN HCl 1000 MG Tablet Oral; Duration: 90 Active Pioglitazone HCl 30 MG Tablet TAKE 1 TABLET BY MOUTH ONCE DAILY Oral; Duration: 90 E119,Unavailabl e Active Trulicity 0.75 MG/0.5ML Solution Pen-injector Subcutaneous; Duration: 28 Active Immunizations Vaccine Route Administration Date Status Comme nts Influenza Unknown 06/17/2018 Administered Social History Social History Additional Details Category Social Info Options Details Miscellaneous: Marital status: Occupation: Works at the [employer] in [place]--retiring in 12/2018 Section Notes: Nonsmoker > 10 yrs ago; drin ks alcohol only occasionally-heavier until about 2009 Nonsmoker > 10 yrs ago; drin ks alcohol only occasionally-heavier until about 2009 Nonsmoker > 10 yrs ago; drin ks alcohol only occasionally-heavier until about 2009 Problems Problem Type SNOMED Code ICD Code Onset Dates Problem Status W/U Status Risk Notes Problem Screening for malignant neoplasm of colon (105780258) Encounter for screening for malignant neoplasm of colon (Z12.11) Active confirmed Problem History of adenomatous polyp of colon (243614543) History of adenomatous polyp of colon (Z86.010) Active confirmed Problem Diverticular disease of colon (346172116) Diverticulosis of large intestine without perforation or abscess without bleeding (K57.30) Active confirmed Problem Preprocedural examination (128185353602693) Preprocedural examination (Z01.818) Active confirmed Problem History of malignant neoplasm of colon (019389988) History of colon cancer (Z85.038) Active confirmed Plan Of Treatment Future Test Test Name Order Date COLONOSCOPY 04/15/2013 COLONOSCOPY 10/10/2018 COLONOSCOPY 02/26/2024 Insurance Providers Payer Name Payer Address Payer Phone Subscriber Number Group Number Insured Name Patient Relationship to Insured Coverage Start Date Coverage End Date [facility] [address] [place] [phone] [id number] VETO GUTIERREZ Self - patient is the [...] during followup colonoscopies Colonoscopy in 12-24-2008, [facility] was negative for polyps; colonoscopy in 06/2013 with one tubular adenoma removed Followup screening [facility] py in November of 2018 with 2 small tubular adenomas removed HTN IDDM Denies PR,CVA,Lung disease,renal disease Surgical History Surgery Date(Month/Year) appendectomy Laparoscopic sigmoid resecti on by Dr. Rosas in 2003 for a malignant polyp as above-no residual cancer nor invasion--therefore, no chemotherapy required Bilateral catracts 03/2024
== END 2025-08-24 08:43 | disposition home or self-care (01) ==
LOC: HO.HPODS 08:02
PROVIDERS: PCP Internal Medicine; Visit Provider Student in an Organized Health Care Education/Training Program
DX: E11.43 Type 2 diabetes mellitus with diabetic autonomic (poly)neuropathy (principal); I73.9 Peripheral vascular disease, unspecified; B35.1 Tinea unguium
CPT/HCPCS: 11721; 99204

== ENCOUNTER → 2025-08-24 08:01 | Outpatient (BNVA) | payer MEDICARE, SELFPAY | PROVIDERS: PCP Internal Medicine; Visit Provider Student in an Organized Health Care Education/Training Program | DX: E11.43 Type 2 diabetes mellitus with diabetic autonomic (poly)neuropathy (principal); I73.9 Peripheral vascular disease, unspecified; B35.1 Tinea unguium | CPT/HCPCS: 11721; 99202 ==